=== PATIENT | male | born 1945 | race Caucasian/White ===

== ENCOUNTER 2024-04-25 13:10 | Inpatient (IN) | payer OTHER, SELFPAY ==
[2024-04-25] VITALS (11 sets, daily range): BP systolic 120–146; BP diastolic 53–83; PULSE 78–89; RESP 20–42; TEMP 36.1–37.1; O2SAT 87–99; BMI 25.0; BMI 25.2
--- NOTE | 2024-04-25 14:38 | XR_ITS ---
Examination: PA lateral chest 2 views Technique: Upright PA lateral chest 2 views Exam date and time: April 25, 2024 1458 hrs. Indications: Shortness of breath today. Findings: Extensive bilateral pneumonia, poorly defined pulmonary mass in the lingular segment Please see the PET/CT scan report 01/22/2024 indicating mediastinal lymphadenopathy and 4.9 cm pulmonary mass left lung Moderate to large right pleural effusion Normal heart size Impression: Extensive bilateral pneumonia Moderate to large right pleural effusion Pulmonary mass in the lingular segment
--- NOTE | 2024-04-25 14:38 | EKG_ITS ---
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
--- NOTE | 2024-04-25 14:39 | EDNOTE_ITS ---
ED General RME/HPI General Chief complaint: Shortness of Breath/Dyspnea Stated complaint: SHORTNESS OF BREATH Time Seen by Provider: 04/25/24 16:42 Arrival date/time: 04/25/24 13:10 CC: Shortness of breath HPI ongoing for the past days progressive worsening, the patient has a history of COPD lung cancer and Parkinson's. States that this episode is lasting 3 days with worsening shortness of breath. Last episode was 1 month ago where the patient's chronic shortness of breath worsened. and patient deny any fever but states he has had a positive cough. Denies any chest pain at this time. Related Data Home Medications ?Medication ?Instructions ?Recorded ?Confirmed cholecalciferol (vitamin D3) 10 400 mg PO DAILY SUPPLEMENT ##0 03/29/13 02/18/24 mcg (400 unit) tablet (Vitamin D3) finasteride 5 mg tablet 5 mg PO DAILY ##0 03/29/13 02/18/24 omeprazole 40 mg capsule,delayed 40 mg PO QDAY 01/23/18 02/18/24 release albuterol sulfate 90 mcg/actuation 2 puff inhalation Q4H PRN sob 10/08/21 02/18/24 aerosol inhaler aspirin 81 mg tablet,delayed 81 mg PO QDAY 10/08/21 02/18/24 release carbidopa ER 50 mg-levodopa 200 mg 1 tab PO HS 10/08/21 09/13/22 tablet,extended release cetirizine 10 mg tablet 10 mg PO QDAY 10/08/21 02/18/24 diclofenac sodium 0.1 % eye drops 1 drp ophthalmic (eye) BID 10/08/21 09/13/22 fluticasone 250 mcg-salmeterol 50 1 inh inhalation BID 10/08/21 09/13/22 mcg/dose blistr powdr for inhalation (Wixela Inhub) melatonin 5 mg tablet 5 - 10 mg PO HS 10/08/21 02/18/24 metformin 750 mg tablet,extended 750 mg PO QDAY 10/08/21 02/18/24 release 24 hr moxifloxacin 0.5 % eye drops 1 drp ophthalmic (eye) QID 10/08/21 09/13/22 paroxetine HCl 40 mg tablet 40 mg PO QDAY 10/08/21 02/18/24 prednisolone acetate 1 % eye 1 drp ophthalmic (eye) QID 10/08/21 09/13/22 drops,suspension roflumilast 500 mcg tablet 500 mcg PO QDAY 10/08/21 02/18/24 simvastatin 40 mg tablet 60 mg PO HS 10/08/21 02/18/24 tiotropium bromide 2.5 2 puff inhalation QDAY 10/08/21 09/13/22 mcg/actuation mist for inhalation trazodone 100 mg tablet 150 mg PO HS 10/08/21 02/18/24 docusate sodium 250 mg capsule 250 mg PO QDAY 09/13/22 09/13/22 isosorbide mononitrate 30 mg 30 mg PO QDAY 09/13/22 09/13/22 tablet,extended release 24 hr carbidopa 25 mg-levodopa 100 mg 1 tab PO QID 02/18/24 02/18/24 tablet carbidopa ER 50 mg-levodopa 200 mg 1 tab PO QDAY 02/18/24 02/18/24 tablet,extended release donepezil 5 mg tablet 5 mg PO QDAY 02/18/24 02/18/24 fluticasone 500 mcg-salmeterol 50 1 inh inhalation Q12H 02/18/24 02/18/24 mcg/dose blistr powdr for inhalation (Wixela Inhub) metoprolol succinate 100 mg 100 mg PO QDAY 02/18/24 02/18/24 tablet,extended release 24 hr Previous Rx's ?Medication ?Instructions ?Recorded methylprednisolone 4 mg tablets in 4 mg PO QDAY #21 tabs 09/15/22 a dose pack (Medrol (Idris)) hydrocodone 5 mg-acetaminophen 325 1 tab PO Q6H PRN pain #20 tabs 04/28/23 mg tablet Allergies Allergy/AdvReac Type Severity Reaction Status Date / Time No Known Allergies Allergy Verified 04/25/24 13:16 Review of Systems Review of Systems Narrative Review of Systems: GEN: No fever, no chills, no weight loss EYES: No discharge, no visual changes, no pain HEENT: No ear pain, no congestion, no sore throat PULM: + shortness of breath, +cough, no congestion CV: No chest pain, no dyspnea on exertion, no palpitations GI: No nausea, no vomiting, no diarrhea, no pain, no constipation : No frequency, no urgency, no dysuria MUSC/SKEL: No joint pain, no back pain SKIN: No rash PSYCH: No hallucinations, no depression HEME/LYMPH: No easy bleeding or bruising tendencies NEURO: No weakness, no headache Past Medical History Past Medical History NEUROLOGIC: Positive Neurological Disorders and Transient Ischemic Attacks (TIA) CARDIAC: Positive Cardiac Disorders, Hypercholesterolemia, Congestive Heart Failure and Hypertension RESPIRATORY: Positive Chronic Obstructive Pulmonary Disease (COPD) and Pneumonia GASTROINTESTINAL: Positive Gastrointestinal Disorders GENITOURINARY: Negative Genitourinary Disorders or Renal Disease MUSCULOSKELETAL: Positive Musculoskeletal Disorders, Arthritis, Gout and Fractures ENT: Positive Cataracts ENDOCRINE: Positive Endocrine Disorders and Diabetes Mellitus Type 2; Negative Diabetes Mellitus Type 1 HEMATOLOGIC: Negative Blood Disorders OTHER HISTORY: Positive Falls, Chicken Pox, Measles and Mumps; Negative Autoimmune Disease Family History FAMILY HISTORY: Positive Family Respiratory Disorders and Family Cardiac Disorders; Negative Family Psychiatric Problems, Family Gastrointestinal Problems, Family Cancer, Family Surgery or Family Anesthesia Reaction Surgical History SURGICAL: Positive Abdominal Surgery Social History SMOKING STATUS: Never smoker SECOND HAND EXPOSURE: No SUBSTANCE USE: former substance user (marijuana) ED Exam Narrative Physical exam: [General: Mild discomfort but not in any acute distress Head normocephalic HEENT: Eyes: Pupils are PERRLA EOMs are intact all other subsystems of HEENT are within acceptable limits Neck is supple nontender no JVD Chest equal chest rise nontender to palpation Respiratory: Tachypneic, clear to auscultation no wheezes crackles or rubs CV: Rate rhythm is regular no murmurs rubs or clicks Abdomen is soft nontender no masses positive bowel sounds all 4 quadrants Back: No CVA tenderness no spinous process tenderness from cervical spine thoracic and lumbar spine Skin: Intact no petechiae rash induration ulceration or crepitus Extremities: Moving all extremity against resistance cap refill less than 2 seconds neurosensory intact Neuro: Awake alert oriented x3 Glascow coma 15 no focal deficits] Course Course Course Narrative: Patient's case, laboratory findings and imaging discussed Dr. Gregorio, resident, for Dr. Hill who agrees to accept the patient for admission. Quality Measures none Orders Category Date Time Status Bedside COVID-19 Antigen Test NOW Care 04/25/24 14:38 Completed EKG (ED ONLY) *Do not use* NOW Care 04/25/24 14:38 Completed EKG (ED Only) Stat Exams 04/25/24 14:38 Draft XR chest 2V Stat Exams 04/25/24 14:38 Completed B-Type Natriuretic Peptide Stat Lab 04/25/24 15:57 Completed CBC Stat Lab 04/25/24 15:57 Completed Comprehensive Metabolic Panel Stat Lab 04/25/24 15:57 Completed Drug Screen,Urine Stat Lab 04/25/24 17:55 Completed Influenza A & B Rapid Panel Stat Lab 04/25/24 15:14 Completed LDH (Lactate Dehydrogenase) Stat Lab 04/25/24 15:57 Completed Magnesium Stat Lab 04/25/24 15:57 Completed Partial Thromboplastin Time Stat Lab 04/25/24 15:57 Completed Prothrombin Time with INR Stat Lab 04/25/24 15:57 Completed Troponin I Stat Lab 04/25/24 15:57 Completed Urinalysis Stat Lab 04/25/24 17:53 Completed cefTRIAXone/D5w 1gm IV premix [Rocephin/D5w 1gm IV Med 04/25/24 16:42 Discontinued premix] 50 ml IV X1 Vital Signs Vital signs: Vital Signs Temperature 98.2 F 04/25/24 13:59 Pulse Rate 78 04/25/24 13:59 Respiratory Rate 20 04/25/24 13:59 Blood Pressure 124/69 04/25/24 13:59 Pulse Oximetry (%) 95 04/25/24 13:59 Oxygen Delivery Method Nasal Cannula 04/25/24 13:59 Oxygen Flow Rate 6 04/25/24 13:59 [facility] Patient data External records reviewed:: [facility] previous records Clinical information provided by:: patient and spouse Social determinants that could affect healthcare access:: none Patient has the following chronic illnesses:: COPD lung cancer Parkinson's How is presenting disease/condition affected by chronic disease/condition?: e xacerbated by Evaluation data The following diagnostics were reviewed and interpreted by me:: lab results, radiology exam(s) and EKG tracing(s) Lab and/or radiology exams considered but not ordered:: CBC shows a leukocytosis 17,000 , stable anemia, no thrombocytopenia EKG performed at 1459 shows a ventricular rate of 81 OH interval 163 QRS of 92 QTc of 428 this is sinus rhythm with occasional PVC. Chest x-ray shows significant pneumonia with moderate to large pleural effusion. Coags within acceptable limits Interpretation Summary: Laboratory results show significant pneumonia in addition to a moderate to large sized pleural effusion with a history of lung cancer I am not sure if this is a malignant effusion or not. Patient will need to be admitted for further workup and evaluation. Medications Medications considered but not ordered:: None Medication administrations:: Medication Administration History Acetaminophen (Acetaminophen 325 Mg Tablet) 650 mg PO Q6H PRN PRN Reason: Fever >100.5 Stop: 05/25/24 17:46 Acetaminophen (Acetaminophen 325 Mg Tablet) 650 mg PO Q6H PRN PRN Reason: PAIN SCALE 1-3 (mild Stop: 05/25/24 17:46 Albuterol/Ipratropium (Albuterol/Ipratropium (Duoneb) Rt Lianna 3 Ml Nebu) 3 ml INH Q6HRRT BETTYE Stop: 05/25/24 18:59 Last Admin: 04/25/24 18:30 Dose: 3 ml Documented By: JACQUIE Albuterol/Ipratropium (Albuterol/Ipratropium (Duoneb) Rt Lianna 3 Ml Nebu) 3 ml INH Q4HRRT PRN PRN Reason: shortness of breath Stop: 05/25/24 18:59 Azithromycin (Azithromycin 250 Mg Tablet) 500 mg PO QDAY [facility] Stop: 05/02/24 17:59 Last Admin: 04/25/24 19:17 Dose: 500 mg Documented By: EVITA Dextrose (Dextrose 50%-Water Inj 50 Ml Syringe) 25 ml IV Q15MIN PRN PRN Reason: BG 50-70 responsive npo pt Stop: 05/25/24 20:22 Dextrose (Dextrose 50%-Water Inj 50 Ml Syringe) 50 ml IV Q15MIN PRN PRN Reason: BG <50 OR BG <70 & pt unresponsive Stop: 05/25/24 20:22 Docusate Sodium (Docusate Sod 100 Mg Capsule) 100 mg PO QDAY [facility]; Protocol Stop: 05/25/24 17:59 Last Admin: 04/25/24 19:18 Dose: 100 mg Documented By: EVITA Glucagon (Glucagon Inj 1 Mg Vial) 1 mg IM Q15MIN PRN PRN Reason: BG <70, and no IV access Heparin Sodium (Porcine) (Heparin Sod Inj 5000 Unit/Ml Vial) 5,000 unit SC Q8HR BETTYE Stop: 05/09/24 17:59 Last Admin: 04/25/24 22:08 Dose: 5,000 unit Documented By: ISREAL Co-signed By: SHANKAR Admin: 12/22/24 19:18 Dose: 5,000 unit Documented By: EVITA Co-signed By: YONI Ceftriaxone Sodium/Dextrose (Rocephin/D5w 1gm Iv Premix) 50 mls @ 100 mls/hr IV QDAY [facility] Stop: 05/03/24 08:59 Insulin Human Lispro (Insulin Lispro (Admelog) 1 Unit/0.01 Ml Unit) 0 unit SC [facility]; Protocol Stop: 05/25/24 20:59 Last Admin: 04/25/24 22:21 Dose: Not Given Documented By: ISREAL Non-Admin Reason: Patient Refused Insulin Human Regular (Insulin Hum Regular 1 Unit/0.01 Ml (Per Unit)) 0 unit SC [facility]; Protocol Stop: 05/25/24 20:59 Methylprednisolone Sodium Succinate (Methylprednisolone Sod Succ 40 Mg Vial) 40 mg IVP BID [facility] Stop: 05/02/24 20:59 Last Admin: 04/25/24 21:57 Dose: 40 mg Documented By: ISREAL Ondansetron HCl (Ondansetron Inj 2 Mg/Ml Inj 2 Ml) 4 mg IV Q6H PRN; Protocol PRN Reason: NAUSEA OR VOMITING Stop: 05/25/24 17:46 Discontinued Medications Ceftriaxone Sodium/Dextrose (Rocephin/D5w 1gm Iv Premix) 50 mls @ 100 mls/hr IV X1 ONE Stop: 04/25/24 17:11 Last Infusion: 04/25/24 19:05 Dose: Infused Documented By: Admin: 04/25/24 17:19 Dose: 100 mls/hr Documented By: CAR Magnesium Sulfate (Magnesium Sulfate Ivpb) 4 gm in 50 mls @ 12.5 mls/hr IV X1 ONE Stop: 04/25/24 22:07 Last Admin: 04/25/24 21:59 Dose: 12.5 mls/hr Documented By: ISREAL Magnesium Sulfate (Magnesium Sulfate Ivpb) 2 gm in 50 mls @ 25 mls/hr IV X1 ONE Stop: 04/25/24 20:07 Last Admin: 04/25/24 18:59 Dose: Not Given Documented By: ED Non-Admin Reason: Duplicate Medication on eMAR None Consultations Consultation(s) initiated? (list below): No Diagnosis Differential Diagnosis ED Complaint MDM: Pneumonia COPD exacerbation CHF Most likely diagnosis given after review of the tests above:: Pneumonia Admission Indicated Admission indicated?: indicated Explain why admission is indicated or not indicated:: Further medical management Admission Request Was there a request for admission?: No Disposition Plan Disposition Plan: Admit Medical Decision Making Differential Diagnosis Differential Diagnosis: Pneumonia COPD exacerbation CHF Lab Data 04/25/24 15:57 04/25/24 15:57 Labs: Lab Results 04/25/24 04/25/24 Range/Units 15:14 15:57 WBC 17.0 H (3.8-10.6) Thou/mm3 RBC 4.94 (4.50-5.90) Miln/mm3 Hgb 10.9 L (13.5-16.0) g/dL Hct 37.8 L (41.0-53.0) % MCV 77 L (80-100) fL MCH 22.1 L (25.0-35.0) pg MCHC 28.8 L (31.0-37.0) g/dl RDW Std Deviation 42.8 (35.1-43.9) fL Plt Count 296 (140-440) Thou/mm3 Neut % (Auto) 84 H (37-80) % Lymph % (Auto) 7 L (10-50) % [place] % (Auto) 8 (0-12) % Eos % (Auto) 0 (0-10) % Baso % (Auto) 0 (0-2.5) % Neut # (Auto) 14.2 H (1.8-7.7) Thou/mm3 Lymph # (Auto) 1.2 (1.0-4.8) Thou/mm3 [place] # (Auto) 1.4 H (0.0-0.8) Thou/mm3 Eos # (Auto) 0.0 (0.0-0.5) Thou/mm3 Baso # (Auto) 0.0 (0.0-0.2) Thou/mm3 Immature Gran # (Auto) 0.18 H (0.00-0.00) Thou/mm3 Absolute Nucleated RBC 0.00 (0.00-0.00) Thou/mm3 Immature Gran % 1 H (0-0) % Nucleated RBC % 0 (0) /100 WBC PT 14.2 H (9.0-12.2) Seconds INR 1.3 (0.9-1.3) APTT 27.5 (22.0-36.0) Seconds Sodium 136 (136-145) mMol/L Potassium 4.7 (3.4-5.1) mMol/L Chloride 96 L (98-107) mMol/L Carbon Dioxide 32.7 H (20.0-31.0) mMol/L Anion Gap 7 (7-16) BUN 21 (9-23) mg/dL Creatinine 0.8 (0.6-1.3) mg/dL Estim Creat Clear Calc 69.8 (>60) mL/min eGFR > 60 (60 - ) See Note BUN/Creatinine Ratio 26 H (12-20) Ratio Glucose 133 H (74-106) mg/dL Calculated Osmolality 276 (275-295) Calcium 9.3 (8.3-10.6) mg/dL Corrected Calcium 9.5 (8.5-10.1) mg/dL Magnesium 1.4 L (1.6-2.6) mg/dL Total Bilirubin 0.4 (0.3-1.2) mg/dL AST < 8 (0-34) U/L ALT < 7 L (10-49) U/L Alkaline Phosphatase 86 (46-116) U/L Lactate Dehydrogenase 193 (120-246) U/L Troponin I < 0.020 (0.0-0.045) ng/mL B-Natriuretic Peptide 671 H* (0-100) pg/mL Total Protein 6.5 (5.7-8.2) gm/dL Albumin 3.8 (3.4-4.8) gm/dL Globulin 2.7 (2.3-3.5) gm/dL Albumin/Globulin Ratio 1.4 (1.2-2.2) Influenza A (Rapid) Negative Influenza B (Rapid) Negative Discharge Plan Plan Patient Disposition: Admit Acute Care w/in Hospital Patient condition on transfer: Stable Problem List Clinical Impression: Pneumonia, Pleural effusion, Shortness of breath PA/[employer] Supervising Physician PA/[employer] Supervising Physician: Harinder Guevara ENP
--- NOTE | 2024-04-25 14:48 | PC.NURSE ---
Pt. and spouse to room 10 via wheel chair, here from home, pt. is on home O2 NC daily 2L. Spouse states pt. has been SOB X 3 days, spouse states pt. has COPD, CA. Pt. states he has been coughing up thick clear sputum. Pt. states he has been getting weaker.
[2024-04-25 16:07] LABS: Influenza A Ag Negative; Influenza B Ag Negative
[2024-04-25 16:20] LABS: Basophils % (Auto) 0 % (0-2.5); Eosinophils % (Auto) 0 % (0-10); Hematocrit 37.8 % (41.0-53.0); Hemoglobin 10.9 g/dL (13.5-16.0); Immature Granulocytes % (Auto) 1 % (0-0); Immature Granulocytes Auto 0.18 Thou/mm3 (0.00-0.00); Lymphocytes # (Auto) 1.2 Thou/mm3 (1.0-4.8); Lymphocytes % (Auto) 7 % (10-50); Mean Corpuscular HGB Conc 28.8 g/dl (31.0-37.0); Mean Corpuscular Hemoglobin 22.1 pg (25.0-35.0); Mean Corpuscular Volume 77 fL (80-100); Monocytes # (Auto) 1.4 Thou/mm3 (0.0-0.8); Monocytes % (Auto) 8 % (0-12); Neutrophils # (Auto) 14.2 Thou/mm3 (1.8-7.7); Neutrophils % (Auto) 84 % (37-80); Nucleated Red Blood Cell % 0 /100 WBC (0); Platelet Count 296 Thou/mm3 (140-440); RDW Standard Deviation 42.8 fL (35.1-43.9); Red Blood Count 4.94 Miln/mm3 (4.50-5.90)
[2024-04-25 16:38] LABS: INR 1.3 (0.9-1.3); Partial Thromboplastin Time 27.5 Seconds (22.0-36.0); Prothrombin Time 14.2 Seconds (9.0-12.2)
[2024-04-25 17:05] LABS: Alanine Aminotransferase < 7 U/L (10-49); Albumin, Serum 3.8 gm/dL (3.4-4.8); Albumin/Globulin Ratio 1.4 (1.2-2.2); Alkaline Phosphatase 86 U/L (46-116); Anion Gap 7 (7-16); BUN/Creatinine Ratio 26 Ratio (12-20); Bilirubin,Total 0.4 mg/dL (0.3-1.2); Blood Urea Nitrogen 21 mg/dL (9-23); Calcium 9.3 mg/dL (8.3-10.6); Calcium (Corrected) 9.5 mg/dL (8.5-10.1); Carbon Dioxide 32.7 mMol/L (20.0-31.0); Chloride 96 mMol/L (98-107); Creatinine (Component) 0.8 mg/dL (0.6-1.3); Estimated Creatinine Clearance 69.8 mL/min (>60); Globulin 2.7 gm/dL (2.3-3.5); Glucose 133 mg/dL (74-106); LDH (Lactate Dehydrogenase) 193 U/L (120-246); Magnesium 1.4 mg/dL (1.6-2.6); Osmolality,Calculated 276 (275-295); Potassium 4.7 mMol/L (3.4-5.1); Sodium 136 mMol/L (136-145); Total Protein 6.5 gm/dL (5.7-8.2); Troponin I < 0.020 ng/mL (0.0-0.045); eGFR > 60 See Note
[2024-04-25 17:08] LABS: B-Type Natriuretic Peptide 671 pg/mL (0-100)
[2024-04-25] MEDS: cefTRIAXone/D5w 1gm IV premix 50 ML IV (17:19)
[2024-04-25 17:38] LABS: Aspartate Amino Transferase < 8 U/L (0-34)
--- NOTE | 2024-04-25 18:02 | ESHP_ITS ---
Documentation for date of: 04/25/24 [facility] History of Present Illness Chief complaint: Shortness of breath History of present illness: 78-year-old male with past medical history of hypertension, COPD on 2 L home oxygen, diabetes mellitus recently diagnosed lung mass, Parkinson's disease presented to the ED due to progressive shortness of breath. Patient for the past 3 days has been feeling short of breath with productive clear white phlegm associated with generalized weakness. Patient at home uses 2 L of home oxygen but had to increase his oxygen to 3 L however continued to feel short of breath and decided to bring the patient to the ED. Patient also endorses some mild lower abdominal pain. Denies fevers, chills, chest pain, nausea, vomiting, leg swelling. Patient will be admitted for acute hypoxic respiratory failure secondary to COPD exacerbation and bilateral pneumonia. ED course: Vitals on arrival BP 124/69, heart rate 78, tachypnea respiratory rate of 20, O2 sat 95% on 6 L nasal cannula. CBC significant for some leukocytosis 17, CHEM panel unremarkable except for hypomagnesemia 1.4. Chest x-ray was done showed bilateral pneumonia right-sided pleural effusion and pulmonary mass. EKG was done showed sinus rhythm with some occasional PVCs PMHx: Hypertension, COPD, diabetes, lung mass, Parkinson's SX Hx: Hernia surgery Social Hx: Former smoker quit in 2002, social drinker, denies illicit drug use FHx: Unknown Review of Systems Review of Systems Narrative Review of Systems: Narrative ROS GENERAL: Denies fevers/chills or diaphoresis. HEENT: Denies headache or visual/hearing changes. Denies nasal discharge. NEURO: Denies unusual weakness or difficulty speaking. CARDIO: Denies chest pain or palpitations. PULM: + SOB, coughing, or wheezing. GI: Denies abdominal pain, N/V/C/D/reflux/gas, bright red blood per rectum or melena. Reports having BMs. URO: Denies burning/itching/pain/urinary changes. MSK/EXT/SKIN: Denies joint/skeletal/muscle pain, issues/changes in upper or lower extremities, itchiness, or superficial pain. PSYCH: Cooperative, pleasant mood & affect. The rest of the review of systems is otherwise negative. Exam Vital Signs Temp Pulse Resp BP Pulse Ox O2 Del Method O2 Flow Rate 97.9 F 87 34 H 124/53 L 95 Nasal Cannula 1.5 04/25/24 16:14 04/25/24 16:14 04/25/24 16:14 04/25/24 16:14 04/25/24 16:14 04/25/24 16:14 04/25/24 16:14 Narrative Exam Physical Exam GENERAL: NAD, AAOx3 HEENT: Moist mucosa. Eyes open, symmetrical, & clear CARDIO: Heart RRR, no obvious murmurs PULM: + coughing/dyspnea, productive of white phlegm, bilateral wheezing, decreased breath sounds in the right GI: Abdomen soft, nondistended, pain on palpation of hypogastric region. BSx4 SKIN/MSK/EXT: No wounds/rashes/edema/amputations, no pain on palpation. Pedal pulses present B/L NEURO: AAOx3, no focal neuro deficits, able to move all 4 extremities Results: Labs 04/25/24 15:57 04/25/24 15:57 Labs: Short CBC 04/25/24 Range/Units 15:57 WBC 17.0 H (3.8-10.6) Thou/mm3 Hgb 10.9 L (13.5-16.0) g/dL Hct 37.8 L (41.0-53.0) % Plt Count 296 (140-440) Thou/mm3 BMP 04/25/24 15:57 Sodium 136 Potassium 4.7 Chloride 96 L Carbon Dioxide 32.7 H BUN 21 Creatinine 0.8 Glucose 133 H Calcium 9.3 Cardiac Enzymes 04/25/24 Range/Units 15:57 Troponin I < 0.020 (0.0-0.045) ng/mL Liver Function 04/25/24 Range/Units 15:57 Total Bilirubin 0.4 (0.3-1.2) mg/dL AST < 8 (0-34) U/L ALT < 7 L (10-49) U/L Alkaline Phosphatase 86 (46-116) U/L Albumin 3.8 (3.4-4.8) gm/dL Quality Measures Quality Measures VTE prophylaxis Advance care planning discussed with:: patient Medications Home Medications and Allergies Home Medications ?Medication ?Instructions ?Recorded ?Confirmed ?Type cholecalciferol (vitamin D3) 10 400 mg PO DAILY SUPPLEMENT ##0 03/29/13 02/18/24 History mcg (400 unit) tablet (Vitamin D3) finasteride 5 mg tablet 5 mg PO DAILY ##0 03/29/13 02/18/24 History omeprazole 40 mg capsule,delayed 40 mg PO QDAY 01/23/18 02/18/24 History release albuterol sulfate 90 mcg/actuation 2 puff inhalation Q4H PRN sob 10/08/21 02/18/24 History aerosol inhaler aspirin 81 mg tablet,delayed 81 mg PO QDAY 10/08/21 02/18/24 History release carbidopa ER 50 mg-levodopa 200 mg 1 tab PO HS 10/08/21 09/13/22 History tablet,extended release cetirizine 10 mg tablet 10 mg PO QDAY 10/08/21 02/18/24 History diclofenac sodium 0.1 % eye drops 1 drp ophthalmic (eye) BID 10/08/21 09/13/22 History fluticasone 250 mcg-salmeterol 50 1 inh inhalation BID 10/08/21 09/13/22 History mcg/dose blistr powdr for inhalation (Wixela Inhub) melatonin 5 mg tablet 5 - 10 mg PO HS 10/08/21 02/18/24 History metformin 750 mg tablet,extended 750 mg PO QDAY 10/08/21 02/18/24 History release 24 hr moxifloxacin 0.5 % eye drops 1 drp ophthalmic (eye) QID 10/08/21 09/13/22 History paroxetine HCl 40 mg tablet 40 mg PO QDAY 10/08/21 02/18/24 History prednisolone acetate 1 % eye 1 drp ophthalmic (eye) QID 10/08/21 09/13/22 History drops,suspension roflumilast 500 mcg tablet 500 mcg PO QDAY 10/08/21 02/18/24 History simvastatin 40 mg tablet 60 mg PO HS 10/08/21 02/18/24 History tiotropium bromide 2.5 2 puff inhalation QDAY 10/08/21 09/13/22 History mcg/actuation mist for inhalation trazodone 100 mg tablet 150 mg PO HS 10/08/21 02/18/24 History docusate sodium 250 mg capsule 250 mg PO QDAY 09/13/22 09/13/22 History isosorbide mononitrate 30 mg 30 mg PO QDAY 09/13/22 09/13/22 History tablet,extended release 24 hr carbidopa 25 mg-levodopa 100 mg 1 tab PO QID 02/18/24 02/18/24 History tablet carbidopa ER 50 mg-levodopa 200 mg 1 tab PO QDAY 02/18/24 02/18/24 History tablet,extended release donepezil 5 mg tablet 5 mg PO QDAY 02/18/24 02/18/24 History fluticasone 500 mcg-salmeterol 50 1 inh inhalation Q12H 02/18/24 02/18/24 History mcg/dose blistr powdr for inhalation (Wixela Inhub) metoprolol succinate 100 mg 100 mg PO QDAY 02/18/24 02/18/24 History tablet,extended release 24 hr Allergies Allergy/AdvReac Type Severity Reaction Status Date / Time No Known Allergies Allergy Verified 04/25/24 13:16 Visit Medications Acetaminophen (Acetaminophen 325 Mg Tablet) 650 mg PO Q6H PRN PRN Reason: Fever >100.5 Stop: 05/25/24 17:46 Acetaminophen (Acetaminophen 325 Mg Tablet) 650 mg PO Q6H PRN PRN Reason: PAIN SCALE 1-3 (mild Stop: 05/25/24 17:46 Albuterol/Ipratropium (Albuterol/Ipratropium (Duoneb) Rt Lianna 3 Ml Nebu) 3 ml INH Q6HRRT BETTYE Stop: 05/25/24 18:59 Albuterol/Ipratropium (Albuterol/Ipratropium (Duoneb) Rt Lianna 3 Ml Nebu) 3 ml INH Q4HRRT PRN PRN Reason: shortness of breath Stop: 05/25/24 18:59 Azithromycin (Azithromycin 250 Mg Tablet) 500 mg PO QDAY [facility] Stop: 05/02/24 17:59 Docusate Sodium (Docusate Sod 100 Mg Capsule) 100 mg PO QDAY [facility]; Protocol Stop: 05/25/24 17:59 Heparin Sodium (Porcine) (Heparin Sod Inj 5000 Unit/Ml Vial) 5,000 unit SC Q8HR [facility] Stop: 05/09/24 17:59 Ceftriaxone Sodium/Dextrose (Rocephin/D5w 1gm Iv Premix) 50 mls @ 100 mls/hr IV QDAY BETTYE Stop: 05/02/24 17:57 Methylprednisolone Sodium Succinate (Methylprednisolone Sod Succ 40 Mg Vial) 40 mg IVP BID [facility] Stop: 05/02/24 20:59 Ondansetron HCl (Ondansetron Inj 2 Mg/Ml Inj 2 Ml) 4 mg IV Q6H PRN; Protocol PRN Reason: NAUSEA OR VOMITING Stop: 05/25/24 17:46 Discontinued Medications Ceftriaxone Sodium/Dextrose (Rocephin/D5w 1gm Iv Premix) 50 mls @ 100 mls/hr IV X1 ONE Stop: 04/25/24 17:11 Last Admin: 04/25/24 17:19 Dose: 100 mls/hr Assessment & Plan Plan 78-year-old male with past medical history of hypertension, COPD on 2 L home oxygen, diabetes mellitus recently diagnosed lung mass, Parkinson's disease presented to the ED due to progressive shortness of breath. Patient for the past 3 days has been feeling short of breath with productive clear white phlegm associated with generalized weakness. Admitted for acute on chronic hypoxic respiratory failure secondary to bilateral pneumonia. #Acute on chronic hypoxic respiratory failure secondary to #COPD exacerbation #Bilateral pneumonia Patient presented with progressive shortness of breath over 3 days, elevated WBCs Patient uses 2-1/2 L of home oxygen On physical exam found to have bilateral wheezing, decreased breath sounds on the right Chest x-ray shows bilateral pneumonia, right pleural effusion, pulmonary mass -DuoNebs every 6 scheduled -DuoNebs every 4 as needed -Azithromycin 500 mg p.o. daily -Ceftriaxone IV 1 g daily -IV Solu-Medrol 40 mg twice daily -Wean O2 as tolerated #Right pleural effusion Evidenced on chest x-ray -Consider thoracentesis if respiratory status does not improve #? Urinary retention Patient complaining of mild lower abdominal pain, endorses trouble starting stream BUN/creatinine acceptable -Ordered Gómez catheter #Diabetes melitis type II -Follow-up A1c -SSI -Hypoglycemia protocol #Lung cancer Evidenced by previous imaging studies and chest x-ray in ED Patient is following [facility] -Follow-up outpatient #Hypomagnesemia -Ordered 6 g of magnesium replacement Follow-up CMP in a.m. Case discussed with my attending Dr. Samuel Agrawal MD PGY-1 Disposition: Med telemetry Fluids: None Feeding: Carb consistent Thrombo prophylaxis: Heparin Gastric Ulcer prophylaxis: None CODE STATUS: Full code Attending Provider Attestation/Addendum I have examined the patient, reviewed labs and imaging findings, discussed the case with the resident(s), and reviewed entered orders. I agree with the plan of care as outlined in this note, with these additional summaries/recommendations: Patient is a 78-year-old male with a medical history of COPD on home oxygen 2.5 L, recently diagnosed left upper lobe lung carcinoma, Parkinson's disease, diabetes mellitus type 2, and chronic pain who presents to [facility] emergency department on 04/25/2024 with chief complaint of worsening shortness of breath and productive cough. Patient diagnosed with acute on chronic hypoxic respiratory failure and hospitalist team consulted for continuation of care. #Acute on chronic hypoxic respiratory failure Most likely secondary to severe bilateral pneumonia from gram-negative rods +/- COPD +/- lung carcinoma +/- pleural effusion. Baseline 2.5 L and currently requiring 6 L. Treat underlying cause and wean oxygen as tolerated #Significant bilateral pneumonia Most likely secondary to gram-negative rods. Start IV Rocephin and azithromycin. Continue oxygen and repeat hematology panel in AM. # COPD exacerbation: DuoNebs scheduled and as needed. On azithromycin. Start IV Solu-Medrol # Pleural effusion: Large right pleural effusion seen on chest x-ray. We will consider thoracentesis if respiratory status does not improve # Lung cancer: as seen at imaging. Following at the [facility]. Follow-up outpatient # Diabetes mellitus type 2: Start insulin sliding scale and order A1c. Target blood sugar of 140-180 while hospitalized. # Hypomagnesia: Mild and replacement given repeat level in AM. #? Urinary retention: Patient has not produced urine in the ED. Order Gómez catheter and monitor urinary output. Creatinine and BUN relatively within normal limits at this time. Dr. Baker
[2024-04-25 18:14] LABS: Collection Type, Urine Clean Catch; Squamous Epithelial Cell,Urine 0 /hpf (0-5)
[2024-04-25 18:25] LABS: Bilirubin,Urine Negative (Negative); Blood,Urine Negative (Negative); Clarity,Urine Clear (Clear/Hazy); Color,Urine Yellow (Lt Yel-Yel); Glucose, Urine Negative (Negative); Ketones,Urine Negative (Negative); Leukocyte Esterase,Urine Negative (Negative); Nitrite,Urine Negative (Negative); Protein,Urine Trace (Neg - Trace); RBC,Urine 1 /hpf (0-3); Specific Gravity,Urine 1.026 (1.001-1.035); WBC,Urine 1 /hpf (0-5)
[2024-04-25] MEDS: ALBUTEROL/IPRATROPIUM (Duoneb) RT SOL 3 ML NEBU INH (18:30)
[2024-04-25 18:34] LABS: Amphetamine/Methamp Scrn,U Negative (Negative); Barbiturate Screen,Urine Negative (Negative); Benzodiazepines Screen,Urine Negative (Negative); Benzoylecgonine Screen, Ur Negative (Negative); Fentanyl Screen,Urine Negative (Negative); Opiate Screen,Urine Negative (Negative); THC Screen,Urine Negative (Negative)
--- NOTE | 2024-04-25 18:50 | PC.NURSE ---
called Dr. Freedman [phone] for clarification on Magnesium order, Dr. Freedman states he will cancel the 2 gm order and pt. needs to be given the 4 gm order of Magnesium.
[2024-04-25] MEDS: AZITHROMYCIN 250 MG TABLET 500 MG PO (19:17)
[2024-04-25] MEDS: HEPARIN SOD INJ 5000 UNIT/ML VIAL SC ×2 (19:18→22:08)
[2024-04-25] MEDS: DOCUSATE SOD 100 MG CAPSULE PO (19:18)
[2024-04-25] MEDS: Magnesium Sulfate 4 GM Ivpb 4 GM/50 ML BAG IV (21:59)
[2024-04-26] VITALS (8 sets, daily range): BP systolic 118–147; BP diastolic 59–83; PULSE 76–96; RESP 16–25; TEMP 36.3–37.1; O2SAT 91–100
[2024-04-26] MEDS: ALBUTEROL/IPRATROPIUM (Duoneb) RT SOL 3 ML NEBU INH ×3 (01:06→12:28)
[2024-04-26] MEDS: HEPARIN SOD INJ 5000 UNIT/ML VIAL SC (05:00)
[2024-04-26 05:57] LABS: Basophils % (Auto) 0 % (0-2.5); Eosinophils % (Auto) 0 % (0-10); Hematocrit 35.2 % (41.0-53.0); Hemoglobin 10.4 g/dL (13.5-16.0); Immature Granulocytes % (Auto) 1 % (0-0); Immature Granulocytes Auto 0.18 Thou/mm3 (0.00-0.00); Lymphocytes # (Auto) 0.7 Thou/mm3 (1.0-4.8); Lymphocytes % (Auto) 5 % (10-50); Mean Corpuscular HGB Conc 29.5 g/dl (31.0-37.0); Mean Corpuscular Hemoglobin 22.3 pg (25.0-35.0); Mean Corpuscular Volume 75 fL (80-100); Monocytes # (Auto) 0.7 Thou/mm3 (0.0-0.8); Monocytes % (Auto) 4 % (0-12); Neutrophils # (Auto) 13.4 Thou/mm3 (1.8-7.7); Neutrophils % (Auto) 90 % (37-80); Nucleated Red Blood Cell % 0 /100 WBC (0); Platelet Count 260 Thou/mm3 (140-440); RDW Standard Deviation 42.7 fL (35.1-43.9); Red Blood Count 4.67 Miln/mm3 (4.50-5.90); White Blood Count 14.9 Thou/mm3 (3.8-10.6)
[2024-04-26 06:36] LABS: Glucose Estimated Average 126 mg/dL (80-131)
[2024-04-26 06:49] LABS: Alanine Aminotransferase 8 U/L (10-49); Albumin, Serum 3.5 gm/dL (3.4-4.8); Albumin/Globulin Ratio 1.3 (1.2-2.2); Alkaline Phosphatase 86 U/L (46-116); Anion Gap 6 (7-16); Aspartate Amino Transferase < 8 U/L (0-34); BUN/Creatinine Ratio 29 Ratio (12-20); Bilirubin,Total 0.3 mg/dL (0.3-1.2); Blood Urea Nitrogen 20 mg/dL (9-23); Calcium 9.2 mg/dL (8.3-10.6); Calcium (Corrected) 9.6 mg/dL (8.5-10.1); Carbon Dioxide 31.9 mMol/L (20.0-31.0); Cardiac Risk Estimate 2.5 RATIO (4.0-6.7); Chloride 98 mMol/L (98-107); Cholesterol 84 mg/dL (132-200); Creatinine (Component) 0.7 mg/dL (0.6-1.3); Estimated Creatinine Clearance 79.8 mL/min (>60); Globulin 2.7 gm/dL (2.3-3.5); Glucose 183 mg/dL (74-106); HDL Cholesterol 33 mg/dL (40-60); LDL Cholesterol,Calculated 36 mg/dL (0-130); Osmolality,Calculated 279 (275-295); Phosphorous 4.3 mg/dL (2.4-5.1); Potassium 4.4 mMol/L (3.4-5.1); Sodium 136 mMol/L (136-145); Thyroid Stimulating Hormone 0.76 uIU/mL (0.55-4.78); Total Protein 6.2 gm/dL (5.7-8.2); Triglycerides 75 mg/dL (30-150); eGFR > 60 See Note
--- NOTE | 2024-04-26 07:22 | PC.NURSE ---
[facility] called to report that pt had a a bigeminy, day team MD was made aware. No new orders fro pt at this time.
[2024-04-26] MEDS: INSULIN LISPRO (AdmeLOG) 1 UNIT/0.01 ML UNIT SC ×2 (07:53→11:32)
[2024-04-26] MEDS: DOCUSATE SOD 100 MG CAPSULE PO (08:11)
[2024-04-26] MEDS: AZITHROMYCIN 250 MG TABLET 500 MG PO (08:11)
[2024-04-26] MEDS: cefTRIAXone/D5w 1gm IV premix 50 ML IV (08:12)
--- NOTE | 2024-04-26 10:23 | PC.SS ---
Initial assessment.: This is 78 year old male admitted for AHFR. Patient appeared alert and oriented. Patient confirmed demographic information. [address] address is [address] [place] [address]. Patient lives at home with spouse, Ellie and grandchildren. Patient's spouse, Ellie Haile was identified as the patient's alternate medical surrogate decision maker. Patient describes to require some assistance with ADL's. Patient has a walker, wheelchair and home oxygen, baseline is 2L of O2. DME vendor is [employer]. Patient's PCP is Dr. Jesus Arcos with [facility]. Pharmacy is through [place]. The discharge plan was discussed, and the patient would like to return home once medically cleared. Family to assist with transportation home. instructional support services director to remain available to address any concerns. D/c plan: home Next of kin: spouse, Ellie Haile
--- NOTE | 2024-04-26 10:34 | PD.RESPRO ---
Documentation for date of: 04/26/24 Exam Vital Signs Temp Pulse Resp BP Pulse Ox O2 Del Method O2 Flow Rate 98.5 F 85 16 118/74 91 L Nasal Cannula 1 04/26/24 07:53 04/26/24 07:53 04/26/24 07:53 04/26/24 07:53 04/26/24 07:53 04/26/24 07:53 04/26/24 07:53 Objective Labs 04/26/24 05:25 04/26/24 05:25 Labs: Laboratory Results - last 24 hr 04/25/24 04/25/24 04/25/24 15:14 15:57 17:53 WBC 17.0 H RBC 4.94 Hgb 10.9 L Hct 37.8 L MCV 77 L MCH 22.1 L MCHC 28.8 L RDW Std Deviation 42.8 Plt Count 296 Neut % (Auto) 84 H Lymph % (Auto) 7 L [place] % (Auto) 8 Eos % (Auto) 0 Baso % (Auto) 0 Neut # (Auto) 14.2 H Lymph # (Auto) 1.2 [place] # (Auto) 1.4 H Eos # (Auto) 0.0 Baso # (Auto) 0.0 Immature Gran # (Auto) 0.18 H Absolute Nucleated RBC 0.00 Immature Gran % 1 H Nucleated RBC % 0 PT 14.2 H INR 1.3 APTT 27.5 Sodium 136 Potassium 4.7 Chloride 96 L Carbon Dioxide 32.7 H Anion Gap 7 BUN 21 Creatinine 0.8 Estim Creat Clear Calc 69.8 eGFR > 60 BUN/Creatinine Ratio 26 [address] Glucose [address] Glu mg/dL Hemoglobin A1c Calculated Osmolality 276 Calcium 9.3 Corrected Calcium 9.5 Phosphorus Magnesium 1.4 L Total Bilirubin 0.4 AST < 8 ALT < 7 L Alkaline Phosphatase 86 Lactate Dehydrogenase 193 Troponin I < 0.020 B-Natriuretic Peptide 671 H* Total Protein 6.5 Albumin 3.8 Globulin 2.7 Albumin/Globulin Ratio 1.4 Triglycerides Cholesterol LDL Cholesterol, Calc HDL Cholesterol Cholesterol/HDL Ratio TSH Ur Collection Type Clean Catch Urine Color Yellow Urine Clarity Clear Urine pH 6.0 Ur Specific [place] 1.026 Urine Protein Trace Urine Glucose (UA) Negative Urine Ketones Negative Urine Blood Negative Urine Nitrite Negative Urine Bilirubin Negative Urine Urobilinogen (Auto) 4.0 Ur Leukocyte Esterase Negative Urine RBC 1 Urine WBC 1 Ur Squamous Epith Cells 0 Urine Bacteria None Urine Opiates Screen Urine Fentanyl Screen Ur Barbiturates Screen U Amphetamin/Meth Scrn U Benzodiazepines Scrn U Cocaine Metab Screen U Marijuana (THC) Screen Influenza A (Rapid) Negative Influenza B (Rapid) Negative 04/25/24 04/26/24 17:55 05:25 WBC 14.9 H RBC 4.67 Hgb 10.4 L Hct 35.2 L MCV 75 L MCH 22.3 L MCHC 29.5 L RDW Std Deviation 42.7 Plt Count 260 D Neut % (Auto) 90 H Lymph % (Auto) 5 L [place] % (Auto) 4 Eos % (Auto) 0 Baso % (Auto) 0 Neut # (Auto) 13.4 H Lymph # (Auto) 0.7 L [place] # (Auto) 0.7 Eos # (Auto) 0.0 Baso # (Auto) 0.0 Immature Gran # (Auto) 0.18 H Absolute Nucleated RBC 0.00 Immature Gran % 1 H Nucleated RBC % 0 PT INR APTT Sodium 136 Potassium 4.4 Chloride 98 Carbon Dioxide 31.9 H Anion Gap 6 L BUN 20 Creatinine 0.7 Estim Creat Clear Calc 79.8 eGFR > 60 BUN/Creatinine Ratio 29 H Glucose [address] Glu mg/dL 126 Hemoglobin A1c 6.0 Calculated Osmolality 279 Calcium 9.2 Corrected Calcium 9.6 Phosphorus 4.3 Magnesium 2.0 Total Bilirubin 0.3 AST < 8 ALT 8 L Alkaline Phosphatase 86 Lactate Dehydrogenase Troponin I B-Natriuretic Peptide Total Protein 6.2 Albumin 3.5 Globulin 2.7 Albumin/Globulin Ratio 1.3 Triglycerides 75 Cholesterol 84 L LDL Cholesterol, Calc 36 HDL Cholesterol 33 L Cholesterol/HDL Ratio 2.5 L TSH 0.76 Ur Collection Type Urine Color Urine Clarity Urine pH Ur Specific [place] Urine Protein Urine Glucose (UA) Urine Ketones Urine Blood Urine Nitrite Urine Bilirubin Urine Urobilinogen (Auto) Ur Leukocyte Esterase Urine RBC Urine WBC Ur Squamous Epith Cells Urine Bacteria Urine Opiates Screen Negative Urine Fentanyl Screen Negative Ur Barbiturates Screen Negative U Amphetamin/Meth Scrn Negative U Benzodiazepines Scrn Negative U Cocaine Metab Screen Negative U Marijuana (THC) Screen Negative Influenza A (Rapid) Influenza B (Rapid) Quality Measures Quality Measures none Assessment & Plan Assessment Current Active Medications: Generic Name Dose Route Start Last Admin Trade Name Freq PRN Reason Stop Dose Admin Acetaminophen 650 mg 04/25/24 17:47 Acetaminophen 325 Mg Tablet PO 05/25/24 17:46 Q6H PRN Fever >100.5 Acetaminophen 650 mg 04/25/24 17:47 Acetaminophen 325 Mg Tablet PO 05/25/24 17:46 Q6H PRN PAIN SCALE 1-3 (mild Albuterol/Ipratropium 3 ml 04/25/24 19:00 04/26/24 06:59 Albuterol/Ipratropium (Duoneb) Rt Lianna 3 Ml Nebu INH 05/25/24 18:59 3 ml Q6HRRT BETTYE Administration Albuterol/Ipratropium 3 ml 04/25/24 17:57 Albuterol/Ipratropium (Duoneb) Rt Lianna 3 Ml Nebu INH 05/25/24 18:59 Q4HRRT PRN shortness of breath Azithromycin 500 mg 04/25/24 18:00 04/26/24 08:11 Azithromycin 250 Mg Tablet PO 05/02/24 17:59 500 mg QDAY BETTYE Administration Carbidopa/Levodopa 1 tab 04/26/24 10:15 Carbidopa/Levodopa Cr 50/200 Tabcr PO 05/26/24 10:14 BIDWM BETTYE Carbidopa/Levodopa 1 tab 04/26/24 12:00 Carbidopa/Levodopa 25/100 Mg Tablet PO 05/26/24 11:59 TIDWM BETTYE Dextrose 25 ml 04/25/24 20:23 Dextrose 50%-Water Inj 50 Ml Syringe IV 05/25/24 20:22 Q15MIN PRN BG 50-70 responsive npo pt Dextrose 50 ml 04/25/24 20:23 Dextrose 50%-Water Inj 50 Ml Syringe IV 05/25/24 20:22 Q15MIN PRN BG <50 OR BG <70 & pt unresponsive Docusate Sodium 100 mg 04/25/24 18:00 04/26/24 08:11 Docusate Sod 100 Mg Capsule PO 05/25/24 17:59 100 mg QDAY BETTYE Administration Protocol Glucagon 1 mg 04/25/24 20:23 Glucagon Inj 1 Mg Vial IM Q15MIN PRN BG <70, and no IV access Heparin Sodium (Porcine) 5,000 unit 04/25/24 18:00 04/26/24 05:00 Heparin Sod Inj 5000 Unit/Ml Vial SC 05/09/24 17:59 5,000 unit Q8HR BETTYE Administration Ceftriaxone Sodium/Dextrose 50 mls @ 100 mls/hr 04/26/24 09:00 04/26/24 08:12 Rocephin/D5w 1gm Iv Premix IV 05/03/24 08:59 100 mls/hr QDAY BETTYE Administration Insulin Human Lispro 0 unit 04/25/24 21:00 04/26/24 07:53 Insulin Lispro (Admelog) 1 Unit/0.01 Ml Unit SC 05/25/24 20:59 1 unit ACHS BETTYE Administration Protocol Methylprednisolone Sodium Succinate 40 mg 04/25/24 21:00 04/26/24 08:11 Methylprednisolone Sod Succ 40 Mg Vial IVP 05/02/24 20:59 40 mg BID BETTYE Administration Ondansetron HCl 4 mg 04/25/24 17:47 Ondansetron Inj 2 Mg/Ml Inj 2 Ml IV 05/25/24 17:46 Q6H PRN NAUSEA OR VOMITING Protocol
[2024-04-26] MEDS: CARBIDOPA/LEVODOPA CR 50/200 TABCR 1 TAB PO (11:32)
[2024-04-26] MEDS: CARBIDOPA/LEVODOPA 25/100 MG TABLET 1 TAB PO (11:32)
--- NOTE | 2024-04-26 12:11 | ESDS_ITS ---
Planned Discharge Date 04/26/24 DS: Providers Provider Date of admission: 04/25/24 17:47 Primary care physician: Ernesto Arcos MD Admitting Provider: Ho Baker MD Attending Provider on Admission: Ho Baker MD Attending Provider on DC: Nik Rizo DO Discharging Provider: Germain Agrawal MD Anticipated date of discharge: 04/26/24 DS: Diagnosis Problem List Completed Was Problem List Reviewed/Reconciled?: Yes Hospital Course Hospital Course Hospital course: 78-year-old male with past medical history of hypertension, COPD on 2 L home oxygen, diabetes mellitus recently diagnosed lung mass, Parkinson's disease presented to the ED due to progressive shortness of breath for 3 days with productive clear white sputum and generalized weakness. Patient was admitted for Acute on Chronic hypoxic respiratory failure. During hospital stay patient was given breathing treatments scheduled and as needed, was given antibiotics for COPD exacerbation as well as for pneumonia which was found on chest xray and steroid medication. Patients oxygen requirements were titrated back to baseline with adequate improvement. Patient on admission stated having some trouble urinating and was given flomax for BPH. Diabetes was managed with sliding scale insulin, hypomagnesemia and other electrolyte abnormalities were repleted. As far as patients lung cancer patient has follow up appointment in 1 month with Oncology for management of said condition. Patient at this time is medically stable for discharge. Can return home to complete three more days of steroid treatments for his COPD exacerbation as well as 6 more days of augmentin for his pneumonia. Patient can continue all home medications as previously prescribed except for prednisolone. Follow up with PCP in 1-2 weeks. Problem list: #Acute on chronic hypoxic respiratory failure secondary to #COPD exacerbation #Bilateral pneumonia #Right pleural effusion #? Urinary retention #Diabetes melitis type II #Lung cancer #Hypomagnesemia Case discussed with my senior Dr. Bkaer PGY-[address] Sallie Agrawal MD PGY-1 Status at Discharge Functional status at discharge: independent ambulation Overall status at discharge: patient is back to baseline Time Spent with Patient Time attestation: Total time spent providing and/or coordinating discharge services: Exam Vital Signs Temp Pulse Resp BP Pulse Ox O2 Del Method O2 Flow Rate 97.4 F 86 17 139/83 H 94 L Nasal Cannula 2 04/26/24 11:34 04/26/24 11:34 04/26/24 11:34 04/26/24 11:34 04/26/24 11:34 04/26/24 11:34 04/26/24 11:34 Discharge Plan Plan Patient Disposition: HOME (Self Care) Patient condition on transfer: Stable Care Plan Goals: Can return home to complete three more days of steroid treatments for his COPD exacerbation as well as 6 more days of augmentin for his Pneumonia. Patient can continue all home medications as previously prescribed except for prednisolone. Follow up with PCP in 1-2 weeks. Prescriptions/Referrals Prescriptions/Med Rec: New prednisone 20 mg tablet 40 mg PO QDAY 3 Days Qty: 6 0RF amoxicillin-pot clavulanate 875-125 mg tablet 1 tab PO BID 6 Days Qty: 12 0RF Continued cholecalciferol (vitamin D3) [Vitamin D3] 400 UNIT tablet 400 mg PO DAILY Qty: 0 finasteride 5 MG tablet 5 mg PO DAILY Qty: 0 omeprazole 40 mg Capsule,Delayed Release(Dr/Ec) 40 mg PO QDAY fluticasone propion-salmeterol [Wixela Inhub] 250-50 mcg/dose Blister With Device 1 inh INHALATION BID cetirizine 10 mg Tablet 10 mg PO QDAY carbidopa-levodopa 50-200 mg Tablet Extended Release 1 tab PO HS aspirin 81 mg Tablet,Delayed Release (Dr/Ec) 81 mg PO QDAY simvastatin 40 mg Tablet 60 mg PO HS Rx Instructions: half tab po hs. prednisolone acetate 1 % Drops,Suspension 1 drp OPHTHALMIC (EYE) QID Rx Instructions: left eye. trazodone 100 mg Tablet 150 mg PO HS diclofenac sodium 0.1 % Drops 1 drp OPHTHALMIC (EYE) BID Rx Instructions: left eye. albuterol sulfate 90 mcg/actuation Hfa Aerosol Inhaler 2 puff INHALATION Q4H PRN (Reason: sob) paroxetine HCl 40 mg Tablet 40 mg PO QDAY moxifloxacin 0.5 % Drops 1 drp OPHTHALMIC (EYE) QID Rx Instructions: left eye. metformin 750 mg Tablet Extended Release 24 Hr 750 mg PO QDAY melatonin 5 mg Tablet 5 - 10 mg PO HS roflumilast 500 mcg Tablet 500 mcg PO QDAY tiotropium bromide 2.5 mcg/actuation Mist 2 puff INHALATION QDAY isosorbide mononitrate 30 mg Tablet Extended Release 24 Hr 30 mg PO QDAY docusate sodium 250 mg Capsule 250 mg PO QDAY hydrocodone-acetaminophen 5-325 mg tablet 1 tab PO Q6H MDD 4 PRN (Reason: pain) Qty: 20 0RF fluticasone propion-salmeterol [Wixela Inhub] 500-50 mcg/dose Blister With Device 1 inh INHALATION Q12H donepezil 5 mg Tablet 5 mg PO QDAY carbidopa-levodopa 50-200 mg Tablet Extended Release 1 tab PO QDAY metoprolol succinate 100 mg Tablet Extended Release 24 Hr 100 mg PO QDAY carbidopa-levodopa 25-100 mg Tablet 1 tab PO QID Discontinued methylprednisolone [Medrol (Idris)] 4 mg tablets,dose pack 4 mg PO QDAY Qty: 21 0RF Rx Instructions: follow dose idris instructions Referrals: Ernesto Arcos MD [Primary Care Provider] - Patient/Caregiver Discharge Instructions Education Materials: Pleural Effusion, Shortness of Breath Maximizing ..., What Is Pneumonia?, Preventing Pneumonia Print Language: Syriac Stand Alone Forms: Esmer Award Info., Patient Portal Info Letter Discharge Order Discharge Orders: Discharge (Routine); Ordered 04/26/24 Ordered By: Germain Agrawal Quality Discharge Quality Measures VTE prophylaxis Attestestation MD Attestation I have discussed and was present for the essential components of the discharge history, physical examination, diagnosis, and discharge treatment plan with the resident. I agree with the patient's discharge care as documented by the resident and amended herein by me. Kingston Rizo, . The patient understood all discharge instructions, all questions were answered satisfactorily. The patient was instructed to return to the Emergency Department is symptoms worsened or persisted. Although this document has been carefully reviewed, there may still be some phonetic and other typographical errors. These errors are purely grammatical due to imperfections in the software program and should not be construed in any way to compromise the substance of the patient's medical care during this visit. This
--- NOTE | 2024-04-26 13:36 | PC.NURSE ---
dc education given to patient, patient , patient daughter at bedside. pt alert and oriented gcs 15. no signs of distress noted.
== END 2024-04-26 13:35 | disposition home or self-care (01) | DRG 190 ==
LOC: SERX 17:04 → SERHOLD 18:46 → S3NX 19:59
PROVIDERS: Registered Nurse General Practice; Student in an Organized Health Care Education/Training Program; Admitting Provider Student in an Organized Health Care Education/Training Program; Emergency Provider Emergency Medicine; PCP Anesthesiology; Visit Provider Student in an Organized Health Care Education/Training Program
DX: J44.1 Chronic obstructive pulmonary disease with (acute) exacerbation (principal); J18.9 Pneumonia, unspecified organism; J96.21 Acute and chronic respiratory failure with hypoxia; J90 Pleural effusion, not elsewhere classified; C34.90 Malignant neoplasm of unspecified part of unspecified bronchus or lung; J44.0 Chronic obstructive pulmonary disease with (acute) lower respiratory infection; E11.9 Type 2 diabetes mellitus without complications; E83.42 Hypomagnesemia; I10 Essential (primary) hypertension; G20.A1 Parkinson's disease without dyskinesia, without mention of fluctuations; N40.1 Benign prostatic hyperplasia with lower urinary tract symptoms; R33.8 Other retention of urine; Z99.81 Dependence on supplemental oxygen
CPT/HCPCS: 36415; 71046; 80053; 80061; 80307; 81001; 83036; 83615; 83735; 83880; 84100; 84443; 84484; 85025; 85610; 85730; 87086; 87502; 87811; 93005; 93225; 94640; 96365; 96366; 96372; 99285; A9270; J0696; J1643; J1815; J2919; J3475; J1644

== ENCOUNTER 2024-05-31 09:56 | Outpatient (RCR) | payer OTHER, SELFPAY ==
--- NOTE | 2024-05-25 16:36 | CTCCONSULT_ITS ---
[facility] [address] [place], [place] [address] Consultation Note Date: 05/25/2024 MR#: [id number] Name: MARY ART : 1945 Dx: C34.82 Malignant neoplasm of overlapping sites of left bronchus and lung Referring physician. Ernesto Jeffries MD Reason for consultation. Patient reported differentiated carcinoma left lung referred to the cancer treatment center. History of Present Illness: Patient is a 78-year-old gentleman who had diagnosis of for differential carcinoma involving the left lung following a biopsy performed 12/15/2023. Patient apparently had [facility] x-ray that showed left lung infiltrate and PET scan 09/22/2023 showed hypermetabolic mass left lung largest lesion 3.5 cm with no obvious sign of extrathoracic mets. Had more recent PET scan at [facility] which showed hypermetabolic mass lingular segment of the left upper lobe 3.5 x 4.9 c m along with extensive mediastinal lymphadenopathy. Patient also developed right pleural effusion an d had 700 cc removed by thoracentesis on 02/18/2024. Patient has been followed recently by Dr. Criselda mckeon in [place] who reportedly has ordered biopsies to check on PD-L1 and vending route driver mutations result is not immediately available to me. Referred for radiation oncology consultation. Past Medical History: History of COPD CHF high blood pressure prostatism gallbladder disease Meds. Albuterol amantadine carbidopa levodopa donezepil finasteride melatonin metformin metoprolol p aroxetine omeprazole simvastatin trazodone Allergies none to meds Social History: Patient is a [place] lives in [place]. Prior smoker occasional drinker. Review of Systems: Shortness of breath trouble swallowing heartburn memory loss nausea nocturia pain in abdomen cold heat intolerance coughing coughing up blood difficulty hearing easy bruising anxiety Physical Exam: General: Well-appearing gentleman in no acute distress HEENT: Atraumatic no cephalic extraocular is intact no oral lesion no cervical or supraclavicular ezekiel nopathy CV: Decreased breath sounds left greater than right heart regular rate and rhythm ABD: Soft and organomegaly tenderness EXT: No sinus clubbing or edema. 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 2. Had seen medical oncologist Dr. Jeffries who has checked PD-L1 and for vending route driver mutations results are not immediately available to myself. 3. Will check with Dr. Jeffries about any systemic therapy that could be added to the schedule radiati on therapy. 4. Generally 6000 cGy delivered to the gross tumor areas. Will get CT scan for simulation which tayo l also check on his current tumor situation in the chest. Thank you very much for allow me to evalua te this patient Cc: Ernesto Jeffries MD Electronically signed by: Omar Kay MD, DABR 05/25/2024 4:34 PM
--- NOTE | 2024-05-25 16:37 | CTCTXPLN_ITS ---
[facility] [address] [place], [place] [address] Physician Clinical Treatment Planning Note Date of Service: 05/25/2024 Name: MARY VALVERDECAT SunB.: 1945 The patient has agreed to proceed with Radiation therapy. Tests and supporting medical records were interpreted to assist in defining the tumor location and extent of disease. Further imaging will be necessary to contour and delineate the volume to which the XRT will be provided. A. Treatment Intent: Curative B. Modality: 6 MV C. Requested Technique: VMAT D. Treatment Site: Left chest E. Critical structures to be contoured on plan: F. In order to accomplish this plan, I am ordering/Prescribing the followin. Simulations (s) will be performed to accomplish a reproducible treatment position, to determine op timal treatment portals/beam arrangements, to design beam modifying devices and verify treatment port als on patient prior to the commencement of Radiation Therapy. Left chest 2. Devices; for immobilization and beam shaping: Vac-Christal 3. CT Guidance for placement of XRT barrios Scan area: 4. Portal images Frequency: 5. Invivo transit dose measurement once per week on all VMAT patients. 6. Special Physics Consult Requested for: 7. Other requests: Special. Someone getting chemo and radiation G. Dose Objectives: Curative Electronically signed by: Omar Kay M.D. 05/25/2024 4:35 PM
--- NOTE | 2024-05-25 16:38 | CTCTXPLNST_ITS ---
Radiation Oncology Treatment Planning Sheet Name: MARY ART MR#: [id number] : 1945 Dx: C34.82 Malignant neoplasm of overlapping sites of left bronchus and lung Date of Service: 05/25/2024 Account #: ?? Pt ` Treatment Intent: curative palliative other: Stage: Procedure CPT # Ordered Spec. Procedure 93926 1 Valentino Complex (set-up) 81475 1 Valentino Simple 10609 IMRT Plan 79375 1 MLC Devices VMAT 91006 3 Valentino 3 D 82880 TRTMT dev Complex 40309 Vac-Christal 1 TRTMT dev simple 40581 Basic Eren 46596 9 Special Dosimetry 77117 Spec Physics 82821 Port Films 80126 SRS Cranial/1FX 46987 SBR 5 FX or Less /ex: 5 = 5 fx 44506 IMRT Simple 14034 6000 30 IMRT Complex 25170 IGRT 27293 28 Rad del com 6-10 23823 Rad del com 11- 28036 6 Cont Med Physics 64488 1 Treatment Planning 23404 Rad del com 20 mev 19261 Rad del inter 6-10 00867 Rad del inter 11 52329 Rad del simple 6-10 94488 Rad del simple 11- 11876 Special Port Plan 41653 TRTMT dev inter 34528 Isodose Complex 71218 Isodose simple 09836 Resp Motion Mgmt Simulation 41102 Placement of Fiducial Markers 22548 Electronically Signed By: Omar Kay MD, DABR 05/25/2024 4:36 PM
== END 2024-06-04 23:59 | disposition home or self-care (01) ==
LOC: SCTC 09:56
PROVIDERS: Referring Provider Radiology Therapeutic Radiology; Visit Provider Radiology Therapeutic Radiology
DX: C34.12 Malignant neoplasm of upper lobe, left bronchus or lung (principal)
CPT/HCPCS: 77014; 77290; 77300; 77301; 77334; 77338

== ENCOUNTER 2024-06-24 09:41 | Outpatient (RCR) | payer OTHER, SELFPAY | END 2024-07-02 23:59 | disposition home or self-care (01) | LOC: SCTC 09:41 | PROVIDERS: PCP Physician Assistant; Referring Provider Internal Medicine Hematology & Oncology; Visit Provider Radiology Therapeutic Radiology | DX: Z51.0 Encounter for antineoplastic radiation therapy (principal); C34.12 Malignant neoplasm of upper lobe, left bronchus or lung | CPT/HCPCS: 77336; 77385 ==

== ENCOUNTER 2024-06-25 09:39 | Inpatient (IN) | payer OTHER, SELFPAY ==
[2024-06-25] VITALS (13 sets, daily range): BP systolic 129–153; BP diastolic 55–73; PULSE 67–80; RESP 18–28; TEMP 36.4–37.1; O2SAT 89–100; BMI 18.3; BMI 20.2
--- NOTE | 2024-06-25 09:46 | EKG_ITS ---
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: : 1945 Requested By: Ileana Fitzgerald Order Number: [id number] Reading MD: Ileana Fitzgerald Measurements Intervals Vanduser Rate: 76 P: HI: QRS: 118 QRSD: 86 T: 109 QT: 395 QTc: 444 Interpretive Statements SUPRAVENTRICULAR RHYTHM MARKED RIGHT AXIS DEVIATION [QRS AXIS > 100] LEFT VENTRICULAR HYPERTROPHY AND ST-T CHANGE [VOLTAGE CRITERIA PLUS ST/T ABNORMALITY] Compared to ECG 04/25/2024 14:59:14 Supraventricular rhythm now present Right-axis deviation now present Left ventricular hypertrophy now present ST (T wave) deviation now present Sinus rhythm no longer present Ventricular premature complex(es) no longer present /store/S0/[id number]/ecg/[id number].pdf
--- NOTE | 2024-06-25 09:48 | XR_ITS ---
Examination: CTA chest with intravenous contrast 2-D reconstructions 3-D reconstructions, vascular Date and time of exam: June 25, 2024 1143 hours INDICATIONS: Onset shortness of breath today, diagnosis lung cancer COMPARISON: May 09, 2016 CTDI: vol (mGy) 12.9 DLP: (mGycm) 371 Technique: Multiple axial sections of the thorax have been obtained. 3 mm slice thickness, from below the hemidiaphragms to above the apices of the lungs. Mediastinal and lung density settings have been obtained. 2-D sagittal and coronal reconstructions. 3-D angiographic renderings, 3-D volume renderings, 3D post processing, vascular maximum intensity projections obtained. Contrast administered is 100 cc Isovue-370. Low dose protocols were performed. One or more of the following dose reduction techniques were used; automated exposure control, adjustment of the mA and/or KV according to patient size, use of iterative reconstruction technique. Findings: No thoracic aortic aneurysmal dilatation Filling defects in the distal right main pulmonary artery and lower lobe branches, for instance axial images 102 through 113 COPD with areas of airspace destruction Pneumonia versus infarction right base with moderate right pleural fluid Atelectasis in the lingular segment Multiple subcentimeter splenic lesions No gallstones No pancreatic mass IMPRESSION: Positive for pulmonary artery emboli in the distal right main pulmonary artery right lower lobe pulmonary artery branches COPD Pneumonia versus infarction right base with moderate right pleural fluid Recommend splenic sonography to assess multiple splenic lesions
--- NOTE | 2024-06-25 09:49 | XR_ITS ---
Examination: AP chest single view Technique one AP portable semiupright chest single view Exam date and time: June 25, 2024 1013 hours Comparison April 25, 2024 INDICATIONS: Shortness of breath today FINDINGS: No significant cardiac enlargement Pneumonia right lung with at least moderate right pleural fluid Mild pneumonia left base Prominent osteopenia IMPRESSION: Significant right lung pneumonia, mild left base pneumonia Moderate right pleural fluid
--- NOTE | 2024-06-25 09:50 | EDNOTE_ITS ---
ED SOB =RME/HPI General Chief Complaint: Shortness of Breath/Dyspnea Stated Complaint: SOB Time Seen by Provider: 06/25/24 09:49 Arrival date/time: 06/25/24 09:39 RME / HPI RME / HPI Narrative: Patient is a 78-year-old male with past medical history of stage 3 lung cancer under radiation treatment followed by the [facility] cancer center, COPD on 2L home O2, Parkinson's, type 2 diabetes, and hypertension who was brought in by ambulance from home due to acute shortness of breath starting this morning. Per EMS report patient was initially found saturating 77% on 2L and appearing in respiratory distress. Patient was given an albuterol treatment and placed on CPAP en route, improved saturation to 89%. Patient received his last radiation treatment yesterday. Related Data Home Medications ?Medication ?Instructions ?Recorded ?Confirmed finasteride 5 mg tablet 5 mg PO DAILY ##0 03/29/13 0 06/26/24 omeprazole 40 mg capsule,delayed 40 mg PO QDAY 8 06/26/24 release albuterol sulfate 90 mcg/actuation 2 puff inhalation Q 4H PRN sob 10/08/21 06/26/24 aerosol inhaler cetirizine 10 mg tablet 10 mg PO QDAY PRN allergy sy mptoms 10/08/21 06/26/24 fluticasone 250 mcg-salmeterol 50 1 inh inhalation BID 10/08/21 09/13/22 mcg/dose blistr powdr for inhalation (Wixela Inhub) melatonin 5 mg tablet 5 - 10 mg PO HS 10/08/21 paroxetine HCl 40 mg tablet 40 mg PO QDAY 10/08/21 trazodone 100 mg tablet 150 mg PO HS 10/08/21 docusate sodium 250 mg capsule 250 mg PO QDAY 09/13/22 06/26/24 carbidopa 25 mg-levodopa 100 mg 2 tab PO 5 TIMES DAILY 02/18/24 06/26/24 tablet donepezil 5 mg tablet 5 mg PO QDAY 02/18/24 fluticasone 500 mcg-salmeterol 50 1 inh inhalation Q12 H 02/18/24 06/26/24 mcg/dose blistr powdr for inhalation (Wixela Inhub) benzonatate 100 mg capsule 100 mg PO TID PRN cough 06/26/24 hydrocodone 5 mg-acetaminophen 325 1 tab PO Q4H PRN pa in 06/26/24 06/26/24 mg tablet megestrol 40 mg tablet 40 mg PO BID 06/26/24 ondansetron 4 mg disintegrating 4 mg PO Q8H PRN nausea and vomiting 06/26/24 06/26/24 tablet Previous Rx's ?Medication ?Instructions ?Recorded amiodarone 200 mg tablet 200 mg PO BID 30 days #60 ta bs 07/02/24 Allergies Allergy/AdvReac Type Severity Reaction Status Date / Time No Known Allergies Allergy Verified 06/25/24 09:53 Review of Systems Review of Systems ROS Unobtainable: unobtainable due to medical condition Past Medical History Past Medical History Comments PMH COMMENT: Past Medical History: Stage 3 lung cancer diagnosed 01/2024 under radiation treatment followed by the [facility] cancer center, COPD on 2L home O2, Parkinson's, type 2 diabetes, hypertension Family History: Significant for colon cancer in mother, pancreatic cancer in father, cancer in sister Surgical History: Hernia repair Social History: Former smoker quit in 2002 (80 pack year history), denies current alcohol use quit since cancer diagnosis, denies recreational drug use, former occasional marijuana use Current Medications: Albuterol, amantadine, carbidopa-levodopa, donezepil, finasteride, melatonin, metformin, metoprolol, paroxetine, omeprazole, simvastatin, trazodone (Source: Dr. Kay's note) Allergies: No known drug allergies ED Exam Narrative Physical exam: Physical Exam General: Chronically ill-appearing cachectic elderly male, awake and in mild respiratory distress. Able to only say few word sentences. HEENT: Normocephalic, atraumatic, mucous membranes moist. Heart: Regular rate and rhythm, no murmurs. Significant asymmetry of the chest wall, right side pectoralis appears more laterally displaced. Lungs: Clear to auscultation with no wheezing or crackles. Decreased breath sounds on the right side. Patient has belly breathing and is tachypneic. Abdomen: Soft, nondistended, nontender, positive bowel sounds. ?No guarding or rebound tenderness. Neurologic: Alert and oriented x3, no gross neurological deficit, and patient able to move all 4 extremities. Extremities: No edema. Skin: No rash or ecchymoses. Course Quality Measures none Orders Category Date Time Status Bedside COVID-19 Antigen Test NOW Care 06/25/24 11:26 Completed Bedside COVID-19 Antigen Test NOW Care 06/25/24 14:19 Completed Bedside Influenza A&B Antigen Test NOW Care 06/25/24 11:26 Completed COVID-19 Screening Questionnaire NOW Care 06/25/24 13:[address] Screening NOW Care 06/25/24 09:49 Completed Electrical Contractor STAT Care 06/25/24 09:46 Completed Continuous Pulse Oximetry STAT Care 06/25/24 09:46 Completed Decision to Admit X1 Care 06/25/24 13:48 Completed EKG (ED ONLY) *Do not use* NOW Care 06/25/24 09:46 Completed Insert IV NOW Care 06/25/24 09:46 Completed NPO STAT Care 06/25/24 09:46 Completed Notify provider NOW Care 06/25/24 12:42 Completed Strict Intake and Output Routine Care 06/25/24 09:46 Ordered Consult to Cardiology Stat Cons 06/25/24 13:18 Ordered CA echo doppler complete Stat Exams 06/25/24 13:[address] angio chest Stat Exams 06/25/24 09:48 Completed CXRP [XR chest 1V portable] Stat Exams 06/25/24 09:49 Completed EKG (ED Only) Stat Exams 06/25/24 09:46 Draft US pleural effusion Stat Exams 06/25/24 12:04 Completed B-Type Natriuretic Peptide Stat Lab 06/25/24 10:19 Completed Blood Culture (Lab) Stat Lab 06/25/24 10:19 Completed Body Fld Cult w Kendal & Gram St Routine Lab 06/25/24 12:13 Stop Req CBC Stat Lab 06/25/24 10:19 Completed COVID-19 Confirmatory PCR Stat Lab 06/25/24 14:25 Completed Comprehensive Metabolic Panel Stat Lab 06/25/24 10:19 Completed LDH (Lactate Dehydrogenase) Stat Lab 06/25/24 10:19 Completed Lactate (Lactic Acid) Stat Lab 06/25/24 10:19 Completed Partial Thromboplastin Time AM DRAW Lab 06/27/24 05:35 Completed Partial Thromboplastin Time Stat Lab 06/25/24 10:19 Completed Procalcitonin Stat Lab 06/25/24 10:19 Completed Prothrombin Time with INR AM DRAW Lab 06/27/24 05:35 Completed Prothrombin Time with INR Stat Lab 06/25/24 10:19 Completed Albuterol/Ipratr Rt Lianna [Duoneb Rt Lianna] Med 06/25/24 11:02 Discontinued 3 ml INH X1 ONE Heparin Inj Med 06/25/24 12:42 Discontinued 3,200 unit IV X1 ONE Heparin/D5w 25K 250 ML Ivpb [Heparin in D5w Ivpb] Med 06/25/24 12:45 Discontinued 25,000 unit in 250 ml IV 12 units/kg/hr predniSONE Med 06/25/24 10:58 Discontinued 60 mg PO X1 ONE Oxygen Delivery NOW RT 06/25/24 09:46 Completed Vital Signs Vital signs: Vital Signs Temperature 97.6 F 06/25/24 09:53 Pulse Rate 70 06/25/24 09:53 Respiratory Rate 24 H 06/25/24 09:53 Blood Pressure 150/65 H 06/25/24 09:53 Pulse Oximetry (%) 97 06/25/24 09:53 Oxygen Delivery Method BiPAP 06/25/24 09:53 Procedures -ED EKG Interpretation #1: Date of EK06/25/24 Time of EK:12 Rate: 76 Interpretation: Interpreted by me EKG Impression: Normal sinus rhythm and No acute ST-T changes Additional EKG comment: Poor quality EKG due to continual patient motion, lot of artifact but generally appears to have no ST changes. Shortness of Breath / Dyspnea MDM Narrative MDM Narrative:: Patient presented with acute hypoxia, initially per EMS patient was saturating in the 70s on his 2L nasal cannula baseline and appeared to be short of breath. Patient was given albuterol treatment and placed on CPAP, saturations improved to 89%. By the time patient reached ED, saturations improved to 97-100% on room air, however patient was very tachypneic in the high 20s. Vitals otherwise were within normal limits. Labs are showing less of a pneumonia picture given the normal WBC and normal procalcitonin, isolated tachypnea. Therefore CT angio chest was ordered in the context of risk factor lung cancer. CTA images reviewed by me, there is a moderate right sided pleural effusion therefore I ordered a US guided thoracentesis. When CTA resulted reading showed right pulmonary embolus, heparin drip was started and thoracentesis was cancelled however patient already got US done. US shows pleural fluid too little to drain safely and partially solid consolidation instead of fluid. Cardiology, Dr. Preciado was called regarding potential thrombectomy. He states that he will follow the case. Patient to start heparin and Echo to be obtained. Hospitalist team was therefore consulted for admission for acute hypoxic respiratory failure secondary to PE. Patient data External records reviewed:: [facility] previous records Clinical information provided by:: patient and spouse Social determinants that could affect healthcare access:: none Patient has the following chronic illnesses:: As above How is presenting disease/condition affected by chronic disease/condition?: exacerbated by Evaluation data The following diagnostics were reviewed and interpreted by me:: lab results, radiology exam(s) and EKG tracing(s) Lab and/or radiology exams considered but not ordered:: Ordered Interpretation Summary: --------- CTA chest with intravenous contrast Findings: No thoracic aortic aneurysmal dilatation Filling defects in the distal right main pulmonary artery and lower lobe branches, for instance axial images 102 through 113 COPD with areas of airspace destruction Pneumonia versus infarction right base with moderate right pleural fluid Atelectasis in the lingular segment Multiple subcentimeter splenic lesions No gallstones No pancreatic mass IMPRESSION: Positive for pulmonary artery emboli in the distal right main pulmonary artery right lower lobe pulmonary artery branches COPD Pneumonia versus infarction right base with moderate right pleural fluid Recommend splenic sonography to assess multiple splenic lesions --------- Chest X-Ray AP chest single view FINDINGS: No significant cardiac enlargement Pneumonia right lung with at least moderate right pleural fluid Mild pneumonia left base Prominent osteopenia IMPRESSION: Significant right lung pneumonia, mild left base pneumonia Moderate right pleural fluid --------- Medications / Prescriptions Medications or Prescriptions considered but not ordered:: Antibiotics considered but given the patient has a normal WBC, normal procalcitonin, no fevers, and lack of other respiratory symptoms it was decided that right lower lobe consolidation was more likely to be pulmonary infarct rather than pneumonia. Medication administrations:: Medication Administration History Discontinued Medications Acetaminophen (Acetaminophen 325 Mg Tablet) 650 mg PO Q6H PRN PRN Reason: Fever >100.3 or pain Stop: 07/25/24 15:24 Last Admin: 06/26/24 13:22 Dose: 650 mg Documented By: JT Hydrocodone Bitart/Acetaminophen (Hydrocodone/Apap 5/325 Tablet) 1 tab PO X1 ONE Stop: 06/28/24 19:50 Last Admin: 06/28/24 20:27 Dose: 1 tab Documented By: SARATH Albuterol/Ipratropium (Albuterol/Ipratropium (Duoneb) Rt Lianna 3 Ml Nebu) 3 ml INH X1 ONE Stop: 06/25/24 11:03 Last Admin: 06/25/24 11:24 Dose: 3 ml Documented By: ALISSA Albuterol/Ipratropium (Albuterol/Ipratropium (Duoneb) Rt Lianna 3 Ml Nebu) 3 ml INH Q6HRRT PRN PRN Reason: wheezing Stop: 07/25/24 18:59 Last Admin: 07/01/24 06:53 Dose: 3 ml Documented By: DANY Amiodarone HCl (Amiodarone Hcl 200 Mg Tablet) 200 mg PO BID BETTYE Stop: 07/28/24 09:59 Last Admin: 07/02/24 09:02 Dose: 200 mg Documented By: Admin: 07/01/24 20:33 Dose: 200 mg Documented By: Admin: 06/29/24 20:05 Dose: 200 mg Documented By: Admin: 06/29/24 09:33 Dose: 200 mg Documented By: Admin: 06/28/24 20:30 Dose: 200 mg Documented By: Admin: 06/28/24 12:05 Dose: 200 mg Documented By: ROMAIN Balsam [place]/Eagle Oil (Balsam [place]/Eagle Oil (Venelex) 60 Gm Tube) 0 gm TOP BID BETTYE Stop: 08/01/24 05:31 Last Admin: 07/02/24 08:01 Dose: 1 applicatio Documented By: Admin: 07/02/24 05:39 Dose: 1 applicatio Documented By: KHALIF Carbidopa/Levodopa (Carbidopa/Levodopa 25/100 Mg Tablet) 2 tab PO 5 TIMES DAILY BETTYE Stop: 07/26/24 21:59 Last Admin: 07/02/24 09:01 Dose: 2 tab Documented By: Admin: 07/02/24 05:40 Dose: 2 tab Documented By: Admin: 07/01/24 22:11 Dose: 2 tab Documented By: Admin: 07/01/24 17:56 Dose: 2 tab Documented By: Admin: 07/01/24 14:13 Dose: 2 tab Documented By: Admin: 07/01/24 09:41 Dose: 2 tab Documented By: Admin: 07/01/24 06:26 Dose: 2 tab Documented By: Admin: 06/30/24 22:54 Dose: 2 tab Documented By: Admin: 06/30/24 17:41 Dose: 2 tab Documented By: Admin: 06/30/24 14:08 Dose: 2 tab Documented By: Admin: 06/30/24 09:48 Dose: 2 tab Documented By: Admin: 06/30/24 06:42 Dose: 2 tab Documented By: Admin: 06/29/24 20:57 Dose: 2 tab Documented By: Admin: 06/29/24 18:20 Dose: Not Given Documented By: SYDNIE Non-Admin Reason: Held for Procedure Admin: 06/29/24 13:33 Dose: 2 tab Documented By: Admin: 06/29/24 09:33 Dose: 2 tab Documented By: Admin: 06/29/24 05:23 Dose: 2 tab Documented By: Admin: 06/28/24 21:35 Dose: 2 tab Documented By: Admin: 06/28/24 18:21 Dose: 2 tab Documented By: Admin: 06/28/24 13:13 Dose: 2 tab Documented By: Admin: 06/28/24 09:51 Dose: 2 tab Documented By: Admin: 06/28/24 05:31 Dose: 2 tab Documented By: Admin: 06/27/24 21:07 Dose: 2 tab Documented By: Admin: 06/27/24 18:04 Dose: 2 tab Documented By: Admin: 06/27/24 14:13 Dose: 2 tab Documented By: Admin: 06/27/24 09:07 Dose: 2 tab Documented By: Admin: 06/27/24 05:47 Dose: 2 tab Documented By: Admin: 06/26/24 21:08 Dose: 2 tab Documented By: WB Dextrose (Dextrose 50%-Water Inj 50 Ml Syringe) 25 ml IV Q15MIN PRN PRN Reason: BG 50-70 responsive npo pt Stop: 07/26/24 04:14 Dextrose (Dextrose 50%-Water Inj 50 Ml Syringe) 50 ml IV Q15MIN PRN PRN Reason: BG <50 OR BG <70 & pt unresponsive Stop: 07/26/24 04:14 Diltiazem HCl (Diltiazem Inj 5 Mg/Ml Vial 5 Ml) Confirm Administered Dose 25 mg IV .STK-MED ONE Stop: 06/26/24 16:48 Last Admin: 06/26/24 17:38 Dose: Not Given Documented By: AG Non-Admin Reason: OVERRIDE NOT GIVEN DURING RAPID Fentanyl Citrate (Fentanyl Cit Inj 50 Mcg/Ml Amp 2ml) Confirm Administered Dose 100 mcg .ROUTE .STK-MED ONE Stop: 06/29/24 17:41 Ferrous Sulfate (Ferrous Sulf 325 Mg Tablet) 325 mg PO QOD [facility] Stop: 07/25/24 15:44 Last Admin: 07/01/24 09:41 Dose: 325 mg Documented By: Admin: 06/29/24 09:34 Dose: 325 mg Documented By: Admin: 06/27/24 09:07 Dose: 325 mg Documented By: Admin: 06/25/24 17:06 Dose: Not Given Documented By: CARLO Non-Admin Reason: Patient Refused Finasteride (Finasteride 5 Mg Tablet) 5 mg PO QDAY [facility] Stop: 07/26/24 14:14 Last Admin: 07/02/24 09:01 Dose: 5 mg Documented By: Admin: 07/01/24 09:40 Dose: 5 mg Documented By: Admin: 06/30/24 09:04 Dose: 5 mg Documented By: Admin: 06/29/24 09:33 Dose: 5 mg Documented By: Admin: 06/28/24 09:56 Dose: 5 mg Documented By: Admin: 06/27/24 09:07 Dose: 5 mg Documented By: Admin: 06/26/24 16:05 Dose: 5 mg Documented By: BAUDILIO Glucagon (Glucagon Inj 1 Mg Vial) 1 mg IM Q15MIN PRN PRN Reason: BG <70, and no IV access Heparin Sodium (Porcine) (Heparin Sod Inj 5000 Unit/Ml Vial) 3,200 unit 60 unit/kg (3200 unit) IV X1 ONE; Protocol Stop: 06/25/24 12:43 Last Admin: 06/25/24 13:04 Dose: 3,200 unit Documented By: CARLO Co-signed By: AMANDA Heparin Sodium (Porcine) (Heparin Sod Inj 5000 Unit/Ml Vial) 3,200 unit IV X1 ONE Stop: 06/25/24 18:01 Last Admin: 06/25/24 18:04 Dose: 3,200 unit Documented By: DAAmy Co-signed By: MESSI Heparin Sodium (Porcine) (Heparin Sod Inj 5000 Unit/Ml Vial) 1,600 unit IV X1 ONE Stop: 06/26/24 01:31 Last Admin: 06/26/24 01:21 Dose: 1,600 unit Documented By: WB Co-signed By: Heparin Sodium (Porcine) (Heparin Sod Inj 5000 Unit/Ml Vial) 1,680 unit IV X1 ONE Stop: 06/26/24 10:41 Last Admin: 06/26/24 10:57 Dose: 1,680 unit Documented By: JT Co-signed By: BAUDILIO Heparin Sodium/Dextrose (Heparin In D5w Ivpb) 25,000 unit in 250 mls @ 6.368 mls/hr IV .Q24H BETTYE; Protocol Stop: 07/09/24 12:44 Last Titration: 06/26/24 11:09 Dose: 20 units/kg/hr, 10.614 mls/hr Documented By: BAUDILIO Co-signed By: MGD Titration: 06/26/24 01:21 Dose: 18 units/kg/hr, 9.553 mls/hr Documented By: WB Co-signed By: Titration: 06/25/24 17:52 Dose: 16 units/kg/hr, 8.491 mls/hr Documented By: CARLO Co-signed By: SL Admin: 06/25/24 13:09 Dose: 12 units/kg/hr, 6.368 mls/hr Documented By: DAAmy Co-signed By: AMANDA Ceftriaxone Sodium 1,000 mg/ (Sodium Chloride) 50 mls @ 100 mls/hr IV QDAY [facility] Stop: 07/02/24 15:33 Azithromycin 500 mg/ Sodium (Chloride) 250 mls @ 250 mls/hr IV QDAY@1400 BETTYE Stop: 07/01/24 13:59 Last Admin: 06/30/24 14:08 Dose: 250 mls/hr Documented By: Infusion: 06/29/24 14:33 Dose: Infused Documented By: Admin: 06/29/24 13:33 Dose: 250 mls/hr Documented By: Infusion: 06/28/24 14:13 Dose: Infused Documented By: Admin: 06/28/24 13:13 Dose: 250 mls/hr Documented By: Infusion: 06/27/24 15:14 Dose: Infused Documented By: Admin: 06/27/24 14:14 Dose: 250 mls/hr Documented By: Infusion: 06/26/24 15:58 Dose: Infused Documented By: Admin: 06/26/24 14:58 Dose: 250 mls/hr Documented By: BAUDILIO Ceftriaxone Sodium 1,000 mg/ (Sodium Chloride) 50 mls @ 100 mls/hr IV QPM BETTYE Stop: 06/30/24 15:44 Last Admin: 06/29/24 20:06 Dose: 100 mls/hr Documented By: Infusion: 06/28/24 21:00 Dose: Infused Documented By: Admin: 06/28/24 20:30 Dose: 100 mls/hr Documented By: Infusion: 06/27/24 21:38 Dose: Infused Documented By: Admin: 06/27/24 21:08 Dose: 100 mls/hr Documented By: Infusion: 06/26/24 21:39 Dose: Infused Documented By: Admin: 06/26/24 21:09 Dose: 100 mls/hr Documented By: Infusion: 06/25/24 17:05 Dose: Infused Documented By: Admin: 06/25/24 16:20 Dose: 100 mls/hr Documented By: CARLO Azithromycin 500 mg/ Sodium (Chloride) 250 mls @ 250 mls/hr IV X1 ONE Stop: 06/25/24 16:44 Last Infusion: 06/25/24 18:06 Dose: Infused Documented By: Admin: 06/25/24 16:59 Dose: 250 mls/hr Documented By: CARLO Magnesium Sulfate (Magnesium Sulfate Ivpb) 4 gm in 50 mls @ 12.5 mls/hr IV X1 ONE Stop: 06/26/24 17:24 Last Admin: 06/26/24 17:10 Dose: 12.5 mls/hr Documented By: BAUDILIO Sodium Chloride (Ns) 500 mls @ 999 mls/hr IV .Q31M ONE Stop: 06/26/24 17:27 Last Admin: 06/26/24 17:38 Dose: Not Given Documented By: AG Non-Admin Reason: Discontinued Sodium Chloride (Ns) 1,000 mls @ 999 mls/hr IV .Q1H1M ONE Stop: 06/26/24 18:02 Last Admin: 06/26/24 17:17 Dose: 999 mls/hr Documented By: BAUDILIO Amiodarone HCl/Dextrose (Nexterone Ivpb) 150 mg in 100 mls @ 600 mls/hr IV .Q10M ONE Stop: 06/26/24 18:05 Last Admin: 06/26/24 18:03 Dose: 600 mls/hr Documented By: LH Amiodarone HCl/Dextrose (Nexterone Ivpb) 360 mg in 200 mls @ 33.333 mls/hr IV .Q6H ONE Stop: 06/27/24 00:05 Last Admin: 06/26/24 18:15 Dose: 33.333 mls/hr Documented By: LH Amiodarone HCl/Dextrose (Nexterone Ivpb) 360 mg in 200 mls @ 16.667 mls/hr IV .Q12H BETTYE Stop: 06/28/24 00:05 Last Admin: 06/27/24 12:21 Dose: 16.667 mls/hr Documented By: Infusion: 06/27/24 12:21 Dose: Infused Documented By: Admin: 06/27/24 00:35 Dose: 16.667 mls/hr Documented By: WB Magnesium Sulfate (Magnesium Sulfate Ivpb) 4 gm in 50 mls @ 12.5 mls/hr IV X1 ONE Stop: 06/27/24 11:18 Last Admin: 06/27/24 09:08 Dose: 12.5 mls/hr Documented By: AV Magnesium Sulfate (Magnesium Sulfate Ivpb) 4 gm in 50 mls @ 12.5 mls/hr IV X1 ONE Stop: 06/29/24 15:53 Last Infusion: 06/29/24 17:50 Dose: Infused Documented By: Admin: 06/29/24 13:33 Dose: 12.5 mls/hr Documented By: SYDNIE Lactated Ringer's (Lactated Ringers) 1,000 mls @ 999 mls/hr IV .Q1H1M ONE Stop: 06/30/24 05:27 Last Admin: 06/30/24 05:00 Dose: 999 mls/hr Documented By: KHALIF Amiodarone HCl/Dextrose (Nexterone Ivpb) 150 mg in 100 mls @ 600 mls/hr IV .Q10M ONE Stop: 06/30/24 04:37 Last Admin: 06/30/24 04:53 Dose: 600 mls/hr Documented By: KHALIF Amiodarone HCl/Dextrose (Nexterone Ivpb) 360 mg in 200 mls @ 33.333 mls/hr IV .Q6H ONE Stop: 06/30/24 10:26 Last Infusion: 06/30/24 09:49 Dose: 0 mls/hr Documented By: Admin: 06/30/24 05:09 Dose: 33.333 mls/hr Documented By: KHALIF Amiodarone HCl/Dextrose (Nexterone Ivpb) 360 mg in 200 mls @ 16.667 mls/hr IV .Q12H BETTYE Stop: 07/01/24 10:27 Last Admin: 06/30/24 20:56 Dose: 16.667 mls/hr Documented By: Infusion: 06/30/24 20:56 Dose: Infused Documented By: Admin: 06/30/24 09:48 Dose: 16.667 mls/hr Documented By: SYDNIE Magnesium Sulfate (Magnesium Sulfate Ivpb) 2 gm in 50 mls @ 25 mls/hr IV X1 ONE Stop: 06/30/24 09:41 Last Admin: 06/30/24 09:09 Dose: 25 mls/hr Documented By: GRAY Insulin Human Lispro (Insulin Lispro (Admelog) 1 Unit/0.01 Ml Unit) 0 unit SC AC [facility]; Protocol Stop: 07/26/24 07:29 Last Admin: 07/02/24 11:53 Dose: Not Given Documented By: EVITA Non-Admin Reason: Per Protocol Admin: 07/02/24 08:00 Dose: Not Given Documented By: EVITA Non-Admin Reason: Per Protocol Admin: 07/01/24 17:06 Dose: Not Given Documented By: EVITA Non-Admin Reason: Per Protocol Admin: 07/01/24 11:35 Dose: Not Given Documented By: EVITA Non-Admin Reason: Per Protocol Admin: 07/01/24 07:35 Dose: Not Given Documented By: KD Non-Admin Reason: Per Protocol Admin: 06/30/24 17:31 Dose: Not Given Documented By: DA Non-Admin Reason: Per Protocol Admin: 06/30/24 11:23 Dose: Not Given Documented By: DA Non-Admin Reason: Per Protocol Admin: 06/30/24 07:36 Dose: Not Given Documented By: DA Non-Admin Reason: Per Protocol Admin: 06/29/24 16:56 Dose: Not Given Documented By: DA Non-Admin Reason: Per Protocol Admin: 06/29/24 11:46 Dose: Not Given Documented By: DA Non-Admin Reason: Per Protocol Admin: 06/29/24 07:33 Dose: Not Given Documented By: DA Non-Admin Reason: Per Protocol Admin: 06/28/24 16:54 Dose: Not Given Documented By: VL Non-Admin Reason: Per Protocol Admin: 06/28/24 12:02 Dose: Not Given Documented By: VL Non-Admin Reason: Per Protocol Admin: 06/28/24 07:22 Dose: Not Given Documented By: VL Non-Admin Reason: Per Protocol Admin: 06/27/24 17:58 Dose: Not Given Documented By: AV Non-Admin Reason: Per Protocol Admin: 06/27/24 12:53 Dose: Not Given Documented By: AV Non-Admin Reason: Per Protocol Admin: 06/27/24 10:38 Dose: Not Given Documented By: AV Non-Admin Reason: Per Protocol Admin: 06/26/24 17:57 Dose: Not Given Documented By: LH Non-Admin Reason: Per Protocol Admin: 06/26/24 15:39 Dose: Not Given Documented By: LH Non-Admin Reason: Per Protocol Admin: 06/26/24 10:30 Dose: Not Given Documented By: LH Non-Admin Reason: Per Protocol Megestrol Acetate (Megestrol Acet 20 Mg Tablet) 40 mg PO BID BETTYE Stop: 07/26/24 20:59 Last Admin: 07/02/24 09:02 Dose: 40 mg Documented By: Admin: 07/01/24 20:33 Dose: 40 mg Documented By: Admin: 07/01/24 09:41 Dose: 40 mg Documented By: Admin: 06/30/24 20:15 Dose: 40 mg Documented By: Admin: 06/30/24 09:04 Dose: 40 mg Documented By: Admin: 06/29/24 20:06 Dose: 40 mg Documented By: Admin: 06/29/24 09:34 Dose: 40 mg Documented By: Admin: 06/28/24 20:30 Dose: 40 mg Documented By: Admin: 06/28/24 09:51 Dose: 40 mg Documented By: Admin: 06/27/24 21:06 Dose: 40 mg Documented By: Admin: 06/27/24 09:07 Dose: 40 mg Documented By: Admin: 06/26/24 21:09 Dose: 40 mg Documented By: CAROLE Melatonin (Melatonin 3 Mg Tablet) 6 mg PO X1 ONE Stop: 06/28/24 19:50 Last Admin: 06/28/24 20:28 Dose: 6 mg Documented By: SARATH Midazolam HCl (Midazolam Inj 1 Mg/Ml Vial 2 Ml) Confirm Administered Dose 4 mg .ROUTE .STK-MED ONE Stop: 06/29/24 17:41 Midazolam HCl (Midazolam Inj 1 Mg/Ml Vial 2 Ml) 1 mg IV Q2M PRN PRN Reason: MODERATE SEDATION Stop: 06/29/24 21:01 Midazolam HCl (Midazolam Inj 1 Mg/Ml Vial 2 Ml) 1 mg IV Q2M PRN PRN Reason: SEDATION Stop: 06/29/24 21:01 Morphine Sulfate (Morphine Sulf Inj 10 Mg/Ml Vial) 2 mg IVP X1 ONE Stop: 06/29/24 14:59 Last Admin: 06/29/24 15:07 Dose: 2 mg Documented By: SYDNIE Non-Formulary Medication (Heprin) 3,200 units IVP X1 ONE Stop: 06/25/24 17:48 Last Admin: 06/25/24 18:08 Dose: Not Given Documented By: CARLO Non-Admin Reason: Duplicate Medication on eMAR Ondansetron HCl (Ondansetron Inj 2 Mg/Ml Inj 2 Ml) 4 mg IV Q6H PRN; Protocol PRN Reason: NAUSEA OR VOMITING Stop: 07/25/24 15:30 Last Admin: 06/25/24 17:11 Dose: 4 mg Documented By: CARLO Oseltamivir Phosphate (Oseltamivir 75 Mg Capsule) 75 mg PO BID BETTYE Stop: 06/30/24 15:44 Last Admin: 06/30/24 09:04 Dose: 75 mg Documented By: Admin: 06/29/24 20:57 Dose: 75 mg Documented By: Admin: 06/29/24 09:33 Dose: 75 mg Documented By: Admin: 06/28/24 20:28 Dose: 75 mg Documented By: Admin: 06/28/24 09:51 Dose: 75 mg Documented By: Admin: 06/27/24 21:05 Dose: 75 mg Documented By: Admin: 06/27/24 09:07 Dose: 75 mg Documented By: Admin: 06/26/24 21:09 Dose: 75 mg Documented By: Admin: 06/26/24 08:11 Dose: 75 mg Documented By: Admin: 06/25/24 16:20 Dose: 75 mg Documented By: CARLO Pantoprazole Sodium (Pantoprazole 40 Mg Tablet) 40 mg PO QDAY BETTYE Stop: 07/26/24 08:59 Last Admin: 06/26/24 08:11 Dose: 40 mg Documented By: RUTHANN Pantoprazole Sodium (Pantoprazole 40 Mg Tablet) 40 mg PO BID BETTYE Stop: 07/26/24 20:59 Last Admin: 06/28/24 09:51 Dose: 40 mg Documented By: Admin: 06/27/24 21:06 Dose: 40 mg Documented By: Admin: 06/27/24 09:07 Dose: 40 mg Documented By: Admin: 06/26/24 21:09 Dose: 40 mg Documented By: CAROLE Pantoprazole Sodium (Pantoprazole Inj 40 Mg Vial) 40 mg IV BID BETTYE Stop: 07/12/24 20:59 Last Admin: 07/02/24 09:01 Dose: 40 mg Documented By: Admin: 07/01/24 20:34 Dose: 40 mg Documented By: Admin: 07/01/24 09:40 Dose: 40 mg Documented By: Admin: 06/30/24 20:15 Dose: 40 mg Documented By: Admin: 06/30/24 09:04 Dose: 40 mg Documented By: Admin: 06/29/24 20:06 Dose: 40 mg Documented By: Admin: 06/29/24 09:32 Dose: 40 mg Documented By: Admin: 06/28/24 20:30 Dose: 40 mg Documented By: MLD Potassium Chloride (Potassium Chloride 10% 20 Meq/15 Ml Udc) 40 meq PO X1 ONE Stop: 06/27/24 07:20 Last Admin: 06/27/24 09:08 Dose: 40 meq Documented By: AV Prednisone (Prednisone 20 Mg Tablet) 60 mg PO X1 ONE Stop: 06/25/24 10:59 Last Admin: 06/25/24 12:32 Dose: 60 mg Documented By: CARLO Sennosides (Senna Tablet) 1 tab PO QDAY PRN; Protocol PRN Reason: constipation Stop: 07/25/24 15:30 Last Admin: 07/01/24 20:33 Dose: 1 tab Documented By: NC Trazodone HCl (Trazodone Hcl 50 Mg Tablet) 150 mg PO HS BETTYE Stop: 07/26/24 20:59 Last Admin: 07/01/24 20:32 Dose: 150 mg Documented By: Admin: 06/30/24 20:15 Dose: 150 mg Documented By: Admin: 06/29/24 20:05 Dose: 150 mg Documented By: Admin: 06/28/24 20:30 Dose: 150 mg Documented By: Admin: 06/27/24 21:06 Dose: 150 mg Documented By: Admin: 06/26/24 21:09 Dose: 150 mg Documented By: WB Given Consultations Consultation(s) initiated? (list below): Yes Consultation #1 (Physician, Specialty, Details): 12:30 Cardiology, Dr. Preciado - Contacted by Dr. Sterling regarding potential need for thrombectomy. He states that he will follow the case. Currently the patient's vitals are stable and there does not seem to be evidence of right heart strain. Patient to start heparin and Echo to be obtained. Consultation #2 (Physician, Specialty, Details): 13:44 Hospitalist Team A, Dr. Robledo and attending Dr. Dalton - Discussed the patient's history, presentation, and findings. Patient will be evaluated for admission. Diagnosis Shortness of Breath Differential Diagnosis: acute exacerbation of chronic obstructive airways disease, community acquired pneumonia, asthma with exacerbation and pulmonary embolism Most likely diagnosis given after review of the tests above:: Obstructive pneumonia, pulmonary embolism Admission Indicated Admission indicated?: indicated Explain why admission is indicated or not indicated:: Patient will require anticoagulation treatment for PE and is in acute hypoxic respiratory failure Admission Request Was there a request for admission?: Yes Admission Attestation Admission request attestation: Discussed case with [] from Hospitalist service regarding admission. Discussed patients ED course, exam findings, labs, and radiology results. The Hospitalist [agrees,declines] to accept the patient for admission. Disposition Plan Disposition Plan: Admit Discharge Plan Plan Patient Disposition: Admit Acute Care w/in Hospital Patient condition on transfer: Stable Problem List Clinical Impression: Right pulmonary embolus, Carcinoma of lung, Acute hypoxemic respiratory failure Patient/Caregiver Discharge Instructions Discharge Activity: activity as tolerated Other Activity Instructions:: 1) Follow up at [facility], [address] [place] [address]. Call [phone] for appointment. 2) Wound care to right upper chest: may shower than change dressing. Wash hands with soap and water. Remove old dressing and gauze. Cleanse site with normal saline and pat dry with gauze. Gently remove any peeling skin. Wash hands again with soap and water. Apply xeroform gauze over burn sites and cover with foam dressing. Change once a day or as needed for falling off. 3) follow-up with bank worker within 1-2 weeks 4) please continue to take amiodarone 200 mg p.o. twice daily If active bleeding occurs, apply tight dressing and return to MD or ER. ?Notify primary doctor or return to Emergency Room if any of the following: ?Fever above 100.6? F. ?Increased pain ?Increase swelling ?Red streaks around your wound ?Drainage becomes foul smelling or changes color ?The wound is larger or deeper ?The wound looks dried out or dark ?Bleeding that does not stop with holding pressure MD Attestation MD Attestation The patient was seen by the PGY 2. I, the supervising physician, also encou ntered and examined the patient and remained present during the entire ER visit. With the PGY 2 we formulated the encounter, workup, management, treatment, and medical decision making. I agree with the plan and documentation.
--- NOTE | 2024-06-25 10:00 | PC.NURSE ---
pt came in due to sob and increased weakness and malaise after radiation therapy yesterday. pt has hx of lung ca. pt is on 2lnc all the time but today he was only sating 77% when ems arrived so they placed him on cpap and increased o2 and wob. rt is at bedside for placement of bipap. pt has increased resp effort, and sob. pt placed on monitor/pulse ox. kuah at bedside for evaluation.
[2024-06-25 10:27] LABS: Lactate (Lactic Acid) 1.7 mMol/L (0.4-2.0)
[2024-06-25 10:37] LABS: Basophils % (Auto) 0 % (0-2.5); Eosinophils % (Auto) 0 % (0-10); Hematocrit 27.8 % (41.0-53.0); Hemoglobin 8.1 g/dL (13.5-16.0); Immature Granulocytes % (Auto) 0 % (0-0); Immature Granulocytes Auto 0.03 Thou/mm3 (0.00-0.00); Lymphocytes # (Auto) 0.5 Thou/mm3 (1.0-4.8); Lymphocytes % (Auto) 7 % (10-50); Mean Corpuscular HGB Conc 29.1 g/dl (31.0-37.0); Mean Corpuscular Hemoglobin 21.1 pg (25.0-35.0); Mean Corpuscular Volume 73 fL (80-100); Monocytes # (Auto) 0.5 Thou/mm3 (0.0-0.8); Monocytes % (Auto) 8 % (0-12); Neutrophils # (Auto) 5.8 Thou/mm3 (1.8-7.7); Neutrophils % (Auto) 85 % (37-80); Nucleated Red Blood Cell % 0 /100 WBC (0); Platelet Count 274 Thou/mm3 (140-440); RDW Standard Deviation 47.6 fL (35.1-43.9); Red Blood Count 3.83 Miln/mm3 (4.50-5.90); White Blood Count 6.8 Thou/mm3 (3.8-10.6)
[2024-06-25 10:54] LABS: INR 1.2 (0.9-1.3); Partial Thromboplastin Time 27.1 Seconds (22.0-36.0)
[2024-06-25 11:01] LABS: B-Type Natriuretic Peptide 437 pg/mL (0-100)
[2024-06-25 11:12] LABS: Alanine Aminotransferase < 7 U/L (10-49); Albumin, Serum 3.3 gm/dL (3.4-4.8); Albumin/Globulin Ratio 1.1 (1.2-2.2); Alkaline Phosphatase 90 U/L (46-116); Anion Gap 9 (7-16); Aspartate Amino Transferase < 8 U/L (0-34); BUN/Creatinine Ratio 47 Ratio (12-20); Bilirubin,Total 0.3 mg/dL (0.3-1.2); Blood Urea Nitrogen 33 mg/dL (9-23); Calcium 9.2 mg/dL (8.3-10.6); Calcium (Corrected) 9.8 mg/dL (8.5-10.1); Carbon Dioxide 29.3 mMol/L (20.0-31.0); Chloride 98 mMol/L (98-107); Creatinine (Component) 0.7 mg/dL (0.6-1.3); Estimated Creatinine Clearance 66.3 mL/min (>60); Globulin 2.9 gm/dL (2.3-3.5); Glucose 94 mg/dL (74-106); Osmolality,Calculated 279 (275-295); Potassium 4.5 mMol/L (3.4-5.1); Procalcitonin 0.18 ng/ml (0.0-0.49); Sodium 136 mMol/L (136-145); Total Protein 6.2 gm/dL (5.7-8.2); eGFR > 60 See Note
[2024-06-25] MEDS: ALBUTEROL/IPRATROPIUM (Duoneb) RT SOL 3 ML NEBU INH (11:24)
--- NOTE | 2024-06-25 12:04 | XR_ITS ---
Examination: Ultrasound right hemithorax Ultrasound left hemithorax Exam date and time: June 25, 2024 1324 hours INDICATIONS: Difficulty breathing shortness of breath today, CT chest today positive for pulmonary artery emboli mainly right pulmonary artery and right lower lobe pulmonary artery branches TECHNIQUE AND FINDINGS: Grayscale sonographic images hemithoraces No left pleural fluid Partially solid mild right pleural fluid not amenable to safe thoracentesis IMPRESSION: Partially solid right pleural fluid not amenable to safe thoracentesis
--- NOTE | 2024-06-25 12:14 | PC.CC ---
Leia PISANO was contacted by Felicia with [facility] who reports the patient was referred to them by Dr. Kay for consideration of services. Per Felicia, she has been in contact with the family. Felicia will continue to follow-up with the family.
[2024-06-25] MEDS: predniSONE 20 MG TABLET 60 MG PO (12:32)
[2024-06-25 12:36] LABS: LDH (Lactate Dehydrogenase) 195 U/L (120-246)
[2024-06-25] MEDS: HEPARIN SOD INJ 5000 UNIT/ML VIAL 3200 UNIT IV ×2 (13:04→18:04)
[2024-06-25] MEDS: Heparin/D5w 25K 250 ML Ivpb 25,000 UNIT/250 ML BAG 6.368 UNIT IV (13:09)
--- NOTE | 2024-06-25 13:19 | ECHO_ITS ---
Transthoracic Echo Report Ht (in): 67 Wt (lb): 117 Exam Location: Echo Lab Status: Preadmit Order Make Up Clerk: MARIYA Dyson^^^^ Indications: Procedure Performed: BP: 156 / 74 HR: 76 Technical Quality: Technically difficult study MEASUREMENTS (Male / Female) Normal Values 2D ECHO LV Diastolic Diameter PLAX 5.2 cm 4.2 - 5.9 / 3.9 - 5.3 cm LV Systolic Diameter PLAX 3.8 cm IVS Diastolic Thickness 0.9 cm 0.6 - 1.0 / 0.6 - 0.9 cm LVPW Diastolic Thickness 0.8 cm 0.6 - 1.0 / 0.6 - 0.9 cm LV Relative Wall Thickness 0.3 LVOT Diameter 1.3 cm Aortic Root Diameter 3.3 cm LA Systolic Diameter LX 3.6 cm 3.0 - 4.0 / 2.7 - 3.8 cm LV Ejection Fraction MOD 4C 57.9 % LV Cardiac Index MOD 4C 4109.7 cm?/min?m? LV Ejection Fraction 4C AL 61.2 % LV Cardiac Index 4C AL 4539.5 cm?/min?m? DOPPLER AV Peak Velocity 147.0 cm/s AV Peak Gradient 8.6 mmHg AV Mean Gradient 5.0 mmHg AV Velocity Time Integral 43.5 cm AI Peak Velocity 291.0 cm/s AI Peak Gradient 33.9 mmHg AI Pressure Half Time 516.0 ms LVOT Peak Velocity 72.4 cm/s LVOT Peak Gradient 2.1 mmHg LVOT Velocity Time Integral 18.3 cm LVOT Cardiac Index 1173.0 cm?/min?m? AV Area Cont Eq vti 0.6 cm? AV Area Cont Eq pk 0.7 cm? MV Area PHT 5.4 cm? Mitral E Point Velocity 64.9 cm/s Mitral A Point Velocity 94.6 cm/s Mitral E to A Ratio 0.7 LV E' Lateral Velocity 7.1 cm/s Mitral E to LV E' Lateral Ratio 9.1 LV E' Septal Velocity 7.3 cm/s Mitral E to LV E' Septal Ratio 8.9 TR Peak Velocity 164.0 cm/s TR Peak Gradient 10.8 mmHg PV Peak Velocity 118.0 cm/s PV Peak Gradient 5.6 mmHg RVOT Peak Velocity 73.9 cm/s FINDINGS Left Ventricle The left ventricular ejection fraction is borderline decreased, estimated at 50-55%. There is grade I diastolic dysfunction of the left ventricle (impaired relaxation pattern). Regional wall motion abnormalities are present. Basal. Right Ventricle The right ventricle is normal in size and systolic function. The estimated right ventricular systolic pressure, 20 mmHg. Left Atrium The left atrium is normal by two-dimensional, color flow and Doppler imaging with no structural abnormalities, no thrombus formation present. Right Atrium The right atrium is normal by two-dimensional imaging, color flow and Doppler imaging with no structural abnormalities, no thrombus formation present. Atrial Septum The interatrial septum appears normal with no evidence of a shunt. Aorta The aorta is normal by two-dimensional, color flow and Doppler interrogation. Mitral Valve Mild mitral regurgitation. Mild thickening of the mitral valve leaflets. Mild mitral annular calcification. Aortic Valve Mild thickening of the aortic valve leaflets. Aortic valve sclerosis. Calcification of the right coronary cusp. Trace to mild aortic valve regurgitation. Tricuspid Valve There is mild tricuspid valve regurgitation. Pulmonic Valve Trivial pulmonic valve regurgitation. Vessels The pulmonary artery appears normal. The inferior vena cava pulmonary and hepatic veins appear normal. Pericardium The pericardium is normal by two-dimensional imaging. There is no significant pericardial effusion. Other Findings Pleural effusion CONCLUSIONS Indication: Shortness of breath Normal LV function with an EF of around 55 to 60%. Grade 1 diastolic dysfunction. Normal LV size. Normal RV size and function. Estimated RVSP 25 mmHg. Mild TR Moderate aortic valve sclerosis without any evidence of stenosis with moderate calcification. Trace to mild AI Mild to moderate MAC and thickening of the mitral leaflets. Mild MR. No pericardial effusion but pleural effusion noted. Redd Preciado (Electronically Signed) Final Date: 26 June 2024 03:54
--- NOTE | 2024-06-25 13:48 | PC.NURSE ---
us at bedside for echo
--- NOTE | 2024-06-25 15:10 | PD.ADDHP ---
Addendum History & Physical Addendum Date of report being addended: 06/25/24 Narrative: Attending's attestation: I reviewed labs, imaging, EKG, home medications and prior available records. Face to face evaluation was performed by me. I have personally examined the patient and discussed assessment and plan with the IM team. I reviewed the resident note and agree with the plan with exceptions as below. 78-year-old male with history of lung cancer on radiation therapy, and COPD on 2 L home oxygen, who presented with a chief complaint of shortness of breath and productive cough. He was found to have acute hypoxic respiratory failure in the setting of acute PE, influenza A, right pleural effusion, and possible right lower lobe pneumonia. Acute on chronic hypoxic respiratory failure Acute right lower lobe PE Possible pulmonary infarction of the right lower lobe Right sided pleural effusion Possible right-sided pneumonia, lower lobe Influenza A COPD without exacerbation Parkinson's disease Stage III lung cancer on radiation therapy Plan: Started the patient on heparin drip Ordered echocardiogram Consulted cardiology Start IV ceftriaxone/azithromycin Obtain pleurocentesis and send pleural fluid for analysis: Include LDH and Gram stain/culture Continue DuoNebs as needed Continue home carbidopa/levodopa Outpatient follow-up with oncology
--- NOTE | 2024-06-25 15:57 | PD.RESHP ---
Documentation for date of: 06/25/24 HPI History of Present Illness Chief complaint: SOB History of present illness: Gato Haile is 78 yr male with PMH of BPH, GERD, Parkinson's, diabetes mellitus, depression, stage III lung cancer undergoing radiation, 2 L oxygen use at baseline, COPD who presented to ED today from home after experiencing a drop in his oxygenation status. Most of the history was obtained from chart review as patient is poor historian. He was having shortness of breath that started yesterday morning and was started on CPAP machine in the ED after O2 saturation was 77%. He was weaned to nasal cannula. Now saturating adequately. Patient stated that he lives at home with family who helps him with daily activities. Normally walks very small distances mostly wheelchair-bound. He denies any pain at this time. In the ED, vitals were stable patient was saturating at 97% on 5 L NC. Labs significant for microcytic anemia Hb 8.1, MCV 73. All other electrolytes unremarkable. BNP elevated 437. CTA positive for PE in the distal branch of the main pulmonary artery. Chest x-ray showed right lung pneumonia, right sided pleural fluid. Radiology was contacted for possible pleurocentesis. However further exam by the radiologist showed that the effusion is mostly solid and not safe for drainage at this point. Public Health Training Assistant Dr. Preciado was consulted as well for recommendations in management of PE. Echo was ordered which did not show any right-sided heart strain at this time. No indication for thrombectomy. Patient was started on heparin drip. He tested positive for influenza A. Will admit patient for management of AHRF secondary to acute PE versus pneumonia and treatment for flu. PMHx: Hypertension, COPD, diabetes, lung mass, Parkinson's SX Hx: Hernia surgery Social Hx: Former smoker quit in 2002, social drinker, denies illicit drug use FHx: Unknown Allergies: NKDA Medications: Albuterol inhaler, aspirin 81 mg, carbidopa levodopa, 5 mg donepezil daily, 5 mg finasteride, 750 mg metformin, metoprolol succinate 100 mg, omeprazole 40 mg daily, paroxetine 40 mg daily, simvastatin 60 mg daily Review of Systems Constitutional Constitutional: Reports system reviewed and no additional complaints, except as documented Exam Vital Signs Temp Pulse Resp BP Pulse Ox O2 Del Method O2 Flow Rate 98.7 F 75 28 H 153/73 H 100 Nasal Cannula 5 02/21/25 14:13 06/25/24 14:13 06/25/24 14:13 06/25/24 14:13 06/25/24 14:13 06/25/24 14:13 06/25/24 14:13 FiO2 35 06/25/24 11:27 Narrative Exam General: No acute distress, difficult to understand, sleeping HEENT: NCAT, No JVD noted. Mucosa moist. Pupils are equal and reactive to light bilaterally Cardiovascular: Normal S1 and S2. Regular rate and rhythm. Respiratory: Wheezing auscultated, no crackles Abdomen: Soft, nontender, not distended, normal bowel sounds. Skin: Warm to touch, dry, bruising throughout UE, tattos Musculoskeletal: No gross injuries. Able to move all 4 extremities. No pitting edema Neuro: Alert and oriented x3. No focal neuro deficits. Psych: Normal affect and mood Results: Labs 06/30/24 04:59 06/30/24 04:59 Labs: Short CBC 06/25/24 Range/Units 10:19 WBC 6.8 (3.8-10.6) Thou/mm3 Hgb 8.1 L (13.5-16.0) g/dL Hct 27.8 L (41.0-53.0) % Plt Count 274 (140-440) Thou/mm3 BMP 06/25/24 10:19 Sodium 136 Potassium 4.5 Chloride 98 Carbon Dioxide 29.3 BUN 33 H Creatinine 0.7 Glucose 94 Calcium 9.2 Liver Function 06/25/24 Range/Units 10:19 Total Bilirubin 0.3 (0.3-1.2) mg/dL AST < 8 (0-34) U/L ALT < 7 L (10-49) U/L Alkaline Phosphatase 90 (46-116) U/L Albumin 3.3 L (3.4-4.8) gm/dL Quality Measures Quality Measures none Advance care planning discussed with:: patient Medications Home Medications and Allergies Home Medications ?Medication ?Instructions ?Recorded ?Confirmed ?Type cholecalciferol (vitamin D3) 10 400 mg PO DAILY SUPPLEMENT ##0 03/29/13 06/26/24 History mcg (400 unit) tablet (Vitamin D3) finasteride 5 mg tablet 5 mg PO DAILY ##0 03/29/13 06/26/24 History omeprazole 40 mg capsule,delayed 40 mg PO QDAY 01/23/18 06/26/24 History release albuterol sulfate 90 mcg/actuation 2 puff inhalation Q4H PRN sob 10/08/21 06/26/24 History aerosol inhaler aspirin 81 mg tablet,delayed 81 mg PO QDAY 10/08/21 06/26/24 History release carbidopa ER 50 mg-levodopa 200 mg 1 tab PO HS 10/08/21 06/26/24 History tablet,extended release cetirizine 10 mg tablet 10 mg PO QDAY PRN allergy symptoms 10/08/21 06/26/24 History diclofenac sodium 0.1 % eye drops 1 drp ophthalmic (eye) BID 10/08/21 06/26/24 History fluticasone 250 mcg-salmeterol 50 1 inh inhalation BID 10/08/21 09/13/22 History mcg/dose blistr powdr for inhalation (Wixela Inhub) melatonin 5 mg tablet 5 - 10 mg PO HS 10/08/21 06/26/24 History metformin 750 mg tablet,extended 750 mg PO QDAY 10/08/21 06/26/24 History release 24 hr moxifloxacin 0.5 % eye drops 1 drp ophthalmic (eye) QID 10/08/21 06/26/24 History paroxetine HCl 40 mg tablet 40 mg PO QDAY 10/08/21 06/26/24 History prednisolone acetate 1 % eye 1 drp ophthalmic (eye) QID 10/08/21 06/26/24 History drops,suspension roflumilast 500 mcg tablet 500 mcg PO QDAY 10/08/21 06/26/24 History simvastatin 40 mg tablet 20 mg PO HS 10/08/21 06/26/24 History tiotropium bromide 2.5 2 puff inhalation QDAY 10/08/21 09/13/22 History mcg/actuation mist for inhalation trazodone 100 mg tablet 150 mg PO HS 10/08/21 06/26/24 History docusate sodium 250 mg capsule 250 mg PO QDAY 09/13/22 06/26/24 History isosorbide mononitrate 30 mg 30 mg PO QDAY 09/13/22 06/26/24 History tablet,extended release 24 hr carbidopa 25 mg-levodopa 100 mg 2 tab PO 5 TIMES DAILY 02/18/24 06/26/24 History tablet carbidopa ER 50 mg-levodopa 200 mg 1 tab PO QDAY 02/18/24 06/26/24 History tablet,extended release donepezil 5 mg tablet 5 mg PO QDAY 02/18/24 06/26/24 History fluticasone 500 mcg-salmeterol 50 1 inh inhalation Q12H 02/18/24 06/26/24 History mcg/dose blistr powdr for inhalation (Wixela Inhub) metoprolol succinate 100 mg 50 mg PO QDAY 02/18/24 06/26/24 History tablet,extended release 24 hr benzonatate 100 mg capsule 100 mg PO TID PRN cough 06/26/24 06/26/24 History carboxymethylcellulose sodium 0.5 1 drp ophthalmic (eye) BID PRN dry 06/26/24 06/26/24 History % eye drops in a dropperette eye(s) hydrocodone 5 mg-acetaminophen 325 1 tab PO Q4H PRN pain 06/26/24 06/26/24 History mg tablet megestrol 40 mg tablet 40 mg PO BID 06/26/24 06/26/24 History ondansetron 4 mg disintegrating 4 mg PO Q8H PRN nausea and vomiting 06/26/24 06/26/24 History tablet Allergies Allergy/AdvReac Type Severity Reaction Status Date / Time No Known Allergies Allergy Verified 06/25/24 09:53 Visit Medications Acetaminophen (Acetaminophen 325 Mg Tablet) 650 mg PO Q6H PRN PRN Reason: Fever >100.3 or pain Stop: 07/25/24 15:24 Albuterol/Ipratropium (Albuterol/Ipratropium (Duoneb) Rt Lianna 3 Ml Nebu) 3 ml INH Q6HRRT PRN PRN Reason: wheezing Stop: 07/25/24 18:59 Ferrous Sulfate (Ferrous Sulf 325 Mg Tablet) 325 mg PO QOD BETTYE Stop: 07/25/24 15:44 Heparin Sodium/Dextrose (Heparin In D5w Ivpb) 25,000 unit in 250 mls @ 6.368 mls/hr IV .Q24H BETTYE; Protocol Stop: 07/09/24 12:44 Last Admin: 06/25/24 13:09 Dose: 12 units/kg/hr, 6.368 mls/hr Azithromycin 500 mg/ Sodium (Chloride) 250 mls @ 250 mls/hr IV QDAY BETTYE Stop: 07/02/24 15:35 Ceftriaxone Sodium 1,000 mg/ (Sodium Chloride) 50 mls @ 100 mls/hr IV QPM BETTYE Stop: 07/02/24 15:33 Azithromycin 500 mg/ Sodium (Chloride) 250 mls @ 250 mls/hr IV X1 ONE Stop: 06/25/24 16:44 Ondansetron HCl (Ondansetron Inj 2 Mg/Ml Inj 2 Ml) 4 mg IV Q6H PRN; Protocol PRN Reason: NAUSEA OR VOMITING Stop: 07/25/24 15:30 Oseltamivir Phosphate (Oseltamivir 75 Mg Capsule) 75 mg PO BID BETTYE Stop: 06/30/24 15:44 Pantoprazole Sodium (Pantoprazole 40 Mg Tablet) 40 mg PO QDAY BETTYE Stop: 07/26/24 08:59 Sennosides (Senna Tablet) 1 tab PO QDAY PRN; Protocol PRN Reason: constipation Stop: 07/25/24 15:30 Discontinued Medications Albuterol/Ipratropium (Albuterol/Ipratropium (Duoneb) Rt Lianna 3 Ml Nebu) 3 ml INH X1 ONE Stop: 06/25/24 11:03 Last Admin: 06/25/24 11:24 Dose: 3 ml Heparin Sodium (Porcine) (Heparin Sod Inj 5000 Unit/Ml Vial) 3,200 unit 60 unit/kg (3200 unit) IV X1 ONE; Protocol Stop: 06/25/24 12:43 Last Admin: 06/25/24 13:04 Dose: 3,200 unit Ceftriaxone Sodium 1,000 mg/ (Sodium Chloride) 50 mls @ 100 mls/hr IV QDAY BETTYE Stop: 07/02/24 15:33 Prednisone (Prednisone 20 Mg Tablet) 60 mg PO X1 ONE Stop: 06/25/24 10:59 Last Admin: 06/25/24 12:32 Dose: 60 mg Assessment & Plan Plan Gato Haile is 78 yr male with PMH of BPH, GERD, Parkinson's, diabetes mellitus, depression, stage III lung cancer undergoing radiation, 2 L oxygen use at baseline, COPD who presented to ED today from home after experiencing a drop in his oxygenation status. Most of the history was obtained from chart review as patient is poor historian. Will admit patient for management of AHRF secondary to acute PE versus pneumonia and treatment for flu. #Acute on chronic hypoxic respiratory failure 2/2 #Acute right lower lobe pulmonary embolism #Pneumonia #Right pleural effusion Viral vs. community-acquired Patient uses 2 L oxygen at home at baseline. He has history of COPD due to extensive smoking history. Was started on CPAP after desaturating. Now on nasal cannula 5 L at 98%. Influenza A positive. Chest x-ray showed right lung pneumonia, right sided pleural fluid. CTA positive for PE in the distal branch of the main pulmonary artery. Cardiology Dr. Preciado consulted for possible thrombectomy. Not a candidate at this time. -Continue heparin drip and monitor daily H&H ? Ceftriaxone 1 g daily for 5 days ? Azithromycin 500 mg daily for 5 days -Not a candidate for pleurocentesis as the effusion is solid ?Hold diuresis ? No fluids indicated -echo pending #Influenza A positive ? Tamiflu 75 mg p.o. daily x 5 days #Hx microcytic anemia Blood loss anemia vs side effect of radiation therapy vs poor oral intake vs medication side effect Hb 8.1, MCV 73 on admission ? Follow-up with iron panel #Hx stage III lung cancer Extensive smoking history. Undergoing radiation therapy. ? Follow-up with oncology outpatient #Hx Parkinsons ?Carbidopa levodopa 50?200 mg daily -Donepezil 5 mg daily Med rec still pending #Hx COPD ? Continue DuoNebs every 4 HR as needed ? Oxygen as needed #Hx GERD #Hx BPH #Hx hypertension ? Finasteride 5 mg daily ? Omeprazole 40 mg daily at home. Will start pantoprazole 40 mg daily here ? Metoprolol 100 mg daily Health maintenance: Dispo: tele for tx flu, pneumonia, PE DVT prophylaxis: heparin drip CODE STATUS: Full code Diet: regluar The patient's management plan was discussed with my attending physician Dr. Dalton. Esha Roberts, PGY-1 Attending Provider Attestation/Addendum I reviewed labs, imaging, EKG, home medications and prior available records. Face to face evaluation was performed by me. I have personally examined the patient and discussed assessment and plan with the IM team. I reviewed the resident note and agree with the plan with exceptions as below. 78-year-old male with history of lung cancer on radiation therapy, and COPD on 2 L home oxygen, who presented with a chief complaint of shortness of breath and productive cough. He was found to have acute hypoxic respiratory failure in the setting of acute PE, influenza A, right pleural effusion, and possible right lower lobe pneumonia. Acute on chronic hypoxic respiratory failure Acute right lower lobe PE Possible pulmonary infarction of the right lower lobe Right sided pleural effusion Possible right-sided pneumonia, lower lobe Influenza A COPD without exacerbation Parkinson's disease Stage III lung cancer on radiation therapy Plan: Started the patient on heparin drip Ordered echocardiogram Consulted cardiology Start IV ceftriaxone/azithromycin Obtain pleurocentesis and send pleural fluid for analysis: Include LDH and Gram stain/culture Continue DuoNebs as needed Continue home carbidopa/levodopa Outpatient follow-up with oncology
--- NOTE | 2024-06-25 16:11 | PD.RESCONSUL ---
HPI Data of Consult Requesting Physician: Dudley Dalton MD Admitting Provider: Dudley Dalton MD Attending Provider: Dudley Dalton MD Primary Care Provider: Sundar Arcos PA-C Consult Narrative History of present illness: Mr. Haile is a 78 year old male with past medical history significant for Parkinson's, hypertension, hyperlipidemia, uia-mirkcda-limbrfdky type 2 diabetes, COPD on 2L home O2 and lung cancer (patient's initial diagnosis was 6 months ago and he is undergoing radiation therapy for the last 2 weeks) presented to the ED complaining of lethargy, shortness of breath and low oxygen saturations at home. All of history is taken from at bedside. This morning patient woke up and was hallucinating and was seeing bugs on the wall, was feeling very lethargic fatigue and could not move at all patient was not able to stand up feeling weak and he Wanting to lay down. Patient also experiencing shortness of breath, stated although she did not check his oxygen saturation but it appear like he was having low oxygen saturations and he was almost passing out. Patient denied any chest pain pressure or palpitations. Although patient was feeling shortness of breath likely because of feeling fatigued and low on oxygen he denied orthopnea or PND. Patient also stated that he started radiation therapy 2 weeks ago and has been having a severe left occipital headache for the past 3 days which was not going away. Patient also stated that he feels nausea all the time but denies any episodes of vomiting, diarrhea, melena or hematochezia. ED course: Vitals-in the ED initial blood pressure is 150/65, pulse 70, respirations 24 and patient is on 5 L oxygen via nasal cannula Labs- Hemoglobin 8.1, hematocrit 27.8, MCV 73, MCH 21, BUN 33, creatinine 0.7, GFR >60, BNP 437 Images-chest CTA Positive for pulmonary artery emboli in the distal right main pulmonary artery right lower lobe pulmonary artery branches. COPD, Pneumonia versus infarction right base with moderate right pleural fluid. CXR- Significant right lung pneumonia, mild left base pneumonia, Moderate right pleural fluid In the ED IR pleurocenthesis is ordered and per IR the pleural effusions on CXR are solid and not safe for drainage Echo done on 09/13/22 Normal LV size and function. Estimated EF 55-60% Normal RV size and function Tace mitral, aortic and tricupid regurgitation. Mild aortic valve sclerosis PMH: Parkinson's, hypertension, hyperlipidemia, qpz-xbvizfn-hgfkwcmsl type 2 diabetes, COPD PSH: Umbilical hernia repair surgery SH: Smoked 2 packs per day from 1962 -2002, pt has a 5 year Hx of drinking 6 pack of beer daily and quit 2 years ago), denies illicit drug use. 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 FH: Dad and mom both had heart disease but is unsure what exactly. Pt. has 2 healthy daughters Allergies: NKDA Medications: Albuterol inhaler, aspirin 81 mg, carbidopa levodopa, 5 mg donepezil daily, 5 mg finasteride, 750 mg metformin, metoprolol succinate 100 mg, omeprazole 40 mg daily, paroxetine 40 mg daily, simvastatin 60 mg daily cc:: cc: Dudley Dalton MD Review of Systems Review of Systems Systems Reviewed: All systems reviewed, normal except as documented Exam Vital Signs Temp Pulse Resp BP Pulse Ox O2 Del Method O2 Flow Rate 98.7 F 76 27 H 145/55 H 100 Nasal Cannula 5 06/25/24 14:13 06/25/24 16:00 06/25/24 16:00 06/25/24 16:00 06/25/24 16:00 06/25/24 16:00 06/25/24 16:00 FiO2 35 06/25/24 11:27 Narrative Exam GENERAL: A&Ox3 pale and lethargic appearing elderly male, Awake, Not in acute distress NEURO: no focal neurological deficits HEENT: Atraumatic, Normocephalic. mucous membranes moist. Eyes open, symmetrical, & clear HEART: Normal Heart Sounds LUNGS: no wheezing or crackles, decreased breath sounds at the base of lungs ABDOMEN: soft, non-distended, non-tender, bowel sounds heard, no guarding or rebound tenderness SKIN: No Rash or ecchymoses EXTREMITIES: No edema, tenderness, able to move all 4 extremities, pedal pulses palpated, pill rolling tremor noted bilaterally in hands Results Labs 06/28/24 14:56 06/28/24 05:38 Labs: Short CBC 06/25/24 Range/Units 10:19 WBC 6.8 (3.8-10.6) Thou/mm3 Hgb 8.1 L (13.5-16.0) g/dL Hct 27.8 L (41.0-53.0) % Plt Count 274 (140-440) Thou/mm3 BMP 06/25/24 10:19 Sodium 136 Potassium 4.5 Chloride 98 Carbon Dioxide 29.3 BUN 33 H Creatinine 0.7 Glucose 94 Calcium 9.2 Liver Function 06/25/24 Range/Units 10:19 Total Bilirubin 0.3 (0.3-1.2) mg/dL AST < 8 (0-34) U/L ALT < 7 L (10-49) U/L Alkaline Phosphatase 90 (46-116) U/L Albumin 3.3 L (3.4-4.8) gm/dL Quality Measures Quality Measures none Advance care planning discussed with:: patient Medications Home Medications and Allergies Home Medications ?Medication ?Instructions ?Recorded ?Confirmed ?Type cholecalciferol (vitamin D3) 10 400 mg PO DAILY SUPPLEMENT ##0 03/29/13 06/26/24 History mcg (400 unit) tablet (Vitamin D3) finasteride 5 mg tablet 5 mg PO DAILY ##0 03/29/13 06/26/24 History omeprazole 40 mg capsule,delayed 40 mg PO QDAY 01/23/18 06/26/24 History release albuterol sulfate 90 mcg/actuation 2 puff inhalation Q4H PRN sob 10/08/21 06/26/24 History aerosol inhaler aspirin 81 mg tablet,delayed 81 mg PO QDAY 10/08/21 06/26/24 History release carbidopa ER 50 mg-levodopa 200 mg 1 tab PO HS 10/08/21 06/26/24 History tablet,extended release cetirizine 10 mg tablet 10 mg PO QDAY PRN allergy symptoms 10/08/21 06/26/24 History diclofenac sodium 0.1 % eye drops 1 drp ophthalmic (eye) BID 10/08/21 06/26/24 History fluticasone 250 mcg-salmeterol 50 1 inh inhalation BID 10/08/21 09/13/22 History mcg/dose blistr powdr for inhalation (Wixela Inhub) melatonin 5 mg tablet 5 - 10 mg PO HS 10/08/21 06/26/24 History metformin 750 mg tablet,extended 750 mg PO QDAY 10/08/21 06/26/24 History release 24 hr moxifloxacin 0.5 % eye drops 1 drp ophthalmic (eye) QID 10/08/21 06/26/24 History paroxetine HCl 40 mg tablet 40 mg PO QDAY 10/08/21 06/26/24 History prednisolone acetate 1 % eye 1 drp ophthalmic (eye) QID 10/08/21 06/26/24 History drops,suspension roflumilast 500 mcg tablet 500 mcg PO QDAY 10/08/21 06/26/24 History simvastatin 40 mg tablet 20 mg PO HS 10/08/21 06/26/24 History tiotropium bromide 2.5 2 puff inhalation QDAY 10/08/21 09/13/22 History mcg/actuation mist for inhalation trazodone 100 mg tablet 150 mg PO HS 10/08/21 06/26/24 History docusate sodium 250 mg capsule 250 mg PO QDAY 09/13/22 06/26/24 History isosorbide mononitrate 30 mg 30 mg PO QDAY 09/13/22 06/26/24 History tablet,extended release 24 hr carbidopa 25 mg-levodopa 100 mg 2 tab PO 5 TIMES DAILY 02/18/24 06/26/24 History tablet carbidopa ER 50 mg-levodopa 200 mg 1 tab PO QDAY 02/18/24 06/26/24 History tablet,extended release donepezil 5 mg tablet 5 mg PO QDAY 02/18/24 06/26/24 History fluticasone 500 mcg-salmeterol 50 1 inh inhalation Q12H 02/18/24 06/26/24 History mcg/dose blistr powdr for inhalation (Wixela Inhub) metoprolol succinate 100 mg 50 mg PO QDAY 02/18/24 06/26/24 History tablet,extended release 24 hr benzonatate 100 mg capsule 100 mg PO TID PRN cough 06/26/24 06/26/24 History carboxymethylcellulose sodium 0.5 1 drp ophthalmic (eye) BID PRN dry 06/26/24 06/26/24 History % eye drops in a dropperette eye(s) hydrocodone 5 mg-acetaminophen 325 1 tab PO Q4H PRN pain 06/26/24 06/26/24 History mg tablet megestrol 40 mg tablet 40 mg PO BID 06/26/24 06/26/24 History ondansetron 4 mg disintegrating 4 mg PO Q8H PRN nausea and vomiting 06/26/24 06/26/24 History tablet Allergies Allergy/AdvReac Type Severity Reaction Status Date / Time No Known Allergies Allergy Verified 06/25/24 09:53 Visit Medications Acetaminophen (Acetaminophen 325 Mg Tablet) 650 mg PO Q6H PRN PRN Reason: Fever >100.3 or pain Stop: 07/25/24 15:24 Albuterol/Ipratropium (Albuterol/Ipratropium (Duoneb) Rt Lianna 3 Ml Nebu) 3 ml INH Q6HRRT PRN PRN Reason: wheezing Stop: 07/25/24 18:59 Ferrous Sulfate (Ferrous Sulf 325 Mg Tablet) 325 mg PO QOD BETTYE Stop: 07/25/24 15:44 Heparin Sodium/Dextrose (Heparin In D5w Ivpb) 25,000 unit in 250 mls @ 6.368 mls/hr IV .Q24H BETTYE; Protocol Stop: 07/09/24 12:44 Last Admin: 06/25/24 13:09 Dose: 12 units/kg/hr, 6.368 mls/hr Azithromycin 500 mg/ Sodium (Chloride) 250 mls @ 250 mls/hr IV QDAY BETTYE Stop: 07/02/24 15:35 Ceftriaxone Sodium 1,000 mg/ (Sodium Chloride) 50 mls @ 100 mls/hr IV QPM BETTYE Stop: 07/02/24 15:33 Azithromycin 500 mg/ Sodium (Chloride) 250 mls @ 250 mls/hr IV X1 ONE Stop: 06/25/24 16:44 Ondansetron HCl (Ondansetron Inj 2 Mg/Ml Inj 2 Ml) 4 mg IV Q6H PRN; Protocol PRN Reason: NAUSEA OR VOMITING Stop: 07/25/24 15:30 Oseltamivir Phosphate (Oseltamivir 75 Mg Capsule) 75 mg PO BID BETTYE Stop: 06/30/24 15:44 Pantoprazole Sodium (Pantoprazole 40 Mg Tablet) 40 mg PO QDAY BETTYE Stop: 07/26/24 08:59 Sennosides (Senna Tablet) 1 tab PO QDAY PRN; Protocol PRN Reason: constipation Stop: 07/25/24 15:30 Discontinued Medications Albuterol/Ipratropium (Albuterol/Ipratropium (Duoneb) Rt Lianna 3 Ml Nebu) 3 ml INH X1 ONE Stop: 06/25/24 11:03 Last Admin: 06/25/24 11:24 Dose: 3 ml Heparin Sodium (Porcine) (Heparin Sod Inj 5000 Unit/Ml Vial) 3,200 unit 60 unit/kg (3200 unit) IV X1 ONE; Protocol Stop: 06/25/24 12:43 Last Admin: 06/25/24 13:04 Dose: 3,200 unit Ceftriaxone Sodium 1,000 mg/ (Sodium Chloride) 50 mls @ 100 mls/hr IV QDAY BETTYE Stop: 07/02/24 15:33 Prednisone (Prednisone 20 Mg Tablet) 60 mg PO X1 ONE Stop: 06/25/24 10:59 Last Admin: 06/25/24 12:32 Dose: 60 mg Assessment & Plan Plan Mr. Haile is a 78 year old male with past medical history significant for Parkinson's, hypertension, hyperlipidemia, wvj-jlvlegz-iqitcbzlt type 2 diabetes, COPD on 2L home O2 and lung cancer (patient's initial diagnosis was 6 months ago and he is undergoing radiation therapy for the last 2 weeks) presented to the ED complaining of lethargy, shortness of breath and low oxygen saturations at home. Cardiology is consulted for thombectomy of right main pulmonary artery #Acute on chronic hypoxic respiratory failure 06/06 #Right lung Pneumonia #Influenza A positive #? right pleural effusion in the setting of #COPD -Patient is complaining of low oxygen saturation, shortness of breath and weakness -Pt has long standing history of COPD and is on 2L O2 at home -Although CRX reading indicates pleural effusions on the right side, IR during drainage identified it mostly solid material -Influenza A positive -Pt is on supplemental oxygen, scheduled duonebs, tamiflu and antibiotics #Acute right lower lobe pulmonary embolism -CTA chest CTA Positive for pulmonary artery emboli in the distal right main pulmonary artery right lower lobe pulmonary artery branches. -In the ED, Pt is started on heparin drip -cardiology is consulted for thrombectomy however, upon looking at images there is minimal to no evidence of emboli. -Echo ordered to asses for right ventricular pressure overload and/or dysfunction to help identify evidence of PE #Microcytic Anemia -Pt denies hematemesis, melena or hematochezia -There is no evidence of active bleeding, this is likely secondary to poor oral intake in the setting of malignancy and radiation -on admission Hb 8.1, MCV 73 -Iron panel is pending -recommend IV iron infusions #Stage III lung cancer -Pt is diagnosed aproximately 6 months ago and is undergoing radiation therapy at [facility] -Pt has 80 packs/ year smoking history and quit in 2002 #Primary hypertension -Recommend starting pt on ACEI #BPH -resume home finesteride #GERD -Pt is on pantropazole #Hx of Parkinsons ?Pt home meds include Carbidopa levodopa 50?200 mg daily, Donepezil 5 mg daily -resume home meds Assessment and plan discussed with my attending physician Dr. Ozzy Rodriguez (PGY-1)- Internal medicine resident Attending Provider Attestation/Addendum I have personally seen and examined the patient separately on the above date of service and discussed the plan of care with the resident. I reviewed the resident Dr. Kip Rodriguez consultation progress note and agree with the resident findings and plan in the note above and have also edited the documentation to reflect my findings and plan. I was consulted by the emergency department given the report of the Pulmonary embolism noted on the CT which was described as positive for pulmonary artery emboli in the distal right main pulmonary artery, right lower lobe pulmonary artery branches along with COPD, pneumonia versus infection of the right base and moderate right pleural effusion. Reviewed the CTA chest images in detail and there was no evidence of any pulmonary embolism noted in the right main PA and also the right lower lobe pulmonary arteries.There appears to be right lung mass with possible consolidation and some effusion in the right lower lobe area. Unable to visualize any clear PE at this point. His SOB is possibly mutlifactorial and continue to work up the same. Patient was started on heparin drip and recommend to discontinue it if alternative diagnosis noted which could be explain the acute on chronic SOB or respiratory failure and if the echo shows no significant RV strain. Patient is sepsis and primary team continue the workup for pneumonia flu and other infections. Also has severe anemia and recommend primary team to start the workup for the same. Redd Preciado M.D. Interventional Cardiology
[2024-06-25] MEDS: cefTRIAXone 1,000 MG in SODIUM CHLORIDE 0.9% (Popper) 50 ML 100 MG IV (16:20)
[2024-06-25] MEDS: OSELTAMIVIR 75 MG CAPSULE PO (16:20)
[2024-06-25 16:49] LABS: Ferritin 770 ng/mL (10.5-307.3); Total Iron Binding Capacity 191 mcg/dL (250-425)
[2024-06-25] MEDS: AZITHROMYCIN INJ 500 MG in SODIUM CHLORIDE 0.9% 250 ML 250 ML 250 MG IV (16:59)
[2024-06-25] MEDS: ONDANSETRON INJ 2 MG/ML INJ 2 ML 4 MG IV (17:11)
[2024-06-25 17:14] LABS: Partial Thromboplastin Time 22.3 Seconds (22.0-36.0)
--- NOTE | 2024-06-25 17:27 | PC.NURSE ---
pt started getting nauseous so gave zofran ivp.
[2024-06-25 18:34] LABS: Iron 109 mcg/dL (65-175); Percent Iron Saturation 57 % (20-55); Unsaturated Iron Binding 82 (225-295)
[2024-06-26] VITALS (12 sets, daily range): BP systolic 100–147; BP diastolic 57–72; PULSE 71–177; RESP 17–25; TEMP 36.3–37; O2SAT 98–100; BMI 20.2
[2024-06-26] MEDS: HEPARIN SOD INJ 5000 UNIT/ML VIAL 1600 UNIT IV (01:21)
[2024-06-26 06:38] LABS: Basophils % (Auto) 0 % (0-2.5); Eosinophils % (Auto) 0 % (0-10); Immature Granulocytes % (Auto) 0 % (0-0); Immature Granulocytes Auto 0.01 Thou/mm3 (0.00-0.00); Lymphocytes # (Auto) 0.4 Thou/mm3 (1.0-4.8); Lymphocytes % (Auto) 10 % (10-50); Mean Corpuscular HGB Conc 29.6 g/dl (31.0-37.0); Mean Corpuscular Hemoglobin 21.4 pg (25.0-35.0); Mean Corpuscular Volume 72 fL (80-100); Monocytes # (Auto) 0.4 Thou/mm3 (0.0-0.8); Monocytes % (Auto) 10 % (0-12); Neutrophils # (Auto) 3.3 Thou/mm3 (1.8-7.7); Neutrophils % (Auto) 80 % (37-80); Nucleated Red Blood Cell % 0 /100 WBC (0); Platelet Count 207 Thou/mm3 (140-440); RDW Standard Deviation 46.9 fL (35.1-43.9); Red Blood Count 3.59 Miln/mm3 (4.50-5.90); White Blood Count 4.2 Thou/mm3 (3.8-10.6)
[2024-06-26 06:47] LABS: Hemoglobin 7.7 g/dL (13.5-16.0)
[2024-06-26 07:07] LABS: Glucose Estimated Average 126 mg/dL (80-131)
[2024-06-26 07:23] LABS: Alanine Aminotransferase < 7 U/L (10-49); Albumin, Serum 3.2 gm/dL (3.4-4.8); Albumin/Globulin Ratio 1.2 (1.2-2.2); Alkaline Phosphatase 82 U/L (46-116); Anion Gap 8 (7-16); Aspartate Amino Transferase < 8 U/L (0-34); BUN/Creatinine Ratio 48 Ratio (12-20); Bilirubin,Total 0.3 mg/dL (0.3-1.2); Blood Urea Nitrogen 29 mg/dL (9-23); Calcium 8.9 mg/dL (8.3-10.6); Calcium (Corrected) 9.5 mg/dL (8.5-10.1); Chloride 101 mMol/L (98-107); Creatinine (Component) 0.6 mg/dL (0.6-1.3); Globulin 2.6 gm/dL (2.3-3.5); Glucose 80 mg/dL (74-106); Magnesium 1.3 mg/dL (1.6-2.6); Osmolality,Calculated 282 (275-295); Phosphorous 2.9 mg/dL (2.4-5.1); Potassium 4.3 mMol/L (3.4-5.1); Sodium 139 mMol/L (136-145); Total Protein 5.8 gm/dL (5.7-8.2); eGFR > 60 See Note
[2024-06-26] MEDS: PANTOPRAZOLE 40 MG TABLET PO ×2 (08:11→21:09)
[2024-06-26] MEDS: OSELTAMIVIR 75 MG CAPSULE PO ×2 (08:11→21:09)
[2024-06-26 08:21] LABS: COVID-19 Confirmatory PCR Negative (Neg)
[2024-06-26 09:54] LABS: Partial Thromboplastin Time 48.2 Seconds (22.0-36.0)
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
[2024-06-26] MEDS: HEPARIN SOD INJ 5000 UNIT/ML VIAL 1680 UNIT IV (10:57)
--- NOTE | 2024-06-26 10:59 | PC.SS ---
Patient Gato Haile is a 78 year old male admitted for PE. SS met with patient and patients, , Ellie Haile. Patient's reports patient lives at home with her. Patient's spouse, Ellie Haile was identified as the patient's alternate medical surrogate decision maker. Patients reports she provides full assistance with ADL's. Patient has a walker, wheelchair and home oxygen, baseline is 2L of O2. DME vendor is [employer]. Patient's PCP is Dr. Jesus Arcos with [facility]. Pharmacy is through delivered to patient's home through the NH. The discharge plan was discussed, and the patient and patient's would like to return home once medically cleared. Family to assist with transportation home. director of creative services to remain available to address any concerns. D/c plan: home Next of kin: spouse, Ellie Haile
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
[2024-06-26] MEDS: ACETAMINOPHEN 325 MG TABLET 650 MG PO (13:22)
--- NOTE | 2024-06-26 13:26 | XR_ITS ---
Examination: Venous duplex lower extremity sonogram, bilateral. Date and time of exam: June 26, 2024 1354 hrs. Indications: Altered mental status with bilateral leg pain today Technique: Multiple sonographic images of the deep venous system have been obtained. B-mode/2-D grayscale imaging of vascular structures and Doppler spectral analysis (waveforms) and color performed Both legs are examined. Findings: Deep venous systems do not demonstrate abnormal echogenicity. All visualized deep veins exhibit compressibility. All visualized deep veins exhibit augmentation. Impression: Negative for deep vein thrombosis
--- NOTE | 2024-06-26 13:40 | ESPR_ITS ---
<Statement entered by Paulino Kaplan MD - 07/03/24 07:42> I reviewed above note and agree with findings and plans. I have also personally examined the patient with medicine team and went over assessment and plan with medical team including music industry intern and resident physician. Documentation for date of: 06/26/24 Subjective Subjective Interval history: Patient seen and examined at bedside. Overnight patient was started on BiPAP. No major complaints today saying that he is feeling better. Vitals are stable with oxygen requirements at 4 L nasal cannula. Patient saturating at 99%. Denies any coughing, shortness of breath. Per cardiology recommendation, will stop heparin drip as the PE was small, no right heart strain, hemodynamically stable patient. Follow-up with lower extremity ultrasound to rule out DVT. Avoiding other anticoagulants due to patient's low hemoglobin. Hb 7.2 today. FOBT is pending. Repeat hemoglobin this afternoon to watch for trend. will consider consulting GI for possible colonoscopy/EGD to rule out any GI bleed if continues to downtrend/positive FOBT. Exam Vital Signs Temp Pulse Resp BP Pulse Ox O2 Del Method O2 Flow Rate 98.2 F 85 24 H 147/69 H 99 Nasal Cannula 2 06/26/24 08:00 06/26/24 11:43 06/26/24 11:43 06/26/24 08:00 06/26/24 11:43 06/26/24 08:00 06/26/24 11:43 FiO2 35 06/25/24 11:27 Narrative Exam General: Lethargic, elderly male, No acute distress, eating breakfast, improved ability in speech today HEENT: NCAT, No JVD noted. Mucosa moist. Pupils are equal and reactive to light bilaterally Cardiovascular: Normal S1 and S2. Regular rate and rhythm. Respiratory: Wheezing auscultated, no crackles Abdomen: Soft, nontender, not distended, normal bowel sounds. Skin: Warm to touch, dry, bruising throughout UE, tattos Musculoskeletal: No gross injuries. Able to move all 4 extremities. No pitting edema Neuro: Alert and oriented x3. No focal neuro deficits. Tremor bilaterally Psych: Normal affect and mood Objective Labs 06/29/24 04:23 06/29/24 04:23 Labs: Laboratory Results - last 24 hr 06/25/24 06/25/24 06/25/24 10:19 14:25 16:44 WBC RBC Hgb Hct MCV MCH MCHC RDW Std Deviation Plt Count Neut % (Auto) Lymph % (Auto) [place] % (Auto) Eos % (Auto) Baso % (Auto) Neut # (Auto) Lymph # (Auto) [place] # (Auto) Eos # (Auto) Baso # (Auto) Immature Gran # (Auto) Absolute Nucleated RBC Immature Gran % Nucleated RBC % APTT 22.3 Sodium Potassium Chloride Carbon Dioxide Anion Gap BUN Creatinine Estim Creat Clear Calc eGFR BUN/Creatinine Ratio Glucose Estimated Ave Glu mg/dL Hemoglobin A1c Calculated Osmolality Calcium Corrected Calcium Phosphorus Magnesium Iron 109 TIBC 191 L Iron Saturation 57 H Unsat Iron Binding 82 L Ferritin 770 H Total Bilirubin AST ALT Alkaline Phosphatase Total Protein Albumin Globulin Albumin/Globulin Ratio SARS-CoV-2 (PCR) Negative 06/26/24 06/26/24 06/26/24 00:11 05:39 09:15 WBC 4.2 RBC 3.59 L Hgb 7.7 L Hct 26.0 L MCV 72 L MCH 21.4 L MCHC 29.6 L RDW Std Deviation 46.9 H Plt Count 207 D Neut % (Auto) 80 Lymph % (Auto) 10 [place] % (Auto) 10 Eos % (Auto) 0 Baso % (Auto) 0 Neut # (Auto) 3.3 Lymph # (Auto) 0.4 L [place] # (Auto) 0.4 Eos # (Auto) 0.0 Baso # (Auto) 0.0 Immature Gran # (Auto) 0.01 H Absolute Nucleated RBC 0.00 Immature Gran % 0 Nucleated RBC % 0 APTT 45.0 H D 48.2 H Sodium 139 Potassium 4.3 Chloride 101 Carbon Dioxide 30.0 Anion Gap 8 BUN 29 H Creatinine 0.6 Estim Creat Clear Calc 83.0 eGFR > 60 BUN/Creatinine Ratio [address] Glucose [address] Glu mg/dL 126 Hemoglobin A1c 6.0 Calculated Osmolality 282 Calcium 8.9 Corrected Calcium 9.5 Phosphorus 2.9 Magnesium 1.3 L Iron TIBC Iron Saturation Unsat Iron Binding Ferritin Total Bilirubin 0.3 AST < 8 ALT < 7 L Alkaline Phosphatase 82 Total Protein 5.8 Albumin 3.2 L Globulin 2.6 Albumin/Globulin Ratio 1.2 SARS-CoV-2 (PCR) Quality Measures Quality Measures none Advance care planning discussed with:: patient Assessment & Plan Assessment Current Active Medications: Generic Name Dose Route Start Last Admin Trade Name Freq PRN Reason Stop Dose Admin Acetaminophen 650 mg 06/25/24 15:25 06/26/24 13:22 Acetaminophen 325 Mg Tablet PO 07/25/24 15:24 650 mg Q6H PRN Administration Fever >100.3 or pain Albuterol/Ipratropium 3 ml 06/25/24 15:39 Albuterol/Ipratropium (Duoneb) Rt Lianna 3 Ml Nebu INH 07/25/24 18:59 Q6HRRT PRN wheezing Dextrose 25 ml 06/26/24 04:15 Dextrose 50%-Water Inj 50 Ml Syringe IV 07/26/24 04:14 Q15MIN PRN BG 50-70 responsive npo pt Dextrose 50 ml 06/26/24 04:15 Dextrose 50%-Water Inj 50 Ml Syringe IV 07/26/24 04:14 Q15MIN PRN BG <50 OR BG <70 & pt unresponsive Ferrous Sulfate 325 mg 06/25/24 15:45 06/25/24 17:06 Ferrous Sulf 325 Mg Tablet PO 07/25/24 15:44 Not Given QOD [facility] Glucagon 1 mg 06/26/24 04:15 Glucagon Inj 1 Mg Vial IM Q15MIN PRN BG <70, and no IV access Azithromycin 500 mg/ Sodium 250 mls @ 250 mls/hr 06/26/24 14:00 Chloride IV 07/30/24 15:35 QDAY@1400 [facility] Ceftriaxone Sodium 1,000 mg/ 50 mls @ 100 mls/hr 06/25/24 15:45 06/25/24 17:05 Sodium Chloride IV 07/02/24 15:33 Infused QPM [facility] Infusion Magnesium Sulfate 4 gm in 50 mls @ 12.5 mls/hr 06/26/24 13:25 Magnesium Sulfate Ivpb IV 06/26/24 17:24 X1 ONE Insulin Human Lispro 0 unit 06/26/24 07:30 06/26/24 10:30 Insulin Lispro (Admelog) 1 Unit/0.01 Ml Unit SC 07/26/24 07:29 Not Given [facility] Protocol Ondansetron HCl 4 mg 06/25/24 15:31 06/25/24 17:11 Ondansetron Inj 2 Mg/Ml Inj 2 Ml IV 07/25/24 15:30 4 mg Q6H PRN Administration NAUSEA OR VOMITING Protocol Oseltamivir Phosphate 75 mg 06/25/24 15:45 06/26/24 08:11 Oseltamivir 75 Mg Capsule PO 06/30/24 15:44 75 mg BID BETTYE Administration Pantoprazole Sodium 40 mg 06/26/24 21:00 Pantoprazole 40 Mg Tablet PO 07/26/24 20:59 BID BETTYE Sennosides 1 tab 06/25/24 15:31 Senna Tablet PO 07/25/24 15:30 QDAY PRN constipation Protocol Plan Gato Haile is 78 yr male with PMH of BPH, GERD, Parkinson's, diabetes mellitus, depression, stage III lung cancer undergoing radiation, 2 L oxygen use at baseline, COPD who presented to ED today from home after experiencing a drop in his oxygenation status. Most of the history was obtained from chart review as patient is poor historian. Will admit patient for management of AHRF secondary to acute PE versus pneumonia and treatment for flu. #Acute on chronic hypoxic respiratory failure / #Pneumonia #Right pleural effusion #Acute right lower lobe pulmonary embolism-ruled out Viral vs. community-acquired Patient uses 2 L oxygen at home at baseline. He has history of COPD due to extensive smoking history. Was started on CPAP after desaturating. Now on nasal cannula 5 L at 98%. Influenza A positive. Chest x-ray showed right lung pneumonia, right sided pleural fluid. CTA positive for PE in the distal branch of the main pulmonary artery Cardiology consulted--no PE noticed on re-read. -stop heparin drip ? Ceftriaxone 1 g daily for 5 days ? Azithromycin 500 mg daily for 5 days -Not a candidate for pleurocentesis as the effusion is solid ?Hold diuresis ? No fluids indicated -echo pending -Ultrasound lower extremity to rule out DVT pending #Influenza A positive ? Tamiflu 75 mg p.o. daily x 5 days #Acute microcytic anemia Ddx: Blood loss anemia, side effect of radiation therapy, poor oral intake, medication side effect Hb 8.1, MCV 73 on admission ?Hold off any oral anticoagulants -Repeat H&H at 2 PM -If downtrending/positive FOBT will consider consulting GI -FOBT pending -Protonix 40 mg daily to 40 mg twice daily #Electrolyte imbalances ? Replete as needed #Hx stage III lung cancer Extensive smoking history. Undergoing radiation therapy. ? Follow-up with oncology outpatient #Hx Parkinsons ?Carbidopa levodopa 50?200 mg daily -Donepezil 5 mg daily Med rec still pending #Hx COPD ? Continue DuoNebs every 4 HR as needed ? Oxygen as needed #Hx GERD #Hx BPH #Hx hypertension ? Finasteride 5 mg daily ? Omeprazole 40 mg daily at home. (40 mg pantoprazole twice daily during hospitalization) ? Metoprolol 100 mg daily--holding for now due to stable BP Health maintenance: Dispo: tele for tx flu, pneumonia, PE DVT prophylaxis:not indicated, hep drip dc'd CODE STATUS: Full code Diet: regluar GI proph: Pantoprazole 40 mg BID The patient's management plan was discussed with my attending physician Dr. Kaplan. Esha Roberts, PGY-1
[2024-06-26] MEDS: AZITHROMYCIN INJ 500 MG in SODIUM CHLORIDE 0.9% 250 ML 250 ML 250 MG IV (14:58)
[2024-06-26 16:00] LABS: Hematocrit 25.1 % (41.0-53.0)
[2024-06-26 16:02] LABS: Hemoglobin 7.4 g/dL (13.5-16.0)
[2024-06-26] MEDS: FINASTERIDE 5 MG TABLET PO (16:05)
--- NOTE | 2024-06-26 16:51 | EKG_ITS ---
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: KANNAN : 1945 Requested By: Mary Dodge Order Number: [id number] Reading MD: Mary Dodge Measurements Intervals [place] Rate: 147 P: [place]: QRS: 63 QRSD: 93 T: 264 QT: 298 QTc: 466 Interpretive Statements ATRIAL FIBRILLATION WITH RAPID VENTRICULAR RESPONSE ST DEVIATION AND MODERATE T-WAVE ABNORMALITY, CONSIDER INFERIOR ISCHEMIA Compared to ECG 06/25/2024 10:12:39 T-wave abnormality now present Possible ischemia now present Supraventricular rhythm no longer present Right-axis deviation no longer present Left ventricular hypertrophy no longer present ST (T wave) deviation no longer present /store/S0/[id number]/[id number].pdf
[2024-06-26] MEDS: Magnesium Sulfate 4 GM Ivpb 4 GM/50 ML BAG IV (17:10)
[2024-06-26] MEDS: SODIUM CHLORIDE 0.9% 1000 ML 1,000 ML 999 ML IV (17:17)
[2024-06-26 17:50] LABS: Basophils % (Auto) 0 % (0-2.5); Eosinophils % (Auto) 0 % (0-10); Hematocrit 25.8 % (41.0-53.0); Immature Granulocytes % (Auto) 0 % (0-0); Immature Granulocytes Auto 0.02 Thou/mm3 (0.00-0.00); Lymphocytes # (Auto) 0.4 Thou/mm3 (1.0-4.8); Lymphocytes % (Auto) 7 % (10-50); Mean Corpuscular HGB Conc 29.1 g/dl (31.0-37.0); Mean Corpuscular Hemoglobin 21.5 pg (25.0-35.0); Mean Corpuscular Volume 74 fL (80-100); Monocytes # (Auto) 0.8 Thou/mm3 (0.0-0.8); Monocytes % (Auto) 12 % (0-12); Neutrophils # (Auto) 5.1 Thou/mm3 (1.8-7.7); Neutrophils % (Auto) 81 % (37-80); Nucleated Red Blood Cell % 0 /100 WBC (0); Platelet Count 213 Thou/mm3 (140-440); RDW Standard Deviation 47.7 fL (35.1-43.9); Red Blood Count 3.49 Miln/mm3 (4.50-5.90); White Blood Count 6.3 Thou/mm3 (3.8-10.6)
[2024-06-26 17:59] LABS: Hemoglobin 7.5 g/dL (13.5-16.0)
[2024-06-26] MEDS: AMIODARONE 150 MG IVPB 150 MG/100 ML BAG 600 MG IV (18:03)
[2024-06-26] MEDS: AMIODARONE 360 MG IVPB 360 MG/200 ML BAG 33.333 MG IV (18:15)
[2024-06-26 18:17] LABS: Albumin, Serum 2.9 gm/dL (3.4-4.8); Alkaline Phosphatase 74 U/L (46-116); Aspartate Amino Transferase < 8 U/L (0-34); Chloride 102 mMol/L (98-107); Potassium 4.1 mMol/L (3.4-5.1); Sodium 139 mMol/L (136-145); Thyroid Stimulating Hormone 1.28 uIU/mL (0.55-4.78)
--- NOTE | 2024-06-26 18:28 | PC.NURSE ---
AYAKA Irizarry at bedside while amiodarone bolus drip is infusing and 2nd bag is hung
[2024-06-26 18:56] LABS: Alanine Aminotransferase < 7 U/L (10-49); Albumin/Globulin Ratio 1.2 (1.2-2.2); Anion Gap 7 (7-16); BUN/Creatinine Ratio 53 Ratio (12-20); Bilirubin,Total 0.3 mg/dL (0.3-1.2); Blood Urea Nitrogen 32 mg/dL (9-23); Calcium 8.6 mg/dL (8.3-10.6); Calcium (Corrected) 9.5 mg/dL (8.5-10.1); Carbon Dioxide 29.7 mMol/L (20.0-31.0); Creatinine (Component) 0.6 mg/dL (0.6-1.3); Globulin 2.5 gm/dL (2.3-3.5); Glucose 86 mg/dL (74-106); Magnesium 1.4 mg/dL (1.6-2.6); Osmolality,Calculated 283 (275-295); Total Protein 5.4 gm/dL (5.7-8.2); eGFR > 60 See Note
[2024-06-26] MEDS: CARBIDOPA/LEVODOPA 25/100 MG TABLET 2 TAB PO (21:08)
[2024-06-26] MEDS: traZODone HCL 50 MG TABLET 150 MG PO (21:09)
[2024-06-26] MEDS: cefTRIAXone 1,000 MG in SODIUM CHLORIDE 0.9% (Popper) 50 ML 100 MG IV (21:09)
[2024-06-26] MEDS: MEGESTROL ACET 20 MG TABLET 40 MG PO (21:09)
[2024-06-27] VITALS (10 sets, daily range): BP systolic 102–132; BP diastolic 60–83; PULSE 65–81; RESP 16–25; TEMP 36.1–36.5; O2SAT 94–100; BMI 21.1
[2024-06-27] MEDS: AMIODARONE 360 MG IVPB 360 MG/200 ML BAG 16.667 MG IV ×2 (00:35→12:21)
[2024-06-27] MEDS: CARBIDOPA/LEVODOPA 25/100 MG TABLET 2 TAB PO ×5 (05:47→21:07)
[2024-06-27 06:23] LABS: INR 1.2 (0.9-1.3); Partial Thromboplastin Time 29.8 Seconds (22.0-36.0); Prothrombin Time 13.1 Seconds (9.0-12.2)
[2024-06-27 06:28] LABS: Basophils % (Auto) 0 % (0-2.5); Eosinophils % (Auto) 0 % (0-10); Immature Granulocytes % (Auto) 0 % (0-0); Immature Granulocytes Auto 0.01 Thou/mm3 (0.00-0.00); Lymphocytes # (Auto) 0.4 Thou/mm3 (1.0-4.8); Mean Corpuscular Volume 74 fL (80-100); Monocytes # (Auto) 0.4 Thou/mm3 (0.0-0.8); Monocytes % (Auto) 12 % (0-12); Neutrophils % (Auto) 76 % (37-80); Nucleated Red Blood Cell % 0 /100 WBC (0)
[2024-06-27 06:39] LABS: Hematocrit 23.8 % (41.0-53.0); Lymphocytes % (Auto) 11 % (10-50); Mean Corpuscular HGB Conc 29.4 g/dl (31.0-37.0); Mean Corpuscular Hemoglobin 21.7 pg (25.0-35.0); Neutrophils # (Auto) 2.5 Thou/mm3 (1.8-7.7); Platelet Count 153 Thou/mm3 (140-440); RDW Standard Deviation 47.7 fL (35.1-43.9); Red Blood Count 3.23 Miln/mm3 (4.50-5.90); White Blood Count 3.3 Thou/mm3 (3.8-10.6)
[2024-06-27 06:42] LABS: Alanine Aminotransferase < 7 U/L (10-49); Albumin, Serum 2.8 gm/dL (3.4-4.8); Albumin/Globulin Ratio 1.3 (1.2-2.2); Alkaline Phosphatase 71 U/L (46-116); Anion Gap 7 (7-16); Aspartate Amino Transferase < 8 U/L (0-34); BUN/Creatinine Ratio 56 Ratio (12-20); Bilirubin,Total 0.2 mg/dL (0.3-1.2); Blood Urea Nitrogen 28 mg/dL (9-23); Calcium 8.1 mg/dL (8.3-10.6); Calcium (Corrected) 9.1 mg/dL (8.5-10.1); Carbon Dioxide 32.5 mMol/L (20.0-31.0); Chloride 102 mMol/L (98-107); Creatinine (Component) 0.5 mg/dL (0.6-1.3); Estimated Creatinine Clearance 103.7 mL/min (>60); Globulin 2.2 gm/dL (2.3-3.5); Glucose 88 mg/dL (74-106); Magnesium 1.8 mg/dL (1.6-2.6); Osmolality,Calculated 285 (275-295); Potassium 3.5 mMol/L (3.4-5.1); Sodium 141 mMol/L (136-145); eGFR > 60 See Note
[2024-06-27] MEDS: OSELTAMIVIR 75 MG CAPSULE PO ×2 (09:07→21:05)
[2024-06-27] MEDS: PANTOPRAZOLE 40 MG TABLET PO ×2 (09:07→21:06)
[2024-06-27] MEDS: FERROUS SULF 325 MG TABLET PO (09:07)
[2024-06-27] MEDS: FINASTERIDE 5 MG TABLET PO (09:07)
[2024-06-27] MEDS: MEGESTROL ACET 20 MG TABLET 40 MG PO ×2 (09:07→21:06)
[2024-06-27] MEDS: Magnesium Sulfate 4 GM Ivpb 4 GM/50 ML BAG IV (09:08)
[2024-06-27] MEDS: POTASSIUM CHLORIDE 10% 20 MEQ/15 ML UDC 40 MEQ PO (09:08)
--- NOTE | 2024-06-27 12:47 | ESPR_ITS ---
<Statement entered by Paulino Kaplan MD - 07/03/24 07:43> I reviewed above note and agree with findings and plans. I have also personally examined the patient with medicine team and went over assessment and plan with medical team including media intern and resident physician. Documentation for date of: 06/27/24 Subjective Subjective Interval history: Patient seen and examined at bedside. 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 Was given 1L of IVF due to low blood pressure. Engine Assembler consulted, recommended amio drip. Patient heart rate improved around 7 pm yesterday. Remains on amio drip. No acute complaints at bedside this morning. Family at bedside. Brief discussion on code status and what that means for patient. Patient and family to discuss amongst themselves if patient wants to remain full code, given his overall chronic health condition. Exam Vital Signs Temp Pulse Resp BP Pulse Ox O2 Del Method O2 Flow Rate 97.6 F 75 24 H 119/63 98 Nasal Cannula 2 06/27/24 12:00 06/27/24 12:29 06/27/24 12:29 06/27/24 12:21 06/27/24 12:29 06/27/24 12:00 06/27/24 12:29 FiO2 35 06/25/24 11:27 Narrative Exam Constitutional: NAD. Awake, alert, elderly male HEENT: NCAT. Vision grossly intact. Respiratory: CTAB bilaterally. Cardiac: RRR. Abdomen: Soft, non-distended, non-tender. MSK: No B/L LE edema. Skin: Warm, dry, intact. Areas of erythema with blisters, some broken some intact with clear yellow fluid over chest. Tattoos noted. Neuro: Motor and sensation grossly intact. Tremor. Psychiatric: Appropriate mood and affect. Objective Labs 06/27/24 05:35 06/27/24 05:35 Labs: Laboratory Results - last 24 hr 06/26/24 06/26/24 06/27/24 15:50 17:25 05:35 WBC 6.3 D 3.3 L D RBC 3.49 L 3.23 L Hgb 7.4 L 7.5 L 7.0 L Hct 25.1 L 25.8 L 23.8 L MCV 74 L 74 L MCH 21.5 L 21.7 L MCHC 29.1 L 29.4 L RDW Std Deviation 47.7 H 47.7 H Plt Count 213 153 D Neut % (Auto) 81 H 76 Lymph % (Auto) 7 L 11 [place] % (Auto) 12 12 Eos % (Auto) 0 0 Baso % (Auto) 0 0 Neut # (Auto) 5.1 2.5 Lymph # (Auto) 0.4 L 0.4 L [place] # (Auto) 0.8 0.4 Eos # (Auto) 0.0 0.0 Baso # (Auto) 0.0 0.0 Immature Gran # (Auto) 0.02 H 0.01 H Absolute Nucleated RBC 0.00 0.00 Immature Gran % 0 0 Nucleated RBC % 0 0 PT 13.1 H INR 1.2 APTT 29.8 D Sodium 139 141 Potassium 4.1 3.5 D Chloride 102 102 Carbon Dioxide 29.7 32.5 H Anion Gap 7 7 BUN 32 H 28 H Creatinine 0.6 0.5 L Estim Creat Clear Calc 83.0 103.7 eGFR > 60 > 60 BUN/Creatinine Ratio 53 H 56 H Glucose 86 88 Calculated Osmolality 283 285 Calcium 8.6 8.1 L Corrected Calcium 9.5 9.1 Magnesium 1.4 L 1.8 Total Bilirubin 0.3 0.2 L AST < 8 < 8 ALT < 7 L < 7 L Alkaline Phosphatase 74 71 Total Protein 5.4 L 5.0 L Albumin 2.9 L 2.8 L Globulin 2.5 2.2 L Albumin/Globulin Ratio 1.2 1.3 TSH 1.28 Quality Measures Quality Measures none Advance care planning discussed with:: patient and spouse Assessment & Plan Assessment Current Active Medications: Generic Name Dose Route Start Last Admin Trade Name Freq PRN Reason Stop Dose Admin Acetaminophen 650 mg 06/25/24 15:25 06/26/24 13:22 Acetaminophen 325 Mg Tablet PO 07/25/24 15:24 650 mg Q6H PRN Administration Fever >100.3 or pain Albuterol/Ipratropium 3 ml 06/25/24 15:39 Albuterol/Ipratropium (Duoneb) Rt Lianna 3 Ml Nebu INH 07/25/24 18:59 Q6HRRT PRN wheezing Carbidopa/Levodopa 2 tab 06/26/24 22:00 06/27/24 09:07 Carbidopa/Levodopa 25/100 Mg Tablet PO 07/26/24 21:59 2 tab 5 TIMES DAILY BETTYE Administration Dextrose 25 ml 06/26/24 04:15 Dextrose 50%-Water Inj 50 Ml Syringe IV 07/26/24 04:14 Q15MIN PRN BG 50-70 responsive npo pt Dextrose 50 ml 06/26/24 04:15 Dextrose 50%-Water Inj 50 Ml Syringe IV 07/26/24 04:14 Q15MIN PRN BG <50 OR BG <70 & pt unresponsive Ferrous Sulfate 325 mg 06/25/24 15:45 06/27/24 09:07 Ferrous Sulf 325 Mg Tablet PO 07/25/24 15:44 325 mg QOD BETTYE Administration Finasteride 5 mg 06/26/24 14:15 06/27/24 09:07 Finasteride 5 Mg Tablet PO 07/26/24 14:14 5 mg QDAY BETTYE Administration Glucagon 1 mg 06/26/24 04:15 Glucagon Inj 1 Mg Vial IM Q15MIN PRN BG <70, and no IV access Azithromycin 500 mg/ Sodium 250 mls @ 250 mls/hr 06/26/24 14:00 06/26/24 14:58 Chloride IV 07/01/24 13:59 250 mls/hr QDAY@1400 BETTYE Administration Ceftriaxone Sodium 1,000 mg/ 50 mls @ 100 mls/hr 06/25/24 15:45 06/26/24 21:09 Sodium Chloride IV 06/30/24 15:44 100 mls/hr QPM BETTYE Administration Amiodarone HCl/Dextrose 360 mg in 200 mls @ 16.667 mls/hr 06/27/24 00:06 06/27/24 12:21 Nexterone Ivpb IV 06/28/24 00:05 16.667 mls/hr .Q12H BETTYE Administration Insulin Human Lispro 0 unit 06/26/24 07:30 06/27/24 10:38 Insulin Lispro (Admelog) 1 Unit/0.01 Ml Unit SC 07/26/24 07:29 Not Given [facility] Protocol Megestrol Acetate 40 mg 06/26/24 21:00 06/27/24 09:07 Megestrol Acet 20 Mg Tablet PO 07/26/24 20:59 40 mg BID BETTYE Administration Ondansetron HCl 4 mg 06/25/24 15:31 06/25/24 17:11 Ondansetron Inj 2 Mg/Ml Inj 2 Ml IV 07/25/24 15:30 4 mg Q6H PRN Administration NAUSEA OR VOMITING Protocol Oseltamivir Phosphate 75 mg 06/25/24 15:45 06/27/24 09:07 Oseltamivir 75 Mg Capsule PO 06/30/24 15:44 75 mg BID BETTYE Administration Pantoprazole Sodium 40 mg 06/26/24 21:00 06/27/24 09:07 Pantoprazole 40 Mg Tablet PO 07/26/24 20:59 40 mg BID BETTYE Administration Sennosides 1 tab 06/25/24 15:31 Senna Tablet PO 07/25/24 15:30 QDAY PRN constipation Protocol Trazodone HCl 150 mg 06/26/24 21:00 06/26/24 21:09 Trazodone Hcl 50 Mg Tablet PO 07/26/24 20:59 150 mg HS BETTYE Administration Plan Gato Haile is 78 yr male with PMH of BPH, GERD, Parkinson's, diabetes mellitus, depression, stage III lung cancer undergoing radiation, 2 L oxygen use at baseline, COPD who presented to ED today from home after experiencing a drop in his oxygenation status. Most of the history was obtained from chart review as patient is poor historian. Will admit patient for management of AHRF secondary to acute PE versus pneumonia and treatment for flu. #Paroxysmal afib with RVR, resolved In the setting of flu, CAP, - On amiodarone drip - CHADVASC > 2, may consider anticoagulation however patient Hb dropping, pending FOBT to rule out GIB - Cardiology following, appreciate reccomendations - Keep Mg > 2, K > 4 #Acute on chronic hypoxic respiratory failure secondary to CAP, Influenza A In the setting of stage 3 lung cancer, COPD Patient uses 2 L oxygen at home at baseline CAP and Influenza A+ Chest x-ray showed right lung pneumonia, right sided pleural fluid not amenable to thoracentesis ? Ceftriaxone 1 g daily for 5 days (06/25-06/30) ? Azithromycin 500 mg daily for 5 days (06/25-06/30) - Tamiflu (06/25-06/30) - Duonebs prn #Second degree superficial john over chest Patient had hot water spilt on chest - Supportive care, wound care, petroleum jelly #Chronic microcytic anemia Ddx: Blood loss anemia, side effect of radiation therapy, poor oral intake, medication side effect - FOBT pending - Continue home iron #Hx stage III lung cancer Extensive smoking history. Undergoing radiation therapy. ? Follow-up with oncology outpatient #Hx Parkinsons - Restart home meds carbidopa-levidopa #Hx GERD - On protonix #Hx BPH - Continue home finasteride #Hx hypertension - Holding metoprolol in the setting of soft BP #Acute right lower lobe pulmonary embolism-ruled out CTA positive for PE in the distal branch of the main pulmonary artery Cardiology consulted--no PE noticed on re-read. Echo did not show right heart strain No LE DVT Heparin drip discontinued. Health maintenance: Dispo: tele for tx flu, pneumonia, afib RVR DVT prophylaxis: hep drip dc'd; SCD CODE STATUS: Full code Diet: regluar GI proph: Pantoprazole 40 mg I have reviewed and discussed the patient's care with my attending, Dr. Rosaura Dodge MD PGY-3
[2024-06-27] MEDS: AZITHROMYCIN INJ 500 MG in SODIUM CHLORIDE 0.9% 250 ML 250 ML 250 MG IV (14:14)
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
[2024-06-27] MEDS: traZODone HCL 50 MG TABLET 150 MG PO (21:06)
[2024-06-27] MEDS: cefTRIAXone 1,000 MG in SODIUM CHLORIDE 0.9% (Popper) 50 ML 100 MG IV (21:08)
[2024-06-28] VITALS (13 sets, daily range): BP systolic 114–167; BP diastolic 53–78; PULSE 72–97; RESP 12–28; TEMP 36.3–36.8; O2SAT 97–100; BMI 21.3; BMI 21.2
[2024-06-28] MEDS: CARBIDOPA/LEVODOPA 25/100 MG TABLET 2 TAB PO ×5 (05:31→21:35)
[2024-06-28 06:07] LABS: Basophils % (Auto) 0 % (0-2.5); Eosinophils % (Auto) 1 % (0-10); Hematocrit 23.8 % (41.0-53.0); Immature Granulocytes % (Auto) 1 % (0-0); Immature Granulocytes Auto 0.02 Thou/mm3 (0.00-0.00); Lymphocytes # (Auto) 0.4 Thou/mm3 (1.0-4.8); Lymphocytes % (Auto) 9 % (10-50); Mean Corpuscular Hemoglobin 21.4 pg (25.0-35.0); Mean Corpuscular Volume 74 fL (80-100); Monocytes # (Auto) 0.4 Thou/mm3 (0.0-0.8); Monocytes % (Auto) 10 % (0-12); Neutrophils # (Auto) 3.2 Thou/mm3 (1.8-7.7); Neutrophils % (Auto) 80 % (37-80); Nucleated Red Blood Cell % 0 /100 WBC (0); Platelet Count 138 Thou/mm3 (140-440); Red Blood Count 3.22 Miln/mm3 (4.50-5.90)
[2024-06-28 06:25] LABS: Hemoglobin 6.9 g/dL (13.5-16.0)
[2024-06-28 06:37] LABS: Alanine Aminotransferase < 7 U/L (10-49); Albumin, Serum 2.7 gm/dL (3.4-4.8); Albumin/Globulin Ratio 1.2 (1.2-2.2); Alkaline Phosphatase 67 U/L (46-116); Anion Gap 4 (7-16); Aspartate Amino Transferase < 8 U/L (0-34); BUN/Creatinine Ratio 48 Ratio (12-20); Bilirubin,Total 0.2 mg/dL (0.3-1.2); Blood Urea Nitrogen 24 mg/dL (9-23); Calcium 8.2 mg/dL (8.3-10.6); Calcium (Corrected) 9.2 mg/dL (8.5-10.1); Carbon Dioxide 32.4 mMol/L (20.0-31.0); Chloride 103 mMol/L (98-107); Creatinine (Component) 0.5 mg/dL (0.6-1.3); Estimated Creatinine Clearance 104.8 mL/min (>60); Globulin 2.3 gm/dL (2.3-3.5); Glucose 83 mg/dL (74-106); Osmolality,Calculated 280 (275-295); Sodium 139 mMol/L (136-145); eGFR > 60 See Note
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
[2024-06-28] MEDS: MEGESTROL ACET 20 MG TABLET 40 MG PO ×2 (09:51→20:30)
[2024-06-28] MEDS: OSELTAMIVIR 75 MG CAPSULE PO ×2 (09:51→20:28)
[2024-06-28] MEDS: PANTOPRAZOLE 40 MG TABLET PO (09:51)
[2024-06-28] MEDS: FINASTERIDE 5 MG TABLET PO (09:56)
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
[2024-06-28] MEDS: AMIODARONE HCL 200 MG TABLET PO ×2 (12:05→20:30)
[2024-06-28] MEDS: AZITHROMYCIN INJ 500 MG in SODIUM CHLORIDE 0.9% 250 ML 250 ML 250 MG IV (13:13)
[2024-06-28 15:10] LABS: Hematocrit 26.2 % (41.0-53.0)
[2024-06-28 15:45] LABS: Hemoglobin 7.9 g/dL (13.5-16.0)
--- NOTE | 2024-06-28 16:16 | PC.SS ---
SS follow up note; SS set up transportation for patient to discharge to [facility] at 2030. SS informed patients nurse, Kiran as well as patient's and Yary from [facility].
--- NOTE | 2024-06-28 20:22 | PD.IMCONS ---
HPI Data of Consult Requesting Physician: Paulino Kaplan MD Primary Care Provider: Sundar Arcos PA-C Consult Narrative Reason for consult: H/H 6.9/23.8 History of present illness: 78-year-old male evaluated at request of the internal medicine team for dropping hemoglobin hematocrit It did drop down to 6.9 and 23.8 with microcytic indices Patient was given a unit of PRBCs it has come up to 7.9 and 26.2 FOBT is pending BUN/creatinine is 24 and 0.5 Patient has paroxysmal atrial fibrillation with RVR controlled with amiodarone at the moment p.o. acute on chronic respiratory failure due to influenza A history of stage III lung carcinoma and Parkinson's disease cc:: cc: Paulino Kaplan MD Review of Systems Review of Systems Systems Reviewed: All systems reviewed, normal except as documented Past Medical History Surgical History OTHER SURGICAL HX: As in the history of present illness Meds Home Medications and Allergies Home Medications ?Medication ?Instructions ?Recorded ?Confirmed ?Type cholecalciferol (vitamin D3) 10 400 mg PO DAILY SUPPLEMENT ##0 03/29/13 06/26/24 History mcg (400 unit) tablet (Vitamin D3) finasteride 5 mg tablet 5 mg PO DAILY ##0 03/29/13 06/26/24 History omeprazole 40 mg capsule,delayed 40 mg PO QDAY 01/23/18 06/26/24 History release albuterol sulfate 90 mcg/actuation 2 puff inhalation Q4H PRN sob 10/08/21 06/26/24 History aerosol inhaler aspirin 81 mg tablet,delayed 81 mg PO QDAY 10/08/21 06/26/24 History release carbidopa ER 50 mg-levodopa 200 mg 1 tab PO HS 10/08/21 06/26/24 History tablet,extended release cetirizine 10 mg tablet 10 mg PO QDAY PRN allergy symptoms 10/08/21 06/26/24 History diclofenac sodium 0.1 % eye drops 1 drp ophthalmic (eye) BID 10/08/21 06/26/24 History fluticasone 250 mcg-salmeterol 50 1 inh inhalation BID 10/08/21 09/13/22 History mcg/dose blistr powdr for inhalation (Wixela Inhub) melatonin 5 mg tablet 5 - 10 mg PO HS 10/08/21 06/26/24 History metformin 750 mg tablet,extended 750 mg PO QDAY 10/08/21 06/26/24 History release 24 hr moxifloxacin 0.5 % eye drops 1 drp ophthalmic (eye) QID 10/08/21 06/26/24 History paroxetine HCl 40 mg tablet 40 mg PO QDAY 10/08/21 06/26/24 History prednisolone acetate 1 % eye 1 drp ophthalmic (eye) QID 10/08/21 06/26/24 History drops,suspension roflumilast 500 mcg tablet 500 mcg PO QDAY 10/08/21 06/26/24 History simvastatin 40 mg tablet 20 mg PO HS 10/08/21 06/26/24 History tiotropium bromide 2.5 2 puff inhalation QDAY 10/08/21 09/13/22 History mcg/actuation mist for inhalation trazodone 100 mg tablet 150 mg PO HS 10/08/21 06/26/24 History docusate sodium 250 mg capsule 250 mg PO QDAY 09/13/22 06/26/24 History isosorbide mononitrate 30 mg 30 mg PO QDAY 09/13/22 06/26/24 History tablet,extended release 24 hr carbidopa 25 mg-levodopa 100 mg 2 tab PO 5 TIMES DAILY 02/18/24 06/26/24 History tablet carbidopa ER 50 mg-levodopa 200 mg 1 tab PO QDAY 02/18/24 06/26/24 History tablet,extended release donepezil 5 mg tablet 5 mg PO QDAY 02/18/24 06/26/24 History fluticasone 500 mcg-salmeterol 50 1 inh inhalation Q12H 02/18/24 06/26/24 History mcg/dose blistr powdr for inhalation (Wixela Inhub) metoprolol succinate 100 mg 50 mg PO QDAY 02/18/24 06/26/24 History tablet,extended release 24 hr benzonatate 100 mg capsule 100 mg PO TID PRN cough 06/26/24 06/26/24 History carboxymethylcellulose sodium 0.5 1 drp ophthalmic (eye) BID PRN dry 06/26/24 06/26/24 History % eye drops in a dropperette eye(s) hydrocodone 5 mg-acetaminophen 325 1 tab PO Q4H PRN pain 06/26/24 06/26/24 History mg tablet megestrol 40 mg tablet 40 mg PO BID 06/26/24 06/26/24 History ondansetron 4 mg disintegrating 4 mg PO Q8H PRN nausea and vomiting 06/26/24 06/26/24 History tablet Allergies Allergy/AdvReac Type Severity Reaction Status Date / Time No Known Allergies Allergy Verified 06/25/24 09:53 Exam Vital Signs Temp Pulse Resp BP Pulse Ox O2 Del Method O2 Flow Rate 97.6 F 77 20 119/66 100 Nasal Cannula 2 06/28/24 16:00 06/28/24 16:00 06/28/24 16:00 06/28/24 16:00 06/28/24 16:00 06/28/24 16:00 06/28/24 16:00 FiO2 35 06/25/24 11:27 Constitutional Comments: Chronically ill-appearing Routine Respiratory Exam Comments: Scattered rhonchi Routine Abdominal Exam Comments: Soft nontender Results Labs 06/28/24 14:56 06/28/24 05:38 Labs: Short CBC 06/28/24 06/28/24 Range/Units 05:38 14:56 WBC 4.0 (3.8-10.6) Thou/mm3 Hgb 6.9 L* 7.9 L (13.5-16.0) g/dL Hct 23.8 L 26.2 L (41.0-53.0) % Plt Count 138 L (140-440) Thou/mm3 BMP 06/28/24 05:38 Sodium 139 Potassium 4.0 D Chloride 103 Carbon Dioxide 32.4 H BUN 24 H Creatinine 0.5 L Glucose 83 Calcium 8.2 L Liver Function 06/28/24 Range/Units 05:38 Total Bilirubin 0.2 L (0.3-1.2) mg/dL AST < 8 (0-34) U/L ALT < 7 L (10-49) U/L Alkaline Phosphatase 67 (46-116) U/L Albumin 2.7 L (3.4-4.8) gm/dL Assessment and Plan Additional Assessment & Plan Additional Plan: # Microcytic anemia with drop in hemoglobin hematocrit requiring blood transfusion Consent obtained for fiberoptic esophagogastroduodenoscopy with possible biopsy possible therapeutic intervention under intravenous moderate sedation Other medical problems include # acute on chronic hypoxic respiratory failure # Parkinson's disease # A-fib rate controlled # History of stage III lung carcinoma thank you very much for the opportunity to participate in the care of this patient
[2024-06-28] MEDS: HYDROcodone/APAP 5/325 TABLET 1 TAB PO (20:27)
[2024-06-28] MEDS: MELATONIN 3 MG TABLET 6 MG PO (20:28)
[2024-06-28] MEDS: PANTOPRAZOLE INJ 40 MG VIAL IV (20:30)
[2024-06-28] MEDS: cefTRIAXone 1,000 MG in SODIUM CHLORIDE 0.9% (Popper) 50 ML 100 MG IV (20:30)
[2024-06-28] MEDS: traZODone HCL 50 MG TABLET 150 MG PO (20:30)
[2024-06-29] VITALS (11 sets, daily range): BP systolic 100–152; BP diastolic 52–70; PULSE 78–96; RESP 20–22; TEMP 36.2–36.6; O2SAT 92–99; BMI 21.7
[2024-06-29 05:10] LABS: Basophils % (Auto) 0 % (0-2.5); Eosinophils # (Auto) 0.1 Thou/mm3 (0.0-0.5); Eosinophils % (Auto) 1 % (0-10); Hematocrit 26.3 % (41.0-53.0); Immature Granulocytes % (Auto) 0 % (0-0); Immature Granulocytes Auto 0.01 Thou/mm3 (0.00-0.00); Lymphocytes # (Auto) 0.4 Thou/mm3 (1.0-4.8); Lymphocytes % (Auto) 9 % (10-50); Mean Corpuscular HGB Conc 30.4 g/dl (31.0-37.0); Mean Corpuscular Hemoglobin 22.4 pg (25.0-35.0); Mean Corpuscular Volume 74 fL (80-100); Monocytes # (Auto) 0.4 Thou/mm3 (0.0-0.8); Monocytes % (Auto) 8 % (0-12); Neutrophils # (Auto) 3.5 Thou/mm3 (1.8-7.7); Neutrophils % (Auto) 81 % (37-80); Nucleated Red Blood Cell % 0 /100 WBC (0); Platelet Count 122 Thou/mm3 (140-440); RDW Standard Deviation 47.3 fL (35.1-43.9); Red Blood Count 3.57 Miln/mm3 (4.50-5.90); White Blood Count 4.4 Thou/mm3 (3.8-10.6)
[2024-06-29] MEDS: CARBIDOPA/LEVODOPA 25/100 MG TABLET 2 TAB PO ×4 (05:23→20:57)
[2024-06-29 05:58] LABS: Alanine Aminotransferase < 7 U/L (10-49); Albumin, Serum 2.7 gm/dL (3.4-4.8); Albumin/Globulin Ratio 1.2 (1.2-2.2); Anion Gap 7 (7-16); Aspartate Amino Transferase < 8 U/L (0-34); BUN/Creatinine Ratio 60 Ratio (12-20); Bilirubin,Total 0.5 mg/dL (0.3-1.2); Blood Urea Nitrogen 24 mg/dL (9-23); Calcium 8.1 mg/dL (8.3-10.6); Calcium (Corrected) 9.1 mg/dL (8.5-10.1); Carbon Dioxide 31.1 mMol/L (20.0-31.0); Chloride 101 mMol/L (98-107); Creatinine (Component) 0.4 mg/dL (0.6-1.3); Globulin 2.2 gm/dL (2.3-3.5); Glucose 83 mg/dL (74-106); Osmolality,Calculated 280 (275-295); Potassium 4.1 mMol/L (3.4-5.1); Sodium 139 mMol/L (136-145); Total Protein 4.9 gm/dL (5.7-8.2); eGFR > 60 See Note
[2024-06-29 06:15] LABS: Alkaline Phosphatase 71 U/L (46-116)
--- NOTE | 2024-06-29 07:35 | PC.SS ---
Update: Patient is schedule to participate in EGD today with Dr. Hernandez.
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
[2024-06-29] MEDS: PANTOPRAZOLE INJ 40 MG VIAL IV ×2 (09:32→20:06)
[2024-06-29] MEDS: AMIODARONE HCL 200 MG TABLET PO ×2 (09:33→20:05)
[2024-06-29] MEDS: OSELTAMIVIR 75 MG CAPSULE PO ×2 (09:33→20:57)
[2024-06-29] MEDS: FINASTERIDE 5 MG TABLET PO (09:33)
[2024-06-29] MEDS: MEGESTROL ACET 20 MG TABLET 40 MG PO ×2 (09:34→20:06)
[2024-06-29] MEDS: FERROUS SULF 325 MG TABLET PO (09:34)
--- NOTE | 2024-06-29 10:52 | CHAP ---
Patient was visited by a Spiritual Care Volunteer on 06/29/2024 between 0900 and 0948 and received comfort, encouragement, and/or prayer.
[2024-06-29 11:40] LABS: Magnesium 1.6 mg/dL (1.6-2.6)
[2024-06-29] MEDS: AZITHROMYCIN INJ 500 MG in SODIUM CHLORIDE 0.9% 250 ML 250 ML 250 MG IV (13:33)
[2024-06-29] MEDS: Magnesium Sulfate 4 GM Ivpb 4 GM/50 ML BAG IV (13:33)
--- NOTE | 2024-06-29 14:58 | XR_ITS ---
Examination: Duplex scan of the upper extremity, unilateral left Date and time of exam: June 29, 2024 1513 hrs. Indications: Left arm swelling and pain today Technique: Duplex scan of the extremity veins using B-mode/grayscale imaging and Doppler spectral analysis and color flow Attention is directed to internal echogenicity, compression and augmentation involving these veins, color flow assessment, spectral analysis Findings: Positive for acute thrombus in the basilic vein Jugular subclavian axillary cephalic brachial radial and ulnar veins are open Impression: Positive for acute thrombus in the basilic vein
[2024-06-29] MEDS: MORPHINE SULF INJ 10 MG/ML VIAL 2 MG IVP (15:07)
--- NOTE | 2024-06-29 17:06 | PC.SS ---
Rounding Note: Patient to obtain EGD today. Plan is to d/c within 2 days.
[2024-06-29] MEDS: traZODone HCL 50 MG TABLET 150 MG PO (20:05)
[2024-06-29] MEDS: cefTRIAXone 1,000 MG in SODIUM CHLORIDE 0.9% (Popper) 50 ML 100 MG IV (20:06)
[2024-06-30] VITALS (24 sets, daily range): BP systolic 67–139; BP diastolic 49–76; PULSE 62–150; RESP 15–92; TEMP 36–37.2; O2SAT 86–100; BMI 21.5
--- NOTE | 2024-06-30 04:28 | EKG_ITS ---
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
--- NOTE | 2024-06-30 04:30 | PD.RESEVENT ---
Documentation for date of: 06/30/24 Event Note Event Note: Rapid response called for patient around 4:30 AM, patient's map at 60, heart rate sustaining in 150s, ordered EKG, shows irregular rhythm atrial fibrillation no discernible P waves noted. No crackles heard on physical exam, patient will be given 1 L bolus of LR, will be started on amiodarone drip. Ordered CBC CMP and lactate levels, will follow results. Otherwise per nurse patient confused at baseline has dementia and Parkinson's, patient verbalized understanding of current condition. Will continue to monitor patient closely. Case discussed with Attending Dr. Charles. Dustin Saldivar PGY1 Disclaimer: This note was dictated by speech recognition. Minor errors in senior reactor operator may be present due to voice recognition software.
[2024-06-30] MEDS: AMIODARONE 150 MG IVPB 150 MG/100 ML BAG 600 MG IV (04:53)
[2024-06-30] MEDS: RINGERS LACTATED 1000 ML 1,000 ML 999 ML IV (05:00)
[2024-06-30] MEDS: AMIODARONE 360 MG IVPB 360 MG/200 ML BAG 33.333 MG IV (05:09)
[2024-06-30 05:21] LABS: Lactate (Lactic Acid) 1.5 mMol/L (0.4-2.0)
[2024-06-30 05:22] LABS: Basophils % (Auto) 0 % (0-2.5); Eosinophils % (Auto) 1 % (0-10); Hematocrit 24.2 % (41.0-53.0); Immature Granulocytes % (Auto) 0 % (0-0); Immature Granulocytes Auto 0.02 Thou/mm3 (0.00-0.00); Lymphocytes # (Auto) 0.5 Thou/mm3 (1.0-4.8); Lymphocytes % (Auto) 10 % (10-50); Mean Corpuscular HGB Conc 29.3 g/dl (31.0-37.0); Mean Corpuscular Hemoglobin 21.8 pg (25.0-35.0); Mean Corpuscular Volume 75 fL (80-100); Monocytes # (Auto) 0.4 Thou/mm3 (0.0-0.8); Monocytes % (Auto) 9 % (0-12); Neutrophils # (Auto) 3.6 Thou/mm3 (1.8-7.7); Neutrophils % (Auto) 79 % (37-80); Nucleated Red Blood Cell % 0 /100 WBC (0); Platelet Count 135 Thou/mm3 (140-440); RDW Standard Deviation 47.8 fL (35.1-43.9); Red Blood Count 3.25 Miln/mm3 (4.50-5.90); White Blood Count 4.5 Thou/mm3 (3.8-10.6)
[2024-06-30 05:24] LABS: Hemoglobin 7.1 g/dL (13.5-16.0)
[2024-06-30 06:09] LABS: Alanine Aminotransferase < 7 U/L (10-49); Albumin, Serum 2.7 gm/dL (3.4-4.8); Albumin/Globulin Ratio 1.2 (1.2-2.2); Alkaline Phosphatase 63 U/L (46-116); Anion Gap 8 (7-16); Aspartate Amino Transferase < 8 U/L (0-34); BUN/Creatinine Ratio 42 Ratio (12-20); Bilirubin,Total 0.4 mg/dL (0.3-1.2); Blood Urea Nitrogen 21 mg/dL (9-23); Calcium 8.2 mg/dL (8.3-10.6); Calcium (Corrected) 9.2 mg/dL (8.5-10.1); Carbon Dioxide 29.4 mMol/L (20.0-31.0); Chloride 103 mMol/L (98-107); Creatinine (Component) 0.5 mg/dL (0.6-1.3); Estimated Creatinine Clearance 107.6 mL/min (>60); Globulin 2.2 gm/dL (2.3-3.5); Glucose 81 mg/dL (74-106); Magnesium 1.8 mg/dL (1.6-2.6); Osmolality,Calculated 281 (275-295); Potassium 4.1 mMol/L (3.4-5.1); Sodium 140 mMol/L (136-145); Total Protein 4.9 gm/dL (5.7-8.2); eGFR > 60 See Note
[2024-06-30] MEDS: CARBIDOPA/LEVODOPA 25/100 MG TABLET 2 TAB PO ×5 (06:42→22:54)
[2024-06-30] MEDS: FINASTERIDE 5 MG TABLET PO (09:04)
[2024-06-30] MEDS: MEGESTROL ACET 20 MG TABLET 40 MG PO ×2 (09:04→20:15)
[2024-06-30] MEDS: PANTOPRAZOLE INJ 40 MG VIAL IV ×2 (09:04→20:15)
[2024-06-30] MEDS: OSELTAMIVIR 75 MG CAPSULE PO (09:04)
[2024-06-30] MEDS: Magnesium Sulfate 2 GM Ivpb 2 GM/50 ML BAG IV (09:09)
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
[2024-06-30] MEDS: AMIODARONE 360 MG IVPB 360 MG/200 ML BAG 16.667 MG IV ×2 (09:48→20:56)
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
[2024-06-30] MEDS: AZITHROMYCIN INJ 500 MG in SODIUM CHLORIDE 0.9% 250 ML 250 ML 250 MG IV (14:08)
--- NOTE | 2024-06-30 14:37 | PC.SS ---
JOB PRESS FEEDER conducted bedside contact with patient and spouse, Ellie. Confirmed discharge plan is for the patient to return home. If home health recommended, no preferred agency identified.
[2024-06-30 15:02] LABS: Hematocrit 28.7 % (41.0-53.0); Hemoglobin 8.8 g/dL (13.5-16.0)
[2024-06-30] MEDS: traZODone HCL 50 MG TABLET 150 MG PO (20:15)
--- NOTE | 2024-06-30 21:38 | PD.IMPROG ---
Documentation for date of: 06/30/24 Subjective Subjective Interval history: Patient evaluated Hemoglobin hematocrit 8.8 and 25.7 Upper endoscopy showed gastritis and esophagitis Spoke with the and explained to her that he is not a candidate for colonoscopy prep and colonoscopy and she agreed Treat conservatively and as needed by transfusion Exam Vital Signs Temp Pulse Resp BP Pulse Ox O2 Del Method O2 Flow Rate 97.9 F 62 17 108/64 86 L Nasal Cannula 2 06/30/24 20:00 06/30/24 20:56 06/30/24 20:00 06/30/24 20:56 06/30/24 20:00 06/30/24 20:00 06/30/24 20:00 FiO2 35 06/30/24 20:00 Constitutional Comments: Chronically ill Routine Respiratory Exam Comments: Normal to auscultation Routine Abdominal Exam Comments: Soft nontender Objective Labs 06/30/24 14:52 06/30/24 04:59 Labs: Laboratory Results - last 24 hr 06/28/24 06/30/24 06/30/24 07:10 04:59 14:52 WBC 4.5 RBC 3.25 L Hgb 7.1 L 8.8 L D Hct 24.2 L 28.7 L MCV 75 L MCH 21.8 L MCHC 29.3 L RDW Std Deviation 47.8 H Plt Count 135 L Neut % (Auto) 79 Lymph % (Auto) 10 [place] % (Auto) 9 Eos % (Auto) 1 Baso % (Auto) 0 Neut # (Auto) 3.6 Lymph # (Auto) 0.5 L [place] # (Auto) 0.4 Eos # (Auto) 0.0 Baso # (Auto) 0.0 Immature Gran # (Auto) 0.02 H Absolute Nucleated RBC 0.00 Immature Gran % 0 Nucleated RBC % 0 Sodium 140 Potassium 4.1 Chloride 103 Carbon Dioxide 29.4 Anion Gap 8 BUN 21 Creatinine 0.5 L Estim Creat Clear Calc 107.6 eGFR > 60 BUN/Creatinine Ratio 42 H Glucose 81 Calculated Osmolality 281 Lactic Acid 1.5 Calcium 8.2 L Corrected Calcium 9.2 Magnesium 1.8 Total Bilirubin 0.4 AST < 8 ALT < 7 L Alkaline Phosphatase 63 Total Protein 4.9 L Albumin 2.7 L Globulin 2.2 L Albumin/Globulin Ratio 1.2 Blood Type O Positive Antibody Screen NEGATIVE Crossmatch See Detail Blood Bank Wristband ID Yes Impressions Impression: # Anemia blood loss # Gastritis # Esophagitis Continue conservative management Assessment & Plan A&P Narrative # Microcytic anemia with drop in hemoglobin hematocrit requiring blood transfusion Consent obtained for fiberoptic esophagogastroduodenoscopy with possible biopsy possible therapeutic intervention under intravenous moderate sedation Other medical problems include # acute on chronic hypoxic respiratory failure # Parkinson's disease # A-fib rate controlled # History of stage III lung carcinoma thank you very much for the opportunity to participate in the care of this patient Time Spent With Patient Time: Total time spent is greater than 50% in coordination of care (as documented) at patient's floor/unit and/or counseling patient:
[2024-07-01] VITALS (9 sets, daily range): BP systolic 108–142; BP diastolic 62–75; PULSE 72–86; RESP 18–25; TEMP 35.9–37.3; O2SAT 96–100; BMI 22.3
[2024-07-01 05:42] LABS: Basophils % (Auto) 0 % (0-2.5); Eosinophils % (Auto) 1 % (0-10); Hematocrit 25.8 % (41.0-53.0); Immature Granulocytes % (Auto) 0 % (0-0); Immature Granulocytes Auto 0.01 Thou/mm3 (0.00-0.00); Lymphocytes # (Auto) 0.3 Thou/mm3 (1.0-4.8); Lymphocytes % (Auto) 8 % (10-50); Mean Corpuscular HGB Conc 31.4 g/dl (31.0-37.0); Mean Corpuscular Hemoglobin 23.7 pg (25.0-35.0); Mean Corpuscular Volume 75 fL (80-100); Monocytes # (Auto) 0.3 Thou/mm3 (0.0-0.8); Monocytes % (Auto) 7 % (0-12); Neutrophils # (Auto) 3.1 Thou/mm3 (1.8-7.7); Neutrophils % (Auto) 83 % (37-80); Nucleated Red Blood Cell % 0 /100 WBC (0); Platelet Count 118 Thou/mm3 (140-440); RDW Standard Deviation 49.5 fL (35.1-43.9); Red Blood Count 3.42 Miln/mm3 (4.50-5.90); White Blood Count 3.7 Thou/mm3 (3.8-10.6)
[2024-07-01 05:44] LABS: Hemoglobin 8.1 g/dL (13.5-16.0)
[2024-07-01] MEDS: CARBIDOPA/LEVODOPA 25/100 MG TABLET 2 TAB PO ×5 (06:26→22:11)
[2024-07-01 06:33] LABS: Alanine Aminotransferase < 7 U/L (10-49); Albumin, Serum 2.7 gm/dL (3.4-4.8); Albumin/Globulin Ratio 1.4 (1.2-2.2); Alkaline Phosphatase 63 U/L (46-116); Anion Gap 7 (7-16); Aspartate Amino Transferase < 8 U/L (0-34); BUN/Creatinine Ratio 38 Ratio (12-20); Bilirubin,Total 0.4 mg/dL (0.3-1.2); Blood Urea Nitrogen 15 mg/dL (9-23); Calcium 7.9 mg/dL (8.3-10.6); Calcium (Corrected) 8.9 mg/dL (8.5-10.1); Carbon Dioxide 29.8 mMol/L (20.0-31.0); Chloride 101 mMol/L (98-107); Creatinine (Component) 0.4 mg/dL (0.6-1.3); Estimated Creatinine Clearance 137.9 mL/min (>60); Glucose 85 mg/dL (74-106); Osmolality,Calculated 275 (275-295); Sodium 138 mMol/L (136-145); Total Protein 4.7 gm/dL (5.7-8.2); eGFR > 60 See Note
[2024-07-01] MEDS: ALBUTEROL/IPRATROPIUM (Duoneb) RT SOL 3 ML NEBU INH (06:53)
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
[2024-07-01] MEDS: FINASTERIDE 5 MG TABLET PO (09:40)
[2024-07-01] MEDS: PANTOPRAZOLE INJ 40 MG VIAL IV ×2 (09:40→20:34)
[2024-07-01] MEDS: MEGESTROL ACET 20 MG TABLET 40 MG PO ×2 (09:41→20:33)
[2024-07-01] MEDS: FERROUS SULF 325 MG TABLET PO (09:41)
--- NOTE | 2024-07-01 10:07 | PD.RESPRO ---
Documentation for date of: 07/01/24 Subjective Subjective Interval history: No overnight events. Patient seen and examined at bedside. Patient kelsea comfortable, denies chest pain, shortness of breath, orthopnea, palpitations. Patient had been excessively transition from amiodarone IV drip to p.o. amiodarone. Sinus rhythm. Labs show WBC 3.7, hemoglobin 8.1, sodium 138, potassium 4.0, magnesium 1.8. Keep potassium above 4.0, keep magnesium above 2.0. BUN 15, creatinine 0.4, EGFR greater than 60. Patient is planning for discharge home hospice tomorrow. Recommend follow-up outpatient with cardiology for maintenance of medication, maintaining sinus rhythm. Exam Vital Signs Temp Pulse Resp BP Pulse Ox O2 Del Method O2 Flow Rate 98.2 F 74 19 131/62 H 100 Nasal Cannula 2 07/01/24 08:00 07/01/24 08:00 07/01/24 08:00 07/01/24 08:00 07/01/24 08:00 07/01/24 08:00 07/01/24 08:00 FiO2 35 06/30/24 20:00 Objective Labs 07/01/24 05:07 07/01/24 05:07 Labs: Laboratory Results - last 24 hr 06/28/24 06/30/24 07/01/24 07:10 14:52 05:07 WBC 3.7 L RBC 3.42 L Hgb 8.8 L D 8.1 L Hct 28.7 L 25.8 L MCV 75 L MCH 23.7 L MCHC 31.4 RDW Std Deviation 49.5 H Plt Count 118 L Neut % (Auto) 83 H Lymph % (Auto) 8 L [place] % (Auto) 7 Eos % (Auto) 1 Baso % (Auto) 0 Neut # (Auto) 3.1 Lymph # (Auto) 0.3 L [place] # (Auto) 0.3 Eos # (Auto) 0.0 Baso # (Auto) 0.0 Immature Gran # (Auto) 0.01 H Absolute Nucleated RBC 0.00 Immature Gran % 0 Nucleated RBC % 0 Sodium 138 Potassium 4.0 Chloride 101 Carbon Dioxide 29.8 Anion Gap 7 BUN 15 Creatinine 0.4 L Estim Creat Clear Calc 137.9 eGFR > 60 BUN/Creatinine Ratio 38 H Glucose 85 Calculated Osmolality 275 Calcium 7.9 L Corrected Calcium 8.9 Total Bilirubin 0.4 AST < 8 ALT < 7 L Alkaline Phosphatase 63 Total Protein 4.7 L Albumin 2.7 L Globulin 2.0 L Albumin/Globulin Ratio 1.4 Crossmatch See Detail Quality Measures Quality Measures VTE prophylaxis Advance care planning discussed with:: patient and spouse Assessment & Plan Assessment Current Active Medications: Generic Name Dose Route Start Last Admin Trade Name Freq PRN Reason Stop Dose Admin Acetaminophen 650 mg 06/25/24 15:25 06/26/24 13:22 Acetaminophen 325 Mg Tablet PO 07/25/24 15:24 650 mg Q6H PRN Administration Fever >100.3 or pain Albuterol/Ipratropium 3 ml 06/25/24 15:39 07/01/24 06:53 Albuterol/Ipratropium (Duoneb) Rt Lianna 3 Ml Nebu INH 07/25/24 18:59 3 ml Q6HRRT PRN Administration wheezing Amiodarone HCl 200 mg 06/28/24 10:00 06/29/24 20:05 Amiodarone Hcl 200 Mg Tablet PO 07/28/24 09:59 200 mg BID BETTYE Administration Carbidopa/Levodopa 2 tab 06/26/24 22:00 07/01/24 09:41 Carbidopa/Levodopa 25/100 Mg Tablet PO 07/26/24 21:59 2 tab 5 TIMES DAILY BETTYE Administration Dextrose 25 ml 06/26/24 04:15 Dextrose 50%-Water Inj 50 Ml Syringe IV 07/26/24 04:14 Q15MIN PRN BG 50-70 responsive npo pt Dextrose 50 ml 06/26/24 04:15 Dextrose 50%-Water Inj 50 Ml Syringe IV 07/26/24 04:14 Q15MIN PRN BG <50 OR BG <70 & pt unresponsive Ferrous Sulfate 325 mg 06/25/24 15:45 07/01/24 09:41 Ferrous Sulf 325 Mg Tablet PO 07/25/24 15:44 325 mg QOD BETTYE Administration Finasteride 5 mg 06/26/24 14:15 07/01/24 09:40 Finasteride 5 Mg Tablet PO 07/26/24 14:14 5 mg QDAY BETTYE Administration Glucagon 1 mg 06/26/24 04:15 Glucagon Inj 1 Mg Vial IM Q15MIN PRN BG <70, and no IV access Azithromycin 500 mg/ Sodium 250 mls @ 250 mls/hr 06/26/24 14:00 06/30/24 14:08 Chloride IV 07/01/24 13:59 250 mls/hr QDAY@1400 BETTYE Administration Amiodarone HCl/Dextrose 360 mg in 200 mls @ 16.667 mls/hr 06/30/24 10:28 06/30/24 20:56 Nexterone Ivpb IV 07/01/24 10:27 16.667 mls/hr .Q12H BETTYE Administration Insulin Human Lispro 0 unit 06/26/24 07:30 07/01/24 07:35 Insulin Lispro (Admelog) 1 Unit/0.01 Ml Unit SC 07/26/24 07:29 Not Given AC BETTYE Protocol Megestrol Acetate 40 mg 06/26/24 21:00 07/01/24 09:41 Megestrol Acet 20 Mg Tablet PO 07/26/24 20:59 40 mg BID BETTYE Administration Ondansetron HCl 4 mg 06/25/24 15:31 06/25/24 17:11 Ondansetron Inj 2 Mg/Ml Inj 2 Ml IV 07/25/24 15:30 4 mg Q6H PRN Administration NAUSEA OR VOMITING Protocol Pantoprazole Sodium 40 mg 06/28/24 21:00 07/01/24 09:40 Pantoprazole Inj 40 Mg Vial IV 07/12/24 20:59 40 mg BID BETTYE Administration Sennosides 1 tab 06/25/24 15:31 Senna Tablet PO 07/25/24 15:30 QDAY PRN constipation Protocol Trazodone HCl 150 mg 06/26/24 21:00 06/30/24 20:15 Trazodone Hcl 50 Mg Tablet PO 07/26/24 20:59 150 mg HS BETTYE Administration Plan Mr. Haile is a 78 year old male with past medical history significant for Parkinson's, hypertension, hyperlipidemia, [id number] type 2 diabetes, COPD on 2L home O2 and lung cancer (patient's initial diagnosis was 6 months ago and he is undergoing radiation therapy for the last 2 weeks) presented to the ED complaining of lethargy, shortness of breath and low oxygen saturations at home. Cardiology is consulted for thombectomy of right main pulmonary artery. # Paroxysmal A-fib with RVR On Sat Pt went into afib with RVR. EKG findings are consistent with A-fib with RVR with heart rate of 140s- 170's [id number] score 4 HASBLED score 2 Patient was started on amiodarone drip, patient is converted to normal sinus rhythm and transition to p.o. amiodarone 200 Mg twice daily. -NO BB due to hypotension. -Pt has acute anemia with gastric hemorrhage will hold anticoagulation for now. -Continue p.o. amiodarone -Outpatient follow-up with cardiology outpatient for medication management #Acute on chronic hypoxic respiratory failure 06/06 #Right lung Pneumonia #Influenza A positive #? right pleural effusion in the setting of #COPD Patient is complaining of low oxygen saturation, shortness of breath and weakness Pt has long standing history of COPD and is on 2L O2 at home Although CRX reading indicates pleural effusions on the right side, IR during drainage identified it mostly solid material Influenza A positive -Pt is on supplemental oxygen, scheduled duonebs, tamiflu and antibiotics #Acute right lower lobe pulmonary embolism- ruled out CTA chest CTA Positive for pulmonary artery emboli in the distal right main pulmonary artery right lower lobe pulmonary artery branches. In the ED, Pt was started on heparin drip Echo ordered done on 06/25/24 Normal LV function with an EF of around 55 to 60%. Grade 1 diastolic dysfunction. Normal LV size. Normal RV size and function. Estimated RVSP 25 mmHg. Mild TR Moderate aortic valve sclerosis without any evidence of stenosis with moderate calcification. Trace to mild AI. Mild to moderate MAC and thickening of the mitral leaflets. Mild MR. No pericardial effusion but pleural effusion noted. Cardiology is consulted for thrombectomy however, upon looking at images there is no evidence of any pulmonary embolism right main PA and right lower lobe pulmonary arteries. Pt has stage lll lung cancer bilaterally therefore appears to be mass with consildation and some effusions in the right lower lobe. echo shows no significant RV strain -Recommend to discontinue heparin drip and no other anticoagulation at this time #Microcytic Anemia Pt denies hematemesis, melena or hematochezia There is no evidence of active bleeding, this is likely multifactorial secondary to poor oral intake, anemia of chronic disease in the setting of malignancy and radiation on admission Hb 8.1, MCV 73 Iron panel- iron 109 and TIBC 191 Pt is started on ferrous sulfate po GI is consulted, endoscopy findings consistent with esophagitis and gastritis with hemorrhage. Patient is started on Protonix twice daily. Per GI patient is not a candidate to undergo colonoscopy due to his current state of health. -Continue Protonix as per GI recommendations -Monitor hemoglobin, transfuse as needed #Stage III lung cancer Pt is diagnosed aproximately 6 months ago and is undergoing radiation therapy at [facility] Pt has 80 packs/ year smoking history and quit in 2002 -Patient will discharge tomorrow on hospice. #Primary hypertension -Recommend starting pt on ACEI #BPH -resume home finesteride #GERD -Pt is on pantropazole #Hx of Parkinsons ?Pt home meds include Carbidopa levodopa 50?200 mg daily, Donepezil 5 mg daily -resume home meds Assessment and plan discussed with my attending physician Dr. Preciado. Josiah Leo MD PGY?1 Attending Provider Attestation/Addendum I have personally seen and examined the patient separately on the above date of service and discussed the plan of care with the resident. I reviewed the resident Dr. Dr. Josiah Leo consultation progress note and agree with the resident findings and plan in the note above and have also edited the documentation to reflect my findings and plan. Redd Preciado M.D. Interventional Cardiology
--- NOTE | 2024-07-01 11:01 | PC.SS ---
Goals of care discussion conducted with patient and patient's spouse, Ellie Haile. Medical team consisted of Dr. Kaplan, Dr. Galvan and Dr. Robledo. Medical team provided overview on patient's condition, interventions and prognosis. Follow medical team overview discussed patient's candidacy for hospice services. Patient and spouse provided overview on hospice services. Patient's spouse confirmed request to meet with hospice agency prior to making final decision. Preferred hospice agency [facility]. SCANNING SUPERVISOR contacted [facility] hospice staff to arrange bedside contact with the patient and patient's spouse. Hospice to meet with patient and spouse at approximately 12:00 pm today.
--- NOTE | 2024-07-01 12:57 | PC.SS ---
Hospice staff present to meet with patient and spouse. RADIOLOGICAL TECHNOLOGIST to follow up with patient and spouse on outcome of decision.
--- NOTE | 2024-07-01 13:10 | PC.SS ---
EDITING COMPUTER PUBLISHER met with patient and patient's spouse, Ellie. Patient and spouse confirmed decision to transition the patient to hospice care. Spouse requesting discharge for 07-02-24 in order to get residence prepared for patient's return. Hospice referral to be submitted to [facility].
--- NOTE | 2024-07-01 17:16 | PC.SS ---
Patient's physical address is [address] [place] [address].
[2024-07-01] MEDS: traZODone HCL 50 MG TABLET 150 MG PO (20:32)
[2024-07-01] MEDS: SENNA TABLET 1 TAB PO (20:33)
[2024-07-01] MEDS: AMIODARONE HCL 200 MG TABLET PO (20:33)
--- NOTE | 2024-07-01 22:00 | ESPR_ITS ---
Documentation for date of: 07/01/24 Subjective Subjective Interval history: Patient evaluated hemoglobin hematocrit 8.1 and 26.4 no signs of any active bleeding Exam Vital Signs Temp Pulse Resp BP Pulse Ox O2 Del Method O2 Flow Rate 99.0 F 84 18 142/75 H 98 Nasal Cannula 1 07/01/24 20:00 07/01/24 20:33 07/01/24 20:00 07/01/24 20:33 07/01/24 20:00 07/01/24 20:00 07/01/24 20:00 FiO2 35 07/01/24 16:00 Constitutional Comments: Chronically ill-appearing Routine Abdominal Exam Comments: soft nontender Objective Labs 07/01/24 05:07 07/01/24 05:07 Labs: Laboratory Results - last 24 hr 07/01/24 05:07 WBC 3.7 L RBC 3.42 L Hgb 8.1 L Hct 25.8 L MCV 75 L MCH 23.7 L MCHC 31.4 RDW Std Deviation 49.5 H Plt Count 118 L Neut % (Auto) 83 H Lymph % (Auto) 8 L [place] % (Auto) 7 Eos % (Auto) 1 Baso % (Auto) 0 Neut # (Auto) 3.1 Lymph # (Auto) 0.3 L [place] # (Auto) 0.3 Eos # (Auto) 0.0 Baso # (Auto) 0.0 Immature Gran # (Auto) 0.01 H Absolute Nucleated RBC 0.00 Immature Gran % 0 Nucleated RBC % 0 Sodium 138 Potassium 4.0 Chloride 101 Carbon Dioxide 29.8 Anion Gap 7 BUN 15 Creatinine 0.4 L Estim Creat Clear Calc 137.9 eGFR > 60 BUN/Creatinine Ratio 38 H Glucose 85 Calculated Osmolality 275 Calcium 7.9 L Corrected Calcium 8.9 Total Bilirubin 0.4 AST < 8 ALT < 7 L Alkaline Phosphatase 63 Total Protein 4.7 L Albumin 2.7 L Globulin 2.0 L Albumin/Globulin Ratio 1.4 Impressions Impression: Gastritis hemorrhagic Esophagitis Cardiac arrhythmias. anemia blood loss Continue present treatment Assessment & Plan A&P Narrative # Microcytic anemia with drop in hemoglobin hematocrit requiring blood transfusion Consent obtained for fiberoptic esophagogastroduodenoscopy with possible biopsy possible therapeutic intervention under intravenous moderate sedation Other medical problems include # acute on chronic hypoxic respiratory failure # Parkinson's disease # A-fib rate controlled # History of stage III lung carcinoma thank you very much for the opportunity to participate in the care of this patient Time Spent With Patient Time: Total time spent is greater than 50% in coordination of care (as documented) at patient's floor/unit and/or counseling patient:
[2024-07-02] VITALS: BP 135/75; PULSE 80; RESP 20; TEMP 36.7; O2SAT 98
[2024-07-02 04:00] VITALS: BP 136/64; PULSE 80; RESP 18; TEMP 36.5; O2SAT 96
[2024-07-02] MEDS: BALSAM PERU/CASTOR OIL (Venelex) 60 GM TUBE TOP ×2 (05:39→08:01)
[2024-07-02] MEDS: CARBIDOPA/LEVODOPA 25/100 MG TABLET 2 TAB PO ×2 (05:40→09:01)
[2024-07-02 06:00] VITALS: BMI 22.3
[2024-07-02 07:41] VITALS: PULSE 80; RESP 26; O2SAT 100
[2024-07-02 08:00] VITALS: BP 107/81; PULSE 78; PULSE 80; RESP 28; TEMP 36.6; O2SAT 98
[2024-07-02] MEDS: PANTOPRAZOLE INJ 40 MG VIAL IV (09:01)
[2024-07-02] MEDS: FINASTERIDE 5 MG TABLET PO (09:01)
--- NOTE | 2024-07-02 09:01 | PC.SS ---
Addendum entered by ANJU Coffman 07/02/24 10:12: [place] obtained by transfer Nurse Hossein. [facility] ETA 12pm noon. Bed side nurse notified. [facility] notified. Patient's aware. Original Note: SS follow up: ASW spoke with patient's spouse, Ellie in regards to d/c plan back home with [facility]. Ellie confirmed the home address. Ellie is requesting transportation arranged for the patient around noon time.
[2024-07-02 09:02] VITALS: BP 107/81; PULSE 78
[2024-07-02] MEDS: MEGESTROL ACET 20 MG TABLET 40 MG PO (09:02)
[2024-07-02] MEDS: AMIODARONE HCL 200 MG TABLET PO (09:02)
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
--- NOTE | 2024-07-02 10:08 | CHAP ---
Patient was prayed for by the Spiritual Care Volunteer outside of room. (Volunteer was in the hospital from 09:20-10:00).
[2024-07-02 12:00] VITALS: BP 132/64; PULSE 79; PULSE 82; RESP 26; TEMP 36.9; O2SAT 92
== END 2024-07-02 12:20 | disposition hospice, home (50) | DRG 193 ==
LOC: SERX 15:05 → SERHOLD 16:04 → S2NX 22:43
PROVIDERS: Specialist; Student in an Organized Health Care Education/Training Program; Admitting Provider Student in an Organized Health Care Education/Training Program; Emergency Provider Emergency Medicine; PCP Physician Assistant; Visit Provider Internal Medicine
PROC: (CPT 43239; principal; 2024-06-29 18:00)
DX: J10.00 Influenza due to other identified influenza virus with unspecified type of pneumonia (principal); J96.21 Acute and chronic respiratory failure with hypoxia; K21.01 Gastro-esophageal reflux disease with esophagitis, with bleeding; K29.71 Gastritis, unspecified, with bleeding; J90 Pleural effusion, not elsewhere classified; C34.32 Malignant neoplasm of lower lobe, left bronchus or lung; J44.0 Chronic obstructive pulmonary disease with (acute) lower respiratory infection; F02.82 Dementia in other diseases classified elsewhere, unspecified severity, with psychotic disturbance; D62 Acute posthemorrhagic anemia; I47.19 Other supraventricular tachycardia; G20.A1 Parkinson's disease without dyskinesia, without mention of fluctuations; I10 Essential (primary) hypertension; E11.9 Type 2 diabetes mellitus without complications; I48.0 Paroxysmal atrial fibrillation; N40.0 Benign prostatic hyperplasia without lower urinary tract symptoms; F32.A Depression, unspecified; T21.21XA Burn of second degree of chest wall, initial encounter; X11.8XXA Contact with other hot tap-water, initial encounter; Z87.891 Personal history of nicotine dependence; Z99.81 Dependence on supplemental oxygen; Z92.3 Personal history of irradiation; Z79.899 Other long term (current) drug therapy
CPT/HCPCS: 36415; 71045; 71275; 76999; 80053; 82150; 82728; 82945; 83036; 83540; 83550; 83605; 83615; 83735; 83880; 84100; 84145; 84157; 84443; 85014; 85018; 85025; 85610; 85730; 86850; 86900; 86901; 86923; 87040; 87400; 87635; 87811; 89051; 93005; 93306; 93970; 93971; 94640; 94660; 96365; 96367; 96375; 99285; A4649; A9270; J0283; J0456; J0696; J1643; J1644; J2250; J2270; J2405; J2470; J3010; J3475; J7030; J7050; J7120; J7512; P9016; Q9967